=== PATIENT | male | born 1945 | race Caucasian/White ===

== ENCOUNTER 2016-08-14 10:11 | Inpatient (IN) | payer MEDICARE, OTHER ==
[2016-08-14] VITALS (14 sets, daily range): BP systolic 84–147; BP diastolic 56–72; PULSE 68–149; RESP 16–18; TEMP 98–98.5; O2SAT 97–98
[~2016-08-14] VITALS: Ht 170.2 cm; Wt 77.0 kg
[~2016-08-14 10:11] MED LIST: AUGM875T PO; FLON0.053; LISI-360 PO; LOVA20TA OR; METF850T OR; METO50TA OR; NOVOLOGP2 SQ; OMEP20TA OR; SYNT25TA
[2016-08-14] MEDS ORDERED: OMEP20TA PO (10:43)
[2016-08-14] MEDS ORDERED: LISI40TA PO (10:43)
[2016-08-14] MEDS ORDERED: LEVO25TA4 PO (10:43)
[2016-08-14] MEDS ORDERED: ASPI81CH CHEW (10:43)
[2016-08-14] MEDS ORDERED: NOVO7030P2 SQ ×2 (10:43)
[2016-08-14] MEDS ORDERED: GABA300C5 PO (10:43)
[2016-08-14] MEDS ORDERED: ATOR20TA15 PO (10:43)
[2016-08-14] MEDS ORDERED: HYDR25TA5 PO (10:43)
[2016-08-14] MEDS ORDERED: CYAN1TAB24 (10:43)
[2016-08-14] MEDS ORDERED: NITR1SUB3 SL (10:43)
[2016-08-14] MEDS ORDERED: METF-382 PO (10:43)
[2016-08-14] MEDS ORDERED: AMLO5TAB2 PO (10:43)
[2016-08-14] MEDS ORDERED: METO50TA PO (10:43)
[2016-08-14] MEDS ORDERED: MAGN400C2 PO (10:43)
[2016-08-14] MEDS ORDERED: SODIUM CHLORIDE 0.9% FLUSH 5 ML FLUSH IVF PRN ×2 (10:45→13:15)
[2016-08-14] MEDS ORDERED: ASPIRIN 325 MG TAB PO ONE (10:45)
--- NOTE | 2016-08-14 10:45 | PD ---
HPI Chief Complaint: Cardiac Complaint Time Seen by Provider: 10:34 Travel History International Travel<30 days: No Contact w/Intl Traveler<30days: No Traveled to known affect area: No History of Present Illness HPI Patient presents with concerns of elevated heart rate. Reports that he felt out of sorts overnight and when he awoke this morning he took his blood pressure which revealed elevated pulse rate. Denies any chest pain. He does have history of diabetes and coronary artery disease, hyperlipidemia, carotid disease and hypertension. Occasional cigar. Denies family history. Denies radiation to his left arm shortness of breath urinary or bowel symptoms. He is on a beta salas normally for blood pressure. Reports recent changes of his medications by his new coal chemist. PFSH Past Medical History Hx Anticoagulant Therapy: Yes (asa 81mg) Arthritis: Yes Autoimmune Disease: No Cardiovascular Problems: Yes (htn on meds, 3 vessel bypass) High Cholesterol: Yes Coronary Artery Disease: Yes Diabetes: Yes Hepatitis: Yes Hypertension: Yes Thyroid Disease: Yes Past Surgical History Coronary Artery Bypass Graft: Yes Eye Surgery: Yes (CATARACT SX) Tonsillectomy: Yes Other Surgery: Yes (CAROTID ARTERY SURGERY) Social History Alcohol Use: No Tobacco Use: Yes (OCC CIGAR) Substance Use: No Allergies-Medications (Allergen,Severity, Reaction): Coded Allergies: No Known Allergies (Unverified , 08/14/16) Reported Meds & Prescriptions Reported Meds & Active Scripts Active Reported Nitroglycerin SL (Nitroglycerin) 0.4 Mg Subl 0.4 Mg SL DIRECTED PRN ONE TABLET UNDER THE TONGUE NEEDED FOR CHEST PAIN, MAY REPEAT EVERY FIVE MINUTES FOR A TOTAL OF 3 DOSES OR CALL 911 IF NO RELIEF Levothyroxine (Levothyroxine Sodium) 25 Mcg Tab 25 Mcg PO DAILY Metformin ER (Metformin HCl) 1,000 Mg Porsha 1,000 Mg PO BID With evening meal Gabapentin 300 Mg Cap 300 Mg PO BID Omeprazole 20 Mg Tab 20 Mg PO DAILY Amlodipine (Amlodipine Besylate) 5 Mg Tab 5 Mg PO DAILY Atorvastatin (Atorvastatin Calcium) 20 Mg Tab 20 Mg PO HS Hydrochlorothiazide 25 Mg Tab 25 Mg PO DAILY Metoprolol Tartrate 50 Mg Tab 50 Mg PO BID Aspirin 81 Mg Chew 81 Mg CHEW DAILY Lisinopril 40 Mg Tab 40 Mg PO DAILY B12 (Cyanocobalamin) 1,000 Mcg Tab Magnesium Oxide 400 Mg Cap 1 Cap PO DAILY Novolin 70-30 Inj (Insulin Human Isoph/Insulin Regular) 1,000 Unit/10 Ml Vial 50 Units SQ HS Novolin 70-30 Inj (Insulin Human Isoph/Insulin Regular) 1,000 Unit/10 Ml Vial 52 Units SQ DAILY Review of Systems General / Constitutional: No: Fever Eyes: No: Visual changes HENT: No: Headaches Cardiovascular: Positive: Tachycardia, No: Chest Pain or Discomfort Respiratory: No: Shortness of Breath Gastrointestinal: No: Abdominal Pain Genitourinary: No: Dysuria Musculoskeletal: No: Pain Skin: No Rash Neurologic: No: Weakness Psychiatric: No: Depression Endocrine: No: Polydipsia Hematologic/Lymphatic: No: Easy Bruising Physical Exam Narrative GENERAL: Well-nourished, well-developed patient. SKIN: Warm and dry. HEAD: Normocephalic. EYES: No scleral icterus. No injection or drainage. NECK: Supple, trachea midline. No JVD or lymphadenopathy. CARDIOVASCULAR: Regular rate and rhythm without murmurs, tachycardic RESPIRATORY: Breath sounds equal bilaterally. No accessory muscle use. GASTROINTESTINAL: Abdomen soft, non-tender, nondistended. MUSCULOSKELETAL: No cyanosis, or edema. BACK: Nontender without obvious deformity. No CVA tenderness. Data Data Last Documented VS Vital Signs Date Time Temp Pulse Resp B/P Pulse Ox O2 Delivery O2 Flow Rate FiO2 08/14/16 11:39 146 18 84/57 98 Room Air 08/14/16 10:15 98.5 Orders Electrocardiogram (08/14/16 10:34) Ckmb (Isoenzyme) Profile (08/14/16 10:34) Complete Blood Count With Diff (08/14/16 10:34) Comprehensive Metabolic Panel (08/14/16 10:34) Magnesium (Mg) (08/14/16 10:34) Prothrombin Time / Inr (Pt) (08/14/16 10:34) Act Partial Throm Time (Ptt) (08/14/16 10:34) Troponin I (08/14/16 10:34) Chest, Single Ap (08/14/16 10:34) Ecg Monitoring (08/14/16 10:34) Bilateral Bp Monitoring (08/14/16 10:34) Iv Access Insert/Monitor (08/14/16 10:34) Oximetry (08/14/16 10:34) Oxygen Administration (08/14/16 10:34) Aspirin (Aspirin) (08/14/16 10:45) Sodium Chloride 0.9% Flush (Ns Flush) (08/14/16 10:45) Metoprolol Tartrate Inj (Lopressor Inj) (08/14/16 10:45) CKMB (08/14/16 10:56) CKMB% (08/14/16 10:56) Thyroid Stimulating Hormone (08/14/16 12:29) Digoxin Inj (Lanoxin Inj) (08/14/16 13:00) Admit Order (Ed Use Only) (08/14/16 ) ^ Grinder Operator External Tool / Telemetry (08/14/16 13:04) Vital Signs (Adult) Q4H (08/14/16 13:04) Diet 1800 Ada Cons Carb (08/14/16 Lunch) Activity Oob With Assistance (08/14/16 13:04) Bedside Glucose MAICOL.AC&HS (08/14/16 13:04) Creatine Kinase (Cpk) (08/14/16 17:00) Creatine Kinase (Cpk) (08/14/16 23:00) Troponin I (08/14/16 17:00) Troponin I (08/14/16 23:00) ^ Saline Lock (08/14/16 13:04) Resp Oxygen Smith C Titrat 1-4 L (08/14/16 ) ^ Notify Dr: Other (08/14/16 13:04) Ondansetron Inj (Zofran Inj) (08/14/16 13:15) Acetaminophen (Tylenol) (08/14/16 13:15) Acetaminophen Supp (Tylenol Supp) (08/14/16 13:15) Sodium Chloride 0.9% Flush (Ns Flush) (08/14/16 21:00) Sodium Chloride 0.9% Flush (Ns Flush) (08/14/16 13:15) Consult Cardiology (08/14/16 13:04) Labs Laboratory Tests Test 08/14/16 10:56 White Blood Count 7.9 TH/MM3 Red Blood Count 4.31 MIL/MM3 Hemoglobin 13.3 GM/DL Hematocrit 40.0 % Mean Corpuscular Volume 92.7 FL Mean Corpuscular Hemoglobin 30.9 PG Mean Corpuscular Hemoglobin 33.3 % Concent Red Cell Distribution Width 13.1 % Platelet Count 172 TH/MM3 Mean Platelet Volume 8.7 FL Neutrophils (%) (Auto) 57.3 % Lymphocytes (%) (Auto) 29.4 % Monocytes (%) (Auto) 10.1 % Eosinophils (%) (Auto) 2.3 % Basophils (%) (Auto) 0.9 % Neutrophils # (Auto) 4.5 TH/MM3 Lymphocytes # (Auto) 2.3 TH/MM3 Monocytes # (Auto) 0.8 TH/MM3 Eosinophils # (Auto) 0.2 TH/MM3 Basophils # (Auto) 0.1 TH/MM3 CBC Comment DIFF FINAL Differential Comment Prothrombin Time 10.9 SEC Prothromb Time International 1.0 RATIO Ratio Activated Partial 32.0 SEC Thromboplast Time Sodium Level 141 MEQ/L Potassium Level 4.4 MEQ/L Chloride Level 105 MEQ/L Carbon Dioxide Level 25.3 MEQ/L Anion Gap 11 MEQ/L Blood Urea Nitrogen 20 MG/DL Creatinine 1.10 MG/DL Estimat Glomerular Filtration 66 ML/MIN Rate Random Glucose 314 MG/DL Calcium Level 9.0 MG/DL Magnesium Level 1.9 MG/DL Total Bilirubin 0.4 MG/DL Aspartate Amino Transf 27 U/L (AST/SGOT) Alanine Aminotransferase 27 U/L (ALT/SGPT) Alkaline Phosphatase 49 U/L Total Creatine Kinase 170 U/L Creatine Kinase MB 2.8 NG/ML Troponin I 0.39 NG/ML Total Protein 7.3 GM/DL Albumin 3.5 GM/DL Thyroid Stimulating Hormone 3.000 uIU/ML [address] [place] [address] Medical Decision Making Medical Screen Exam Complete: Yes Emergency Medical Condition: Yes Differential Diagnosis SVT, sepsis, ACS, A. fib Narrative Course Assessment and plan discussed with patient and at bedside. Initial EKG reveals a junctional rhythm with a regular rate of 148. No previous EKG available for comparison. Unable to slow rate with IV beta salas. Cardiac enzymes are negative. Last 72 hours Impressions Chest X-Ray 08/14/16 1034 Signed Impressions: Service Date/Time: Sunday, August 14, 2016 10:59 - CONCLUSION: No acute cardiopulmonary abnormality is identified. Solo Comer MD Of note prior to digoxin dosing and after admission there was a 5-10 second period where the rate dropped to 70 and patient appeared to be in a 3-1 atrial flutter. Physician Communication Physician Communication Spoke with Dr. Disla and Dr Solitario who are in agreement will admit for serial enzymes and cardiac evaluation. Recommendations of digoxin IV dose and possible Cardizem drip versus adenosine. I appreciate Dr. Disla's input. Diagnosis Primary Impression: Tachycardia with heart rate 141-160 beats per minute Admitting Information Admitting Physician Requests: Admit Bridger Beal MD Aug 14, 2016 10:45
[2016-08-14] MEDS: METOPROLOL TARTRATE 5 MG/5 ML VIAL IVS SCH ×3 (10:55→11:20)
[2016-08-14 11:04] LABS: AUTOMATED NEUTROPHIL # 4.5 TH/MM3 (1.8-7.7); BASOPHIL # 0.1 TH/MM3 (0-0.2); BASOPHIL % 0.9 % (0.0-2.0); EOSINOPHIL # 0.2 TH/MM3 (0-0.4); EOSINOPHIL % 2.3 % (0.0-4.0); HEMO FLAGS DIFF FINAL; LYMPH % 29.4 % (9.0-44.0); LYMPHOCYTE # 2.3 TH/MM3 (1.0-4.8); MEAN CELL VOLUME 92.7 FL (80.0-100.0); MEAN CORPUSCULAR HEMOGLOBIN 30.9 PG (27.0-34.0); MEAN CORPUSCULAR HGB CONC 33.3 % (32.0-36.0); MONO % 10.1 % (0.0-8.0); NEUT % 57.3 % (16.0-70.0); PLATELET COUNT 172 TH/MM3 (150-450); RED BLOOD COUNT 4.31 MIL/MM3 (4.50-5.90); RED CELL DISTRIBUTION WIDTH 13.1 % (11.6-17.2); WHITE BLOOD COUNT 7.9 TH/MM3 (4.0-11.0)
[2016-08-14 11:12] LABS: CHLORIDE 105 MEQ/L (98-107); POTASSIUM 4.4 MEQ/L (3.5-5.1); SODIUM (NA) 141 MEQ/L (136-145)
--- NOTE | 2016-08-14 11:13 | RADHPO ---
EXAM DATE/TIME: 08/14/2016 10:59 [facility] COMPARISON: No previous studies available for comparison. INDICATIONS : Elevated heart rate , short of breath MEDICAL HISTORY : Cardiovascular disease. SURGICAL HISTORY : CABG. ENCOUNTER: Initial ACUITY: 1 day PAIN SCORE: 0/10 LOCATION: Bilateral chest FINDINGS: Portable AP view of the chest demonstrates a normal-sized cardiac silhouette. No effusion, consolidat ion, or pneumothorax is visualized. The bones and soft tissues demonstrate no acute abnormality. Coleen ent is post median sternotomy. CONCLUSION: No acute cardiopulmonary abnormality is identified. Solo Comer MD on August 14, 2016 at 11:11 Board Certified Radiologist. This report was verified electronically.
[2016-08-14 11:15] LABS: ANION GAP 11 MEQ/L (5-15); BICARBONATE 25.3 MEQ/L (21.0-32.0)
[2016-08-14 11:16] LABS: BLOOD UREA NITROGEN 20 MG/DL (7-18); MAGNESIUM 1.9 MG/DL (1.5-2.5); PROTHROMBIN TIME - PATIENT 10.9 SEC (9.8-11.6)
[2016-08-14 11:19] LABS: ALT (GPT) 27 U/L (12-78); AST (GOT) 27 U/L (15-37); GLOMERULAR FILTRATION RATE 66 ML/MIN (>89)
[2016-08-14 11:20] LABS: TOTAL BILIRUBIN ADULT 0.4 MG/DL (0.2-1.0)
[2016-08-14 11:21] LABS: ALKALINE PHOSPHATASE 49 U/L (45-117); CREATINE KINASE 170 U/L (39-308)
[2016-08-14 11:34] LABS: CKMB 2.8 NG/ML (0.5-3.6)
[2016-08-14] MEDS ORDERED: DIGOXIN 0.5 MG/2 ML VIAL IV PUSH ONE (13:00)
[2016-08-14] MEDS ORDERED: ACETAMINOPHEN 325 MG TAB PO PRN (13:15)
[2016-08-14] MEDS ORDERED: ACETAMINOPHEN 650 MG SUPP PR PRN (13:15)
[2016-08-14] MEDS ORDERED: ONDANSETRON HCL 4 MG/2 ML VIAL IV PRN (13:15)
[2016-08-14] MEDS ORDERED: DILTIAZEM INJ 125 MG in SODIUM CHLORIDE 0.9% INJ 100 ML IV SCH (14:30)
[2016-08-14] MEDS ORDERED: SODIUM CHLORIDE 0.9% FLUSH 5 ML FLUSH FLUSH PRN (14:30)
[2016-08-14] MEDS ORDERED: MAGNESIUM HYDROXIDE SUSP 30 ML CUP PO PRN (14:30)
[2016-08-14] MEDS ORDERED: DEXTROSE 50% IN WATER 50 ML VIAL(D50) IV PUSH PRN (14:30)
[2016-08-14] MEDS ORDERED: TEMAZEPAM 15 MG CAP PO PRN (14:30)
[2016-08-14] MEDS ORDERED: GLUCAGON 1 MG/ML VIAL OTHER PRN (14:30)
[2016-08-14] MEDS ORDERED: NALOXONE HCL 0.4 MG/ML AMP IV PRN (14:30)
[2016-08-14] MEDS: DILTIAZEM INJ 125 MG in SODIUM CHLORIDE 0.9% INJ 100 ML IV SCH (15:34)
[2016-08-14] MEDS: INSULIN ASPART SUPPLEMENTAL SCALE SQ SCH ×2 (16:00→19:57)
[2016-08-14] MEDS ORDERED: ENOXAPARIN SODIUM 80 MG/0.8 ML SYRINGE SQ ONE (19:45)
[2016-08-14] MEDS ORDERED: ENOXAPARIN SODIUM 30 MG/0.3 ML SYRINGE SQ ONE (19:45)
[2016-08-14] MEDS: METOPROLOL TARTRATE 50 MG TAB PO SCH (19:56)
[2016-08-14] MEDS: ATORVASTATIN 20 MG TAB PO SCH (19:56)
[2016-08-14] MEDS: GABAPENTIN 300 MG CAP PO SCH (19:56)
[2016-08-14] MEDS: SODIUM CHLORIDE 0.9% FLUSH 5 ML FLUSH FLUSH SCH (19:57)
[2016-08-14] MEDS ORDERED: SODIUM CHLORIDE 0.9% FLUSH 5 ML FLUSH IVF SCH (21:00)
[2016-08-14] MEDS ORDERED: METOPROLOL TARTRATE 25 MG TAB PO SCH (21:00)
[2016-08-15] VITALS (25 sets, daily range): BP systolic 118–153; BP diastolic 60–72; PULSE 54–79; RESP 16–18; TEMP 97–98.6; O2SAT 95–99
[2016-08-15] MEDS: LEVOTHYROXINE SODIUM 25 MCG TAB PO SCH (05:40)
[2016-08-15] MEDS: INSULIN ASPART SUPPLEMENTAL SCALE SQ SCH ×4 (06:20→20:10)
[2016-08-15 07:16] LABS: BICARBONATE 28.3 MEQ/L (21.0-32.0); POTASSIUM 3.9 MEQ/L (3.5-5.1)
[2016-08-15] MEDS: ASPIRIN 81 MG CHEW TAB CHEW SCH (08:46)
[2016-08-15] MEDS: SODIUM CHLORIDE 0.9% FLUSH 5 ML FLUSH FLUSH SCH ×2 (08:46→20:05)
[2016-08-15] MEDS: PANTOPRAZOLE SOD 20 MG DELAYED RELEASE TAB PO SCH (08:46)
[2016-08-15] MEDS: GABAPENTIN 300 MG CAP PO SCH ×2 (08:46→20:07)
[2016-08-15] MEDS: METOPROLOL TARTRATE 50 MG TAB PO SCH ×2 (08:47→20:06)
--- NOTE | 2016-08-15 09:29 | HHI.HP ---
[facility] Admission Diagnosis tachycardia Diagnoses: (1) Tachycardia with heart rate 141-160 beats per minute (2) Elevated troponin I level (3) Benign hypertension (4) Diabetes mellitus, type 2 (5) Hypothyroidism (6) Diabetic neuropathy Chief Complaint: Increased heart rate Travel History International Travel<30 Days: No Contact w/Intl Traveler <30 Da: No Traveled to Known Affected Are: No History of Present Illness 71-year-old male with a past medical history of diabetes type 2, hypothyroidism, status post CABG thousand 3, bilateral carotid stenosis initially went to [facility] ED evaluation of the sustained heart rate of 163 without any heart palpitation, chest pain or shortness of breath yesterday 08/14. Patient was then transferred to [facility] with consultation with cardiology as patient with elevated cardiac enzymes and sustained heart rate. Patient states a day before on 08/13/16 he was feeling a little bit off over was able to go out fishing and had no complaint of chest pain, febrile episode. He denies any GI bleed Review of Systems Other Other 12 systems reviewed and are negative except for the one mentioned in history of present illness Past Family Social History Past Medical History Hx Anticoagulant Therapy: Yes (asa 81mg) Arthritis: Yes Cardiovascular Problems: Yes (htn on meds, 3 vessel bypass) High Cholesterol: Yes Coronary Artery Disease: Yes Diabetes: Yes Hepatitis: Yes Hypertension: Yes Thyroid Disease: Yes Past Surgical History Coronary Artery Bypass Graft: Yes Eye Surgery: Yes (CATARACT SX) Tonsillectomy: Yes Other Surgery: Yes (CAROTID ARTERY SURGERY) Reported Medications Nitroglycerin SL (Nitroglycerin) 0.4 Mg Subl 0.4 Mg SL DIRECTED PRN ONE TABLET UNDER THE TONGUE NEEDED FOR CHEST PAIN, MAY REPEAT EVERY FIVE MINUTES FOR A TOTAL OF 3 DOSES OR CALL 911 IF NO RELIEF Levothyroxine (Levothyroxine Sodium) 25 Mcg Tab 25 Mcg PO DAILY Metformin ER (Metformin HCl) 1,000 Mg Porsha 1,000 Mg PO BID With evening meal Gabapentin 300 Mg Cap 300 Mg PO BID Omeprazole 20 Mg Tab 20 Mg PO DAILY Amlodipine (Amlodipine Besylate) 5 Mg Tab 5 Mg PO DAILY Atorvastatin (Atorvastatin Calcium) 20 Mg Tab 20 Mg PO HS Hydrochlorothiazide 25 Mg Tab 25 Mg PO DAILY Metoprolol Tartrate 50 Mg Tab 50 Mg PO BID Aspirin 81 Mg Chew 81 Mg CHEW DAILY Lisinopril 40 Mg Tab 40 Mg PO DAILY B12 (Cyanocobalamin) 1,000 Mcg Tab Magnesium Oxide 400 Mg Cap 1 Cap PO DAILY Novolin 70-30 Inj (Insulin Human Isoph/Insulin Regular) 1,000 Unit/10 Ml Vial 50 Units SQ HS Novolin 70-30 Inj (Insulin Human Isoph/Insulin Regular) 1,000 Unit/10 Ml Vial 52 Units SQ DAILY Allergies: Coded Allergies: No Known Allergies (Unverified , 08/14/16) Family History Mother had hypertension Brother has COPD Social History Alcohol Use: No Tobacco Use: Yes (OCC CIGAR) Substance Use: No Physical Exam Vital Signs Vital Signs Date Time Temp Pulse Resp B/P Pulse Ox O2 Delivery O2 Flow Rate FiO2 08/15/16 07:15 97.0 65 16 153/72 96 08/15/16 06:00 66 08/15/16 05:00 70 08/15/16 04:00 79 08/15/16 03:56 Room Air 08/15/16 03:56 98.4 65 18 133/64 99 08/15/16 03:00 74 08/15/16 02:00 70 08/15/16 01:00 62 08/15/16 00:00 98.6 62 18 121/65 97 08/15/16 00:00 66 08/15/16 00:00 Room Air 08/14/16 23:00 69 08/14/16 22:00 71 08/14/16 21:00 74 08/14/16 20:00 98.3 68 18 129/64 98 08/14/16 20:00 68 08/14/16 18:07 120 08/14/16 17:44 98.0 112 18 117/62 97 08/14/16 15:35 137 18 124/56 98 Room Air 08/14/16 13:50 103 18 115/68 98 Room Air 08/14/16 13:39 98 21 08/14/16 13:13 111 18 147/67 98 Room Air 08/14/16 11:39 146 18 84/57 98 Room Air 08/14/16 11:19 145 18 104/64 98 Room Air 08/14/16 10:58 98 Room Air 08/14/16 10:58 100/66 121/72 08/14/16 10:15 98.5 149 16 Physical Exam GENERAL: This is a well-nourished, well-developed patient, in no apparent distress. SKIN: No rashes, ecchymoses or lesions. Cool and dry. HEAD: Atraumatic. Normocephalic. No temporal or scalp tenderness. EYES: Pupils equal round and reactive. Extraocular motions intact. No scleral icterus. No injection or drainage. ENT: Nose without bleeding, purulent drainage or septal hematoma. Throat without erythema, tonsillar hypertrophy or exudate. Uvula midline. Airway patent. NECK: Trachea midline. No JVD or lymphadenopathy. Supple, nontender, no meningeal signs. CARDIOVASCULAR: Tachycardia Regular rate and rhythm without murmurs, gallops, or rubs. RESPIRATORY: Clear to auscultation. Breath sounds equal bilaterally. No wheezes , rales, or rhonchi. GASTROINTESTINAL: Abdomen soft, non-tender, nondistended. No hepato-splenomegaly , or palpable masses. No guarding. MUSCULOSKELETAL: Extremities without clubbing, cyanosis, or edema. No joint tenderness, effusion, or edema noted. No calf tenderness. Negative Homans sign bilaterally. NEUROLOGICAL: Awake and alert. Cranial nerves II through XII intact. Motor and sensory grossly within normal limits. Five out of 5 muscle strength in all muscle groups. Normal speech. Laboratory Laboratory Tests Test 08/14/16 08/14/16 08/15/16 08/15/16 10:56 19:20 00:43 06:25 White Blood Count 7.9 Red Blood Count 4.31 Hemoglobin 13.3 Hematocrit 40.0 Mean Corpuscular Volume 92.7 Mean Corpuscular Hemoglobin 30.9 Mean Corpuscular Hemoglobin 33.3 Concent Red Cell Distribution Width 13.1 Platelet Count 172 Mean Platelet Volume 8.7 Neutrophils (%) (Auto) 57.3 Lymphocytes (%) (Auto) 29.4 Monocytes (%) (Auto) 10.1 Eosinophils (%) (Auto) 2.3 Basophils (%) (Auto) 0.9 Neutrophils # (Auto) 4.5 Lymphocytes # (Auto) 2.3 Monocytes # (Auto) 0.8 Eosinophils # (Auto) 0.2 Basophils # (Auto) 0.1 CBC Comment DIFF FINAL Differential Comment Prothrombin Time 10.9 Prothromb Time International 1.0 Ratio Activated Partial 32.0 Thromboplast Time Sodium Level 141 140 Potassium Level 4.4 3.9 Chloride Level 105 103 Carbon Dioxide Level 25.3 28.3 Anion Gap 11 9 Blood Urea Nitrogen 20 16 Creatinine 1.10 0.95 Estimat Glomerular Filtration 66 78 Rate Random Glucose 314 153 Calcium Level 9.0 8.8 Magnesium Level 1.9 Total Bilirubin 0.4 Aspartate Amino Transf 27 (AST/SGOT) Alanine Aminotransferase 27 (ALT/SGPT) Alkaline Phosphatase 49 Total Creatine Kinase 170 128 103 Creatine Kinase MB 2.8 Troponin I 0.39 0.76 0.67 Total Protein 7.3 Albumin 3.5 Thyroid Stimulating Hormone 3.000 3rd Gen Result Diagram: 08/14/16 1056 08/15/16 0625 Imaging Last Impressions Chest X-Ray 08/14/16 1034 Signed Impressions: Service Date/Time: Sunday, August 14, 2016 10:59 - CONCLUSION: No acute cardiopulmonary abnormality is identified. Solo Comer MD Assessment and Plan Problem List: (1) Non-ST elevation [place] (NSTEMI) ICD Code: I21.4 Status: Acute (2) Tachycardia with heart rate 141-160 beats per minute ICD Code: R00.0 Status: Acute (3) Elevated troponin I level ICD Code: R79.89 Status: Acute (4) Benign hypertension ICD Code: I10 Status: Acute (5) Diabetes mellitus, type 2 ICD Code: E11.9 Status: Acute (6) Hypothyroidism ICD Code: E03.9 Status: Acute (7) Diabetic neuropathy ICD Code: E11.40 Status: Acute Assessment and Plan 71-year-old male with 1-NSTEMI: Status post CABG x3 2013 and bilateral carotid stenosis. ACS with elevated cardiac enzyme and normal TSH. Currently on Cardizem drip/beta salas /aspirin, status post digoxin IV 1 and Lopressor push 3 in ED. Status post Lovenox 80 mg 2 . Cardiology consultation pending and continue telemetry monitoring 2-Elevated cardiac enzyme: Cardiology consultation pending for further evaluation for possible nuclear stress test versus heart catheterization. Check 2-D echo, BNP 3-Diabetes type 2: Continue to hold oral hypoglycemic agent, on sliding scale insulin with fingerstick blood glucose monitoring 4-Hypothyroidism: Normal TSH, resume outpatient medications 5-Diabetic neuropathy: Continue Neurontin 6-Hyperlipidemia: On Lipitor, check lipid profile 7-Hypertension: Currently on Lopressor 50 mg twice a day, add Norvasc 5 mg daily. Hydrochlorothiazide and lisinopril on hold Code Status Full code Discussed Condition With Patient Physician Certification 2 Midnight Certification Type: Admission for Inpatient Services Order for Inpatient Services The services are ordered in accordance with Medicare regulations or non- Medicare payer requirements, as applicable. In the case of services not specified as inpatient-only, they are appropriately provided as inpatient services in accordance with the 2-midnight benchmark. Estimated LOS (days): 2 days is the estimated time the patient will need to remain in the hospital, assuming treatment plan goals are met and no additional complications. Post-Hospital Plan: Not yet determined Champ Kingston MD Aug 15, 2016 09:29
[2016-08-15] MEDS ORDERED: IODIXANOL 320 MG/ML 50 ML VIAL (for Cath Lab) IV ONE (12:10)
[2016-08-15] MEDS ORDERED: IODIXANOL 320 MG/ML 100 ML VIAL (for Cath Lab) OTHER ONE (12:10)
[2016-08-15] MEDS ORDERED: HEPARIN-NS/PF INJ 500 ML ONE (12:16)
[2016-08-15] MEDS ORDERED: HEPARIN SODIUM - IV 10,000 UNITS/10 ML VIAL ONE (12:46)
[2016-08-15] MEDS ORDERED: CLOPIDOGREL 300 MG TAB ONE (13:20)
[2016-08-15] MEDS ORDERED: TIROFIBAN INFUSION INJ 250 ML IV ONE (13:22)
[2016-08-15] MEDS ORDERED: SODIUM CHLORIDE 0.9% FLUSH 5 ML FLUSH IVF PRN (13:45)
[2016-08-15] MEDS ORDERED: CLOPIDOGREL 300 MG TAB PO ONE (13:45)
[2016-08-15] MEDS ORDERED: MISC INFORMATION XX ONE (13:45)
[2016-08-15] MEDS ORDERED: TIROFIBAN INFUSION INJ 250 ML IV SCH (15:00)
[2016-08-15] MEDS: DILTIAZEM INJ 125 MG in SODIUM CHLORIDE 0.9% INJ 100 ML IV SCH (17:00)
--- NOTE | 2016-08-15 17:34 | MB ---
cc: KO GOODWIN M.D. DATE OF CONSULTATION 08/15/2016 REASON FOR CONSULTATION Donnell is a very pleasant 71-year-old gentleman status post CABG 14 years ago, followed at the [facility]. Presented to the [facility] ER yesterday with SVT which was regular. The patient perceived his heart rate to be elevated and he took his blood pressure which also showed an elevated pulse. Denies any chest pain, fevers, chills, cough, GI or bleeding, paroxysmal nocturnal dyspnea, orthopnea, syncope or dizziness. PAST MEDICAL HISTORY Includes: 1. Diabetes. 2. Coronary artery disease. 3. Status post CABG. 4. Hyperlipidemia. 5. Carotid stenosis. 6. Hypertension. 7. Tobacco use. 8. Arthritis. 9. Hypertension. 10. Hepatitis. 11. Thyroid disease. 12. Status post carotid endarterectomy. 13. Tonsillectomy. 14. Cataract surgery. SOCIAL HISTORY He smokes a cigar occasionally. Alcohol he denies. ALLERGIES NONE. MEDICATIONS PRIOR TO ADMISSION 1. Sublingual nitroglycerin. 2. Levothyroxine. 3. Metformin. 4. Gabapentin. 5. Omeprazole. 6. Amlodipine 5 daily. 7. Atorvastatin 20 bedtime. 8. HCTZ 25 daily. 9. Metoprolol 50 b.i.d. 10. Aspirin 81 mg daily. 11. Lisinopril 40 daily. 12. B12. 13. Magnesium oxide. 14. Novolin. MEDICATIONS In the hospital: 1. Amlodipine 5 mg daily. 2. Aspirin 81 mg daily. 3. Pantoprazole 20 mg daily. 4. Levothyroxine 25 mcg daily. 5. Atorvastatin 20 at bedtime. 6. Gabapentin 300 b.i.d. 7. Metoprolol 50 b.i.d. 8. Lovenox 80 subcu x1. 9. Cardizem drip IV. 10. Digoxin 0.5 IV. PHYSICAL EXAMINATION VITAL SIGNS: Blood pressure 153/72, pulse 65, temperature 97.0. Respiratory rate 16. Sats 96% on room air. GENERAL: He is alert and oriented times three in no acute distress. NECK: Supple. No JVD or bruit. CARDIOVASCULAR: S1-S2. No murmurs, rubs, or gallops. LUNGS: Clear to auscultation bilaterally. ABDOMEN: Soft, nontender, nondistended with positive bowel sounds. EXTREMITIES: No extremity edema. LABORATORY DATA White count 7.9, hemoglobin 15.3, hematocrit 40.0, platelet count 172. Initial troponin is 0.39, second troponin 0.76, third troponin 0.67. Sodium 140, potassium 3.9, chloride 103, bicarbonate 23, BUN 16, creatinine 0.95. Glucose 133. TSH 3.0. INR is 1.0. IMAGING Chest x-ray no acute cardiopulmonary abnormality is identified. LABORATORY DATA EKG on admission SVT at a rate of [address] depression mm in the inferior leads. J point elevation in lead V1, V2, V3. FINAL DIAGNOSES 1. Non-ST elevation myocardial infarction. 2. Coronary artery disease. 3. Status post coronary artery bypass graft. 4. Diabetes mellitus. 5. Supraventricular tachycardia. 6. Tobacco use. 7. Hypertension. 8. Hyperlipidemia. DISCUSSION The patient presents with a non-ST elevation myocardial infarction. He is diabetic with bypass graft greater than 10 years old, therefore I do think he is high risk for ischemic etiology and high risk for an adverse cardiac event without urgent left heart catheterization, therefore, I think urgent left heart catheterization is medically necessary. I have explained to the patient the risk of the cath / PCI is a 10% chance of , stroke, heart attack, bleeding, need for emergency bypass surgery, need for surgery, need for dialysis, need for blood transfusion, anaphylaxis, arrhythmia, bleeding and infection. The patient understands and consents. Otherwise continue beta salas, aspirin, Lipitor and amlodipine. Cardizem drip p.r.n. Consider adding an SHEYLA inhibitor. Also note the patient has no known drug allergies. Ko Goodwin MD AWC/KK /12:30 PM /5:09 PM
[2016-08-15] MEDS ORDERED: ATROPINE SULFATE 1 MG/10 ML SYRINGE ONE (19:02)
[2016-08-15] MEDS ORDERED: EPINEPHrine HCL (1:10,000) 1 MG/10 ML SYRINGE ONE (19:02)
[2016-08-15] MEDS: SODIUM CHLORIDE 0.9% FLUSH 5 ML FLUSH IVF SCH (20:05)
[2016-08-15] MEDS: ATORVASTATIN 20 MG TAB PO SCH (20:06)
[2016-08-16] VITALS (17 sets, daily range): BP systolic 136–141; BP diastolic 68–70; PULSE 60–78; RESP 18; TEMP 98–98.6; O2SAT 97–98
[2016-08-16 05:12] LABS: AUTOMATED NEUTROPHIL # 4.2 TH/MM3 (1.8-7.7); BASOPHIL # 0.1 TH/MM3 (0-0.2); BASOPHIL % 1.2 % (0.0-2.0); EOSINOPHIL # 0.1 TH/MM3 (0-0.4); EOSINOPHIL % 1.9 % (0.0-4.0); HEMO FLAGS DIFF FINAL; LYMPHOCYTE # 2.4 TH/MM3 (1.0-4.8); MEAN CELL VOLUME 91.4 FL (80.0-100.0); MEAN CORPUSCULAR HEMOGLOBIN 31.3 PG (27.0-34.0); MEAN CORPUSCULAR HGB CONC 34.3 % (32.0-36.0); MONO % 12.1 % (0.0-8.0); NEUT % 53.8 % (16.0-70.0); PLATELET COUNT 156 TH/MM3 (150-450); RED BLOOD COUNT 3.94 MIL/MM3 (4.50-5.90); RED CELL DISTRIBUTION WIDTH 13.2 % (11.6-17.2); WHITE BLOOD COUNT 7.8 TH/MM3 (4.0-11.0)
[2016-08-16] MEDS: LEVOTHYROXINE SODIUM 25 MCG TAB PO SCH (05:12)
[2016-08-16 05:30] LABS: BICARBONATE 26.4 MEQ/L (21.0-32.0); POTASSIUM 3.8 MEQ/L (3.5-5.1)
[2016-08-16 05:32] LABS: HDL CHOLESTEROL 40.8 MG/DL (40.0-60.0)
[2016-08-16] MEDS: INSULIN ASPART SUPPLEMENTAL SCALE SQ SCH ×2 (06:30→11:00)
[2016-08-16] MEDS: METOPROLOL TARTRATE 50 MG TAB PO SCH (08:30)
[2016-08-16] MEDS: GABAPENTIN 300 MG CAP PO SCH (08:30)
[2016-08-16] MEDS: PANTOPRAZOLE SOD 20 MG DELAYED RELEASE TAB PO SCH (08:30)
[2016-08-16] MEDS: ASPIRIN 81 MG CHEW TAB CHEW SCH (08:31)
[2016-08-16] MEDS: SODIUM CHLORIDE 0.9% FLUSH 5 ML FLUSH FLUSH SCH (08:31)
[2016-08-16] MEDS: SODIUM CHLORIDE 0.9% FLUSH 5 ML FLUSH IVF SCH (08:32)
[2016-08-16] MEDS ORDERED: ASPIRIN 81 MG CHEW TAB PO SCH (09:00)
[2016-08-16] MEDS ORDERED: CLOPIDOGREL 75 MG TAB PO SCH (09:00)
[2016-08-16] MEDS ORDERED: RAMIPRIL 2.5 MG CAP PO SCH (09:00)
[2016-08-16] MEDS ORDERED: amLODIPine BESYLATE 5 MG TAB PO SCH (09:00)
--- NOTE | 2016-08-16 09:57 | HHI.PR ---
Subjective Remarks Follow-up non-ST elevation PR 08/16/16-patient seen and examined, status post left heart catheterization 08/15 and currently patient denies any chest pain or shortness of breath Objective Vitals Vital Signs Date Time Temp Pulse Resp B/P Pulse Ox O2 Delivery O2 Flow Rate FiO2 08/16/16 09:49 98.6 68 18 141/70 98 08/16/16 09:48 74 08/16/16 08:04 76 08/16/16 07:46 78 08/16/16 07:46 Room Air 08/16/16 06:00 66 08/16/16 05:00 64 08/16/16 04:00 60 08/16/16 03:45 98.3 60 18 136/68 98 08/16/16 03:45 Room Air 08/16/16 03:00 62 08/16/16 02:00 63 08/16/16 01:00 61 08/16/16 00:00 98.1 67 18 141/68 97 08/16/16 00:00 67 08/16/16 00:00 Room Air 08/15/16 23:00 65 08/15/16 22:00 62 08/15/16 21:00 63 08/15/16 20:00 98.4 60 18 138/65 99 08/15/16 20:00 Room Air 08/15/16 20:00 60 08/15/16 18:16 71 08/15/16 17:00 66 08/15/16 16:00 60 08/15/16 15:26 98.6 54 16 118/60 95 08/15/16 15:00 57 08/15/16 14:00 60 08/15/16 11:00 62 08/15/16 11:00 98.4 63 16 151/70 97 08/15/16 11:00 97 Room Air 08/15/16 10:00 67 I/O 08/15/16 08/15/16 08/15/16 08/16/16 08/16/16 08/16/16 07:00 15:00 23:00 07:00 15:00 23:00 Intake Total 290 ml 480 ml 242 ml 0 ml Output Total 600 ml 425 ml 750 ml Balance -310 ml 55 ml -508 ml 0 ml Intake Oral 240 ml 480 ml 240 ml IV Total 50 ml 2 ml 0 ml Output Urine Total 600 ml 425 ml 750 ml # Bowel Movements 0 0 0 Result Diagram: 08/16/169 08/16/169 Imaging Last Impressions Chest X-Ray 08/14/16 1034 Signed Impressions: Service Date/Time: Sunday, August 14, 2016 10:59 - CONCLUSION: No acute cardiopulmonary abnormality is identified. Solo Comer MD Objective Remarks GENERAL: NAD SKIN: Warm and dry. HEAD: Normocephalic. EYES: No scleral icterus. No injection or drainage. NECK: Supple, trachea midline. No JVD or lymphadenopathy. CARDIOVASCULAR: Regular rate and rhythm without murmurs, gallops, or rubs. RESPIRATORY: Breath sounds equal bilaterally. No accessory muscle use. GASTROINTESTINAL: Abdomen soft, non-tender, nondistended. MUSCULOSKELETAL: No cyanosis, or edema. BACK: Nontender without obvious deformity. No CVA tenderness. A/P Problem List: (1) Non-ST elevation [place] (NSTEMI) ICD Code: I21.4 Status: Acute (2) Tachycardia with heart rate 141-160 beats per minute ICD Code: R00.0 Status: Acute (3) Elevated troponin I level ICD Code: R79.89 Status: Acute (4) Benign hypertension ICD Code: I10 Status: Chronic (5) Diabetes mellitus, type 2 ICD Code: E11.9 Status: Chronic (6) Hypothyroidism ICD Code: E03.9 Status: Chronic (7) Diabetic neuropathy ICD Code: E11.40 Status: Chronic Assessment and Plan 71-year-old male with 1-NSTEMI: Status post CABG x3 2013 and bilateral carotid stenosis. ACS with elevated cardiac enzyme and normal TSH. Status post left heart catheterization with stent placement 08/15/16 and continue with Currently on Plavix/beta salas /aspirin /Lipitor/Altace no longer on Cardizem drip. status post digoxin IV 1 and Lopressor push 3 in ED. Status post Lovenox 80 mg 2 . Cardiology consultation pending and continue telemetry monitoring. 2-D echo pending, BNP 55 2-Diabetes type 2: Continue to hold oral hypoglycemic agent, on sliding scale insulin with fingerstick blood glucose monitoring 3-Hypothyroidism: Normal TSH, continue outpatient medications 4-Diabetic neuropathy: Continue Neurontin 5-Hyperlipidemia: On Lipitor 20 mg at bedtime, check lipid profile 6-Hypertension: Currently on Lopressor 50 mg twice a day,Norvasc 5 mg daily, Altace 2.5 mg daily. Hydrochlorothiazide on hold Champ Kingston MD Aug 16, 2016 09:57
--- NOTE | 2016-08-16 10:02 | HHI.DS ---
Discharge Summary Admission Date Aug 14, 2016 at 13:12 Discharge Date: Aug 16, 2016 Admitting Diagnosis tachycardia (1) Non-ST elevation [place] (NSTEMI) ICD Code: I21.4 (2) Tachycardia with heart rate 141-160 beats per minute ICD Code: R00.0 (3) Elevated troponin I level ICD Code: R79.89 (4) Benign hypertension ICD Code: I10 (5) Diabetes mellitus, type 2 ICD Code: E11.9 (6) Hypothyroidism ICD Code: E03.9 (7) Diabetic neuropathy ICD Code: E11.40 Procedures Left heart catheterization with stent placement 08/15/16 Brief History - From Admission 71-year-old male with a past medical history of diabetes type 2, hypothyroidism, status post CABG thousand 3, bilateral carotid stenosis initially went to [facility] evaluation of the sustained heart rate of 163 without any heart palpitation, chest pain or shortness of breath yesterday 08/14. Patient was then transferred to [facility] with consultation with cardiology as patient with elevated cardiac enzymes and sustained heart rate. Patient states a day before on 08/13/16 he was feeling a little bit off over was able to go out fishing and had no complaint of chest pain, febrile episode. He denies any GI bleed CBC/BMP: 08/16/16 0409 08/16/16 0409 Significant Findings Laboratory Tests Test 08/14/16 08/14/16 08/15/16 08/15/16 10:56 19:20 00:43 06:25 Red Blood Count 4.31 MIL/MM3 (4.50-5.90) Monocytes (%) (Auto) 10.1 % (0.0-8.0) Activated Partial 32.0 SEC Thromboplast Time (24.3-30.1) Blood Urea Nitrogen 20 MG/DL (7-18) Estimat Glomerular Filtration 66 ML/MIN (>89) 78 ML/MIN (>89) Rate Random Glucose 314 MG/DL 153 MG/DL (74-106) (74-106) Troponin I 0.39 NG/ML 0.76 NG/ML 0.67 NG/ML (0.02-0.05) (0.02-0.05) (0.02-0.05) Test 08/16/16 04:09 Red Blood Count 3.94 MIL/MM3 (4.50-5.90) Hemoglobin 12.3 GM/DL (13.0-17.0) Hematocrit 36.0 % (39.0-51.0) Monocytes (%) (Auto) 12.1 % (0.0-8.0) Random Glucose 168 MG/DL (74-106) Calcium Level 8.4 MG/DL (8.5-10.1) PE at Discharge GENERAL: NAD SKIN: Warm and dry. HEAD: Normocephalic. EYES: No scleral icterus. No injection or drainage. NECK: Supple, trachea midline. No JVD or lymphadenopathy. CARDIOVASCULAR: Regular rate and rhythm without murmurs, gallops, or rubs. RESPIRATORY: Breath sounds equal bilaterally. No accessory muscle use. GASTROINTESTINAL: Abdomen soft, non-tender, nondistended. MUSCULOSKELETAL: No cyanosis, or edema. BACK: Nontender without obvious deformity. No CVA tenderness. Hospital Course Patient initially presented to the ED with SVT for which he was treated with Lopressor push 3, digoxin IV 1 and placed on Cardizem drip. Then diagnosed with non-ST elevation AL for which cardiology was consulted and patient underwent left heart catheterizations with PCI with stent placement on . He was started on Plavix, aspirin, Altace and continue on Lipitor as well as beta salas. Patient oral hypoglycemic agent were held and he was started on a sliding scale insulin with fingerstick blood glucose monitoring. Treatment for other chronic medical conditions including hypothyroidism and diabetic neuropathy were resumed. His vitals remained stable and patient condition improved prior to discharge. Pt Condition on Discharge: Stable Discharge Disposition: Discharge Home Discharge Time: <= 30 minutes Discharge Instructions DIET: Follow Instructions for: Diabetic Diet Activities you can perform: Regular-No Restrictions Follow up Referrals: Cardiology PCP Follow-up - 1 Week New Medications: Clopidogrel (Plavix) 75 Mg Tab 75 MG PO DAILY Regulate Heart Beat #30 Ref 7 TAB Ramipril (Ramipril) 2.5 Mg Cap 2.5 MG PO DAILY Blood Pressure Management #30 Ref 7 CAP Continued Medications: Amlodipine (Amlodipine) 5 Mg Tab 5 MG PO DAILY Blood Pressure Management #30 Ref 0 TAB Aspirin (Aspirin) 81 Mg Chew 81 MG CHEW DAILY Ref 0 TAB Atorvastatin (Atorvastatin) 20 Mg Tab 20 MG PO HS Cholesterol Management #30 Ref 0 TAB Cyanocobalamin (B12) 1,000 Mcg Tab Gabapentin (Gabapentin) 300 Mg Cap 300 MG PO BID #60 Ref 0 CAP Insulin Human Isophane-Regular 70-30 Inj (Novolin 70-30 Inj) 1,000 Unit/10 Ml Vial 52 UNITS SQ DAILY Blood Sugar Management Ref 0 ML Insulin Human Isophane-Regular 70-30 Inj (Novolin 70-30 Inj) 1,000 Unit/10 Ml Vial 50 UNITS SQ HS Blood Sugar Management Ref 0 ML Levothyroxine (Levothyroxine) 25 Mcg Tab 25 MCG PO DAILY Thyroid #30 Ref 0 TAB Magnesium Oxide (Magnesium Oxide) 400 Mg Cap 1 CAP PO DAILY Metformin ER (Metformin ER) 1,000 Mg Porsha 1000 MG PO BID With evening meal Blood Sugar Management #30 Ref 0 TAB Metoprolol Tartrate (Metoprolol Tartrate) 50 Mg Tab 50 MG PO BID #60 Ref 0 TAB Nitroglycerin SL (Nitroglycerin SL) 0.4 Mg Subl 0.4 MG SL DIRECTED ONE TABLET UNDER THE TONGUE NEEDED FOR CHEST PAIN, MAY REPEAT EVERY FIVE MINUTES FOR A TOTAL OF 3 DOSES OR CALL 911 IF NO RELIEF PRN CHEST PAIN #100 Ref 0 TAB.SL Omeprazole (Omeprazole) 20 Mg Tab 20 MG PO DAILY #30 Ref 0 TAB Discontinued Medications: Hydrochlorothiazide (Hydrochlorothiazide) 25 Mg Tab 25 MG PO DAILY #30 Ref 0 TAB Lisinopril (Lisinopril) 40 Mg Tab 40 MG PO DAILY Blood Pressure Management #30 Ref 0 TAB Champ Kingston MD Aug 16, 2016 10:02
[2016-08-16] MEDS ORDERED: PLAV75TA29 PO (10:05)
[2016-08-16] MEDS ORDERED: RAMI2.5C PO (10:05)
--- NOTE | 2016-08-16 14:46 | PD.CARD.PN ---
Subjective Subjective Remarks alert in nad Objective Vital Signs / I&O Vital Signs Date Time Temp Pulse Resp B/P Pulse Ox O2 Delivery O2 Flow Rate FiO2 08/16/16 14:08 62 08/16/16 13:00 68 08/16/16 12:05 98.0 66 18 138/68 98 08/16/16 12:05 66 08/16/16 11:31 68 08/16/16 10:29 62 08/16/16 09:49 98.6 68 18 141/70 98 08/16/16 09:48 74 08/16/16 08:04 76 08/16/16 07:46 78 08/16/16 07:46 Room Air 08/16/16 06:00 66 08/16/16 05:00 64 08/16/16 04:00 60 08/16/16 03:45 98.3 60 18 136/68 98 08/16/16 03:45 Room Air 08/16/16 03:00 62 08/16/16 02:00 63 08/16/16 01:00 61 08/16/16 00:00 98.1 67 18 141/68 97 08/16/16 00:00 67 08/16/16 00:00 Room Air 08/15/16 23:00 65 08/15/16 22:00 62 08/15/16 21:00 63 08/15/16 20:00 98.4 60 18 138/65 99 08/15/16 20:00 Room Air 08/15/16 20:00 60 08/15/16 18:16 71 08/15/16 17:00 66 08/15/16 16:00 60 08/15/16 15:26 98.6 54 16 118/60 95 08/15/16 15:00 57 I/O 08/15/16 08/15/16 08/15/16 08/16/16 08/16/16 08/16/16 07:00 15:00 23:00 07:00 15:00 23:00 Intake Total 290 ml 480 ml 242 ml 0 ml Output Total 600 ml 425 ml 750 ml Balance -310 ml 55 ml -508 ml 0 ml Intake Oral 240 ml 480 ml 240 ml IV Total 50 ml 2 ml 0 ml Output Urine Total 600 ml 425 ml 750 ml # Bowel Movements 0 0 0 Physical Exam GENERAL: SKIN: Warm and dry. HEAD: Normocephalic. EYES: No scleral icterus. No injection or drainage. NECK: Supple, trachea midline. No JVD or lymphadenopathy. CARDIOVASCULAR: Regular rate and rhythm without murmurs, gallops, or rubs. RESPIRATORY: Breath sounds equal bilaterally. No accessory muscle use. GASTROINTESTINAL: Abdomen soft, non-tender, nondistended. MUSCULOSKELETAL: No cyanosis, or edema. BACK: Nontender without obvious deformity. No CVA tenderness. Laboratory Laboratory Tests Test 08/16/16 04:09 White Blood Count 7.8 TH/MM3 Red Blood Count 3.94 MIL/MM3 Hemoglobin 12.3 GM/DL Hematocrit 36.0 % Mean Corpuscular Volume 91.4 FL Mean Corpuscular Hemoglobin 31.3 PG Mean Corpuscular Hemoglobin 34.3 % Concent Red Cell Distribution Width 13.2 % Platelet Count 156 TH/MM3 Mean Platelet Volume 8.5 FL Neutrophils (%) (Auto) 53.8 % Lymphocytes (%) (Auto) 31.0 % Monocytes (%) (Auto) 12.1 % Eosinophils (%) (Auto) 1.9 % Basophils (%) (Auto) 1.2 % Neutrophils # (Auto) 4.2 TH/MM3 Lymphocytes # (Auto) 2.4 TH/MM3 Monocytes # (Auto) 0.9 TH/MM3 Eosinophils # (Auto) 0.1 TH/MM3 Basophils # (Auto) 0.1 TH/MM3 CBC Comment DIFF FINAL Differential Comment Sodium Level 139 MEQ/L Potassium Level 3.8 MEQ/L Chloride Level 105 MEQ/L Carbon Dioxide Level 26.4 MEQ/L Anion Gap 8 MEQ/L Blood Urea Nitrogen 13 MG/DL Creatinine 0.83 MG/DL Estimat Glomerular Filtration 91 ML/MIN Rate Random Glucose 168 MG/DL Calcium Level 8.4 MG/DL Total Creatine Kinase 75 U/L Triglycerides Level 116 MG/DL Cholesterol Level 126 MG/DL LDL Cholesterol 62 MG/DL HDL Cholesterol 40.8 MG/DL Cholesterol/HDL Ratio 3.08 RATIO Assessment and Plan Problem List: (1) Elevated troponin I level (2) Tachycardia with heart rate 141-160 beats per minute (3) Benign hypertension (4) Diabetic neuropathy (5) Non-ST elevation [place] (NSTEMI) (6) Diabetes mellitus, type 2 (7) Hypothyroidism (8) CAD (coronary artery disease) Assessment and Plan 1.) CAD - s/p pci lcx, assymptomatic, ok to dc from cv standpoint on aspirin, plavix, [facility], f/u with [facility] if [facility], d/w patient and his and daughter NighatKo MD Aug 16, 2016 14:46
--- NOTE | 2016-08-16 18:52 | EKG ---
Date Performed: 08/15/2016 Time Performed: 17:29:58 PTAGE: 71 years EKG: Sinus rhythm . Inferior ST-T changes are nonspecific When compared to prior tracing supraventricular tachycardia i s no longer present. Borderline ECG PREVIOUS TRACING : 08/14/2016 10.25 DOCTOR: Asya Ramirez Interpretating Date/Time 08/16/2016 18:51:42
--- NOTE | 2016-08-16 21:51 | EKG ---
Date Performed: 08/14/2016 Time Performed: 10:25:02 PTAGE: 71 years EKG: Probable sinus tachycardia Nonspecific ST and T wave abnormalities Abnormal ECG PREVIOUS TRACING : 07/10/2003 03.51 Compared to the previous tracing, rate has increased DOCTOR: Alessandro Yusuf Interpretating Date/Time 08/16/2016 21:51:39
--- NOTE | 2016-08-19 08:19 | MA ---
cc: MARVIN GOODWIN M.D. DATE 08/15/2016 PROCEDURE PERFORMED Left heart catheterization, left ventriculography, coronary angiography, saphenous vein angiography, SPENCE angiography, PCI bare metal stent proximal left circumflex. INDICATIONS Non-STEMI status post CABG June, coronary disease, diabetes mellitus, arrhythmia, anginal equivalent unstable angina, [place] [employer] Class IV angina, peripheral vascular disease, tobacco use, multiple cardiac risk factors. PROCEDURE The patient was brought to the cardiac catheterization laboratory, prepped and draped in the usual sterile fashion. 10 cc of 1% lidocaine was used to locally anesthetize the right common femoral artery. A 4-Sudanese sheath successfully placed in the right common femoral artery. A 4-Sudanese JR-4, JL-4 and SPENCE catheters were used to perform left ventriculopathy, coronary angiography, left saphenous vein angiography and SPENCE angiography. FINDINGS The LV pressure is 205/8-10, EF 60%. The right coronary artery is nondominant and has a long proximal 70% stenosis. The vein graft to diagonal artery is a widely patent graft. There is a vein graft to high obtuse marginal vessel/diagonal vessel which is widely patent. The [place] vessel beyond the graft just proximal to the graft insertion site has a 20% stenosis. There is retrograde filling to a point of occlusion approximately 30 mm proximal to the graft insertion site. This also retrograde fills a more medial small branch which is probably a 1.5 to 2 mm vessel with the proximal segment tapering to a 0.5 mm vessel and bifurcated distally. The SPENCE to LAD is widely patent. The LAD is transapical and beyond the graft insertion site has no significant obstructive disease. It fills retrograde to a point of competitive flow in the proximal mid segment of the LAD. The left main coronary artery has mild diffuse disease up to 30% angiographically. There is a large dominant left circumflex vessel which has a complex tortuous focal 95% stenosis. The dominant left circ supplies a small to medium size right PDA and also distal posterolateral artery. The LAD has a 50% proximal stenosis tapering to an 80% stenosis with competitive flow seen in the mid segment. The first diagonal artery is a small vessel with no significant obstructive disease. Also note, I do not see any proximal obtuse marginal vessel or mid obtuse marginal vessel off the left circ suggesting they are occluded. DISCUSSION As the patient has unexplained arrhythmia, no prior history of arrhythmia with a history of diabetes, I suspect that the circumflex vessel stenosis is the culprit lesion. It does supply a medium-sized right PDA and the patient presents with a non-STEMI and has diabetes, multiple risk factors including peripheral vascular disease, and tobacco use, therefore I do think it medically indicated to proceed with PCI of the proximal left circumflex vessel. I exchanged the 4-Sudanese sheath to a 6-Sudanese sheath. 70 units per kilo of heparin was given. The initial ACT 240, an additional 1500 units of heparin was given. Final ACT pending at the time of dictation. I was able to pass the 0.3.5 wire across the right proximal common iliac artery, but I could not pass a 6-Sudanese 4.0 XB. I was able to pass a JL-4, however this did not have enough guide support for proper angulation to cannulate the proximal left circumflex vessel with an 0.014 Prowater wire, therefore I tried an XB 4.0, but the tip length was to long to engage the left main. I did have to use an Amplatz wire to advance the catheter tip beyond the right proximal common iliac artery. I then placed a 6-Sudanese XB 2.5 guide into the left main coronary artery. Again I did have to use the Amplatz wire to get past the proximal common iliac artery. I was unable to cross the proximal circumflex vessel stenosis with the 0.014 wire alone. I used a 2.5 x 12 Euphora balloon to support the wire and was able to cross the lesion. I was not able to advance the 2.5 x 12 Euphora balloon due to vessel stenosis severity. I therefore used a 1.5 12 mm Euphora balloon to cross the lesion and predilated this lesion with four inflations of up to 17 atmospheres up to 20 seconds. I was then able to use the 2.5 x 12 Euphora balloon to cross the lesion. I did four inflation of up to 17 atmospheres up to 20 seconds. This resulted in complete opening of the stenosis to 0%. I then placed a 2.5 x 12 Integrity stent with one inflation 16 atmospheres for 20 seconds. The stenosis went from 95% to 0% with RAFAEL-III flow. The patient had no symptoms suggesting silent ischemia. CONCLUSION 1. SVT, non-STEMI culprit 95% proximal dominant left circumflex vessel stenosis as detailed above. 2. Otherwise, severe three-vessel coronary disease in a left dominant system as detailed above. 3. Normal LV systolic function, ejection fraction 65%. 4. Three of three bypass graft patent. 5. Successful PCI with bare metal stent of the dominant left circumflex vessel from 95% to 0% with RAFAEL-III flow. 6. Recommend Plavix 600 mg p.o. load then 75 mg a day. I did no use Prasugrel as the patient has a remote history of requiring blood transfusion due to "hepatitis". 7. Also recommend aspirin 162 mg daily, Aggrastat drip per protocol. 8. Strongly recommend smoking cessation. 9. Continue Lipitor. 10. Continue Lopressor. 11. Add Altace 2.5 mg daily. 12. The patient will be told his Metformin/ for 48 hours postprocedure. Final ACT 287. MD BEATRIZ Ho/NANCIE /1:30 PM /7:47 AM
== END 2016-08-16 15:12 | disposition home or self-care (01) | DRG 249 ==
LOC: PHED 10:11 → PHEDA 13:12 → INTOOBSV 13:12 → HCIS 17:24 → OBSVTOIN 08-15 13:39
PROVIDERS: ADMIT Hospitalist; ATTEND Hospitalist
PROC: 02703DZ Dilation of Coronary Artery, One Artery with Intraluminal Device, Percutaneous Approach (ICD-10-PCS; principal; 2016-08-15)
PROC: 4A023N7 Measurement of Cardiac Sampling and Pressure, Left Heart, Percutaneous Approach (ICD-10-PCS; 2016-08-15)
PROC: B2151ZZ Fluoroscopy of Left Heart using Low Osmolar Contrast (ICD-10-PCS; 2016-08-15)
PROC: B2111ZZ Fluoroscopy of Multiple Coronary Arteries using Low Osmolar Contrast (ICD-10-PCS; 2016-08-15)
PROC: B2131ZZ Fluoroscopy of Multiple Coronary Artery Bypass Grafts using Low Osmolar Contrast (ICD-10-PCS; 2016-08-15)
PROC: B2181ZZ Fluoroscopy of Left Internal Mammary Bypass Graft using Low Osmolar Contrast (ICD-10-PCS; 2016-08-15)
DX: I21.4 Non-ST elevation (NSTEMI) myocardial infarction (principal); E11.40 Type 2 diabetes mellitus with diabetic neuropathy, unspecified; I47.1 Supraventricular tachycardia; I25.10 Atherosclerotic heart disease of native coronary artery without angina pectoris; Z95.1 Presence of aortocoronary bypass graft; I10 Essential (primary) hypertension; E03.9 Hypothyroidism, unspecified; E78.5 Hyperlipidemia, unspecified; F17.290 Nicotine dependence, other tobacco product, uncomplicated; Z79.82 Long term (current) use of aspirin; Z79.4 Long term (current) use of insulin
CPT/HCPCS: 71010; 80048; 80053; 80061; 82550; 82552; 82948; 83735; 83880; 84443; 84484; 85002; 85025; 85347; 85610; 85730; 92928; 93005; 93306; 93458; 96374; C1725; C1769; C1876; C1887; C1893; G0378; J0171; J0461; J1160; J1644; J1650; J1815; J3246; Q9967

== ENCOUNTER 2017-05-17 01:10 | Inpatient (IN) | payer OTHER, MEDICARE ==
[~2017-05-17] VITALS: Ht 172.7 cm; Wt 76.0 kg
[~2017-05-17 01:10] MED LIST changes: +AMLO5TAB2 PO; +ASPI81CH CHEW; +ATOR20TA15 PO; -AUGM875T PO; +CYAN1TAB24; -FLON0.053; +GABA300C5 PO; +LEVO25TA4 PO; -LISI-360 PO; -LOVA20TA OR; +MAGN400C2 PO; +METF-382 PO; -METF850T OR; -METO50TA OR; +METO50TA PO; +NITR1SUB3 SL; +NOVO7030P2 SQ; -NOVOLOGP2 SQ; -OMEP20TA OR; +OMEP20TA PO; +PLAV75TA29 PO; +RAMI2.5C PO; -SYNT25TA
[2017-05-17] MEDS ORDERED: IOHEXOL 350 MG/ML 10 ML VIAL (for RAD DIAG) IVCONTRAST ONE (01:11)
[2017-05-17 01:37] VITALS: BP 174/67; PULSE 77; RESP 12; TEMP 98.5; O2SAT 98
[2017-05-17] MEDS ORDERED: ROSU1TAB8 PO (01:52)
[2017-05-17] MEDS ORDERED: LISI40TA PO (01:52)
[2017-05-17] MEDS ORDERED: METF-382 PO (01:52)
[2017-05-17] MEDS ORDERED: CYAN1000P IM (01:52)
[2017-05-17 02:51] LABS: AUTOMATED NEUTROPHIL # 4.3 TH/MM3 (1.8-7.7); BASOPHIL % 0.5 % (0.0-2.0); EOSINOPHIL % 0.2 % (0.0-4.0); HEMATOCRIT 23.8 % (39.0-51.0); HEMO FLAGS DIFF FINAL; LYMPHOCYTE # 0.6 TH/MM3 (1.0-4.8); MEAN CELL VOLUME 89.8 FL (80.0-100.0); MEAN CORPUSCULAR HEMOGLOBIN 31.5 PG (27.0-34.0); MEAN CORPUSCULAR HGB CONC 35.1 % (32.0-36.0); MONO % 12.1 % (0.0-8.0); NEUT % 77.2 % (16.0-70.0); PLATELET COUNT 123 TH/MM3 (150-450); RED BLOOD COUNT 2.65 MIL/MM3 (4.50-5.90); RED CELL DISTRIBUTION WIDTH 14.2 % (11.6-17.2); WHITE BLOOD COUNT 5.6 TH/MM3 (4.0-11.0)
[2017-05-17 02:51] LABS: BLOOD, URINE NEG (NEG); COMMENT (UR) CULT NOT INDICATED; CULTURE IF INDICATED CULT NOT INDICATED; GLUCOSE,URINE NEG (NEG); KETONE, URINE NEG (NEG); NITRITE,URINE NEG (NEG); URINE COLOR YELLOW (YELLW/STRAW)
[2017-05-17 03:07] LABS: ALT (GPT) 39 U/L (12-78); ANION GAP 5 MEQ/L (5-15); AST (GOT) 95 U/L (15-37); BICARBONATE 28.2 MEQ/L (21.0-32.0); BLOOD UREA NITROGEN 14 MG/DL (7-18); CHLORIDE 104 MEQ/L (98-107); GLOMERULAR FILTRATION RATE 85 ML/MIN (>89); POTASSIUM 3.8 MEQ/L (3.5-5.1); SODIUM (NA) 137 MEQ/L (136-145)
[2017-05-17 03:09] LABS: ALKALINE PHOSPHATASE 107 U/L (45-117); TOTAL BILIRUBIN ADULT 2.5 MG/DL (0.2-1.0)
[2017-05-17] MEDS ORDERED: MORPHINE SULFATE 4 MG/ML INJ IV PUSH ONE (03:45)
[2017-05-17] MEDS ORDERED: SODIUM CHLORID 0.9% 500 ML INJ 500 ML IV ONE (03:45)
[2017-05-17] MEDS ORDERED: ONDANSETRON HCL 4 MG/2 ML VIAL IV PUSH ONE (03:45)
--- NOTE | 2017-05-17 04:50 | RADRPT ---
EXAM DATE/TIME: 05/17/2017 04:05 [facility] COMPARISON: No previous studies available for comparison. INDICATIONS : Abdomen pain after eating spicy food. Elevated lispase. IV CONTRAST: 95 cc Omnipaque 350 (iohexol) IV ORAL CONTRAST: No oral contrast ingested. RADIATION DOSE: 10.71 CTDIvol (mGy) MEDICAL HISTORY : Cardiovascular disease. Hypertension. Gastroesophageal reflux disease.Diabetes Hep C SURGICAL HISTORY : CABG Coronary artery stent. ENCOUNTER: Initial ACUITY: 1 day PAIN SCALE: 6/10 LOCATION: abdomen TECHNIQUE: Volumetric scanning of the abdomen and pelvis was performed. Using automated exposure control and ad justment of the mA and/or kV according to patient size, radiation dose was kept as low as reasonably achievable to obtain optimal diagnostic quality images. DICOM format image data is available electro nically for review and comparison. FINDINGS: LOWER LUNGS: The visualized lower lungs are clear. LIVER: Homogeneous density without lesion. There is no dilation of the biliary tree. No calcified gallston es. SPLEEN: Normal size without lesion. PANCREAS: Within normal limits. KIDNEYS: Normal in size and shape. There is no mass, stone or hydronephrosis. ADRENAL GLANDS: Within normal limits. VASCULAR: There is no aortic aneurysm. Extensive atherosclerotic changes at the aortic bifurcation extending in to the iliac vasculature. BOWEL/MESENTERY: Scattered diverticulosis without diverticulitis predominantly within the sigmoid colon. There is no free intraperitoneal air or fluid. ABDOMINAL WALL: Fat containing umbilical hernia. RETROPERITONEUM: There is no lymphadenopathy. There is some prominent stranding in the retroperitoneum just below the level of right kidney extending inferiorly just anterior to the psoas musculature. This measures 6.2 x 2.9 x 8.2 cm, this may be related to an area of hemorrhage. BLADDER: No wall thickening or mass. REPRODUCTIVE: Within normal limits. INGUINAL: There is no lymphadenopathy or hernia. MUSCULOSKELETAL: Within normal limits for patient age. CONCLUSION: 1. There is stranding and prominent density in the retroperitoneum likely representing an area of spo ntaneous hemorrhage measuring 6.2 x 2.9 x 8.2 cm. 2. The pancreas is unremarkable. 3. Diverticulosis without diverticulitis. 4. Fat containing umbilical hernia. hCamp Cortes MD on May 17, 2017 at 4:43 Board Certified Radiologist. This report was verified electronically.
--- NOTE | 2017-05-17 04:52 | PD ---
HPI Chief Complaint: Abdominal Pain Time Seen by Provider: 03:21 Travel History International Travel<30 days: No Contact w/Intl Traveler<30days: No Traveled to known affect area: No History of Present Illness HPI 71-year-old male came to the emergency room with history of sudden onset epigastric pain that started after he ate some spicy Gumbo. His is here with him and said that he had a small quantity but soon after he started getting severe pain when he doubled over. He was nauseous but didn't vomit. He asked his to call 911. Patient recently had bilateral femoral stent placement at the [facility] about a week ago. He was discharged home 4 days ago. Vital signs are stable. Patient says his pain is 6 out of 10 currently. No history of diarrhea. Patient feels somewhat bloated and distended. No current aggravating or relieving symptoms. Patient describes the pain as a severe squeezing kind of pain with no radiation. PFSH Past Medical History Narrative Medical List of his past medical, surgical, social and family history is reviewed from the nursing note. Hx Anticoagulant Therapy: Yes (asa 81mg) Arthritis: Yes Autoimmune Disease: No Blood Disorders: No Cardiac Catheterization: Yes (2 STENTS "IN LOWER ARTERIES") Cardiovascular Problems: Yes (htn on meds, 3 vessel bypass) High Cholesterol: Yes Chest Pain: Yes Coronary Artery Disease: Yes Diabetes: Yes Patient Takes Glucophage: Yes GERD: Yes Hepatitis: Yes (HX HEP C. TREATED 2001) Hypertension: Yes Thyroid Disease: Yes Tetanus Vaccination: Unknown Past Surgical History Cardiac Surgery: Yes (L CAROTID ENDARECTOMY) Coronary Artery Bypass Graft: Yes (3 VESSEL, TRIPLE BYPASS 2002) Eye Surgery: Yes (CATARACT SX) Tonsillectomy: Yes Other Surgery: Yes (CAROTID ARTERY SURGERY) Social History Alcohol Use: No Tobacco Use: No Substance Use: No Allergies-Medications (Allergen,Severity, Reaction): Coded Allergies: No Known Allergies (Unverified , 08/14/16) Comments No known drug allergies. Reported Meds & Prescriptions Reported Meds & Active Scripts Active Plavix (Clopidogrel Bisulfate) 75 Mg Tab 75 Mg PO DAILY Reported Rosuvastatin (Rosuvastatin Calcium) 20 Mg Tab 20 Mg PO HS Lisinopril 40 Mg Tab 40 Mg PO DAILY Metformin ER (Metformin HCl) 1,000 Mg Porsha 1,000 Mg PO DAILY With evening meal Cyanocobalamin Inj (Cyanocobalamin) 1,000 Mcg/Ml Inj 1,000 Mcg IM Q30D Nitroglycerin SL (Nitroglycerin) 0.4 Mg Subl 0.4 Mg SL DIRECTED PRN ONE TABLET UNDER THE TONGUE NEEDED FOR CHEST PAIN, MAY REPEAT EVERY FIVE MINUTES FOR A TOTAL OF 3 DOSES OR CALL 911 IF NO RELIEF Levothyroxine (Levothyroxine Sodium) 25 Mcg Tab 25 Mcg PO DAILY Gabapentin 300 Mg Cap 300 Mg PO BID Omeprazole 20 Mg Tab 20 Mg PO DAILY Amlodipine (Amlodipine Besylate) 5 Mg Tab 5 Mg PO DAILY Metoprolol Tartrate 50 Mg Tab 50 Mg PO BID Aspirin 81 Mg Chew 81 Mg CHEW DAILY Magnesium Oxide 400 Mg Cap 1 Cap PO DAILY Novolin 70-30 Inj (Insulin Human Isoph/Insulin Regular) 1,000 Unit/10 Ml Vial 50 Units SQ HS Novolin 70-30 Inj (Insulin Human Isoph/Insulin Regular) 1,000 Unit/10 Ml Vial 52 Units SQ DAILY Narrative Medication List of his home medications reviewed from the nursing note. Review of Systems Except as stated in HPI: all other systems reviewed are Neg Gastrointestinal: Positive: Nausea, Abdominal Pain Physical Exam Narrative GENERAL: Awake, alert, moderate distress SKIN: Focused skin assessment warm/dry. HEAD: Atraumatic. Normocephalic. EYES: Pupils equal and round. No scleral icterus. No injection or drainage. ENT: No nasal bleeding or discharge. Mucous membranes pink and moist. NECK: Trachea midline. No JVD. CARDIOVASCULAR: Regular rate and rhythm. No murmur appreciated. RESPIRATORY: No accessory muscle use. Clear to auscultation. Breath sounds equal bilaterally. GASTROINTESTINAL: Abdomen soft, non-tender, distended, umbilicus hernia which is reducible normal bowel sounds. Hepatic and splenic margins not palpable. MUSCULOSKELETAL: No obvious deformities. No clubbing. No cyanosis. No edema. NEUROLOGICAL: Awake and alert. No obvious cranial nerve deficits. Motor grossly within normal limits. Normal speech. PSYCHIATRIC: Appropriate mood and affect; insight and judgment normal. Data Data Last Documented VS Vital Signs Date Time Temp Pulse Resp B/P (MAP) Pulse Ox O2 Delivery O2 Flow Rate FiO2 05/17/17 07:19 67 12 177/72 (107) 97 Room Air 05/17/17 01:37 98.5 Orders Orders Complete Blood Count With Diff (05/17/17 02:33) Comprehensive Metabolic Panel (05/17/17 02:33) Urinalysis - C+S If Indicated (05/17/17 02:33) Iv Access Insert/Monitor (05/17/17 02:33) Oxygen Administration (05/17/17 02:33) Oximetry (05/17/17 02:33) Lipase (05/17/17 02:33) Morphine Inj (Morphine Inj) (05/17/17 03:45) Ondansetron Inj (Zofran Inj) (05/17/17 03:45) Sodium Chlorid 0.9% 500 Ml Inj (Ns 500 M (05/17/17 03:45) Ct Abd/Pel W Iv Contrast(Rout) (05/17/17 ) Iohexol 350 Inj (Omnipaque 350 Inj) (05/17/17 01:11) Troponin I (05/17/17 05:09) Prothrombin Time / Inr (Pt) (05/17/17 05:09) Type And Screen (05/17/17 05:09) Electrocardiogram (05/17/17 ) Hemoglobin (Hgb) (05/17/17 07:08) Labs Laboratory Tests Test 05/17/17 02:35 05/17/17 02:45 05/17/17 05:28 White Blood Count 5.6 TH/MM3 Red Blood Count 2.65 MIL/MM3 Hemoglobin 8.4 GM/DL Hematocrit 23.8 % Mean Corpuscular Volume 89.8 FL Mean Corpuscular Hemoglobin 31.5 PG Mean Corpuscular Hemoglobin Concent 35.1 % Red Cell Distribution Width 14.2 % Platelet Count 123 TH/MM3 Mean Platelet Volume 9.0 FL Neutrophils (%) (Auto) 77.2 % Lymphocytes (%) (Auto) 10.0 % Monocytes (%) (Auto) 12.1 % Eosinophils (%) (Auto) 0.2 % Basophils (%) (Auto) 0.5 % Neutrophils # (Auto) 4.3 TH/MM3 Lymphocytes # (Auto) 0.6 TH/MM3 Monocytes # (Auto) 0.7 TH/MM3 Eosinophils # (Auto) 0.0 TH/MM3 Basophils # (Auto) 0.0 TH/MM3 CBC Comment DIFF FINAL Differential Comment Blood Urea Nitrogen 14 MG/DL Creatinine 0.88 MG/DL Random Glucose 191 MG/DL Total Protein 6.7 GM/DL Albumin 3.1 GM/DL Calcium Level 8.3 MG/DL Alkaline Phosphatase 107 U/L Aspartate Amino Transf (AST/SGOT) 95 U/L Alanine Aminotransferase (ALT/SGPT) 39 U/L Total Bilirubin 2.5 MG/DL Sodium Level 137 MEQ/L Potassium Level 3.8 MEQ/L Chloride Level 104 MEQ/L Carbon Dioxide Level 28.2 MEQ/L Anion Gap 5 MEQ/L Estimat Glomerular Filtration Rate 85 ML/MIN Troponin I LESS THAN 0.02 NG/ML Lipase 1493 U/L Urine Color YELLOW Urine Turbidity CLEAR Urine pH 6.0 Urine Specific [place] 1.017 Urine Protein 30 mg/dL Urine Glucose (UA) NEG mg/dL Urine Ketones NEG mg/dL Urine Occult Blood NEG Urine Nitrite NEG Urine Bilirubin NEG Urine Urobilinogen 2.0 MG/DL Urine Leukocyte Esterase NEG Urine RBC 3 /hpf Urine WBC LESS THAN 1 /hpf Microscopic Urinalysis Comment CULT NOT INDICATED Prothrombin Time 10.8 SEC Prothromb Time International Ratio 1.0 RATIO MDM Medical Decision Making Medical Screen Exam Complete: Yes Emergency Medical Condition: Yes Medical Record Reviewed: Yes Interpretation(s) Twelve-lead EKG was reviewed by me. Normal sinus rhythm, normal axis, right bundle branch block. Heart rate of 63 bpm. Differential Diagnosis Acute pancreatitis, acute cholecystitis, aortic dissection, ACS Narrative Course 4:51 AM blood test results of back and lipase is elevated. I have ordered pain medication for the patient. Awaiting for the CAT scan of the aorta resulted. Patient had anemia and the hemoglobin was 8.4 before he left CVA. This makes the hemoglobin stable at this point. 5:[address] scan report is back and shows a 6.5 x 8.5 x 2.5 cm hemorrhage in the retroperitoneum. The pancreas is look unremarkable. I went and informed the patient about the CAT scan report. I'm waiting for the last CAT scan report from [place] that has been called and they've been asked to fax the report. The and the patient said that they did mention about the bleeding when he was there and they were checking on it for 2 days after the procedure. After receiving the pain medicine patient says his pain is much better. 7:30 AM [facility]. Case has been signed over to the oncoming ER physician. Patient continues to be hemodynamically stable. Procedures EKG Prior to Arrival: Xenia Albarado MD May 17, 2017 04:52
[2017-05-17 05:14] VITALS: BP 163/72; PULSE 76; RESP 18; O2SAT 98
[2017-05-17 06:13] LABS: PROTHROMBIN TIME - PATIENT 10.8 SEC (9.8-11.6)
[2017-05-17 07:19] VITALS: BP 177/72; PULSE 67; RESP 12; O2SAT 97
--- NOTE | 2017-05-17 11:08 | PD ---
Physical Exam Narrative GENERAL: Well-nourished, well-developed patient. SKIN: Warm and dry. HEAD: Normocephalic and atraumatic. EYES: No injection or drainage. ENT: No nasal drainage noted. NECK: Supple, trachea midline. CARDIOVASCULAR: Regular rate and rhythm RESPIRATORY: No increased effort. No accessory muscle use. GASTROINTESTINAL: Abdomen soft, mild tenderness in epigastric area, nondistended. NEUROLOGICAL: Awake and alert. Moves all extremities. Normal speech. Data Data Last Documented VS Vital Signs Date Time Temp Pulse Resp B/P (MAP) Pulse Ox O2 Delivery O2 Flow Rate FiO2 05/17/17 07:19 67 12 177/72 (107) 97 Room Air 05/17/17 01:37 98.5 Orders Orders Complete Blood Count With Diff (05/17/17 02:33) Comprehensive Metabolic Panel (05/17/17 02:33) Urinalysis - C+S If Indicated (05/17/17 02:33) Iv Access Insert/Monitor (05/17/17 02:33) Oxygen Administration (05/17/17 02:33) Oximetry (05/17/17 02:33) Lipase (05/17/17 02:33) Morphine Inj (Morphine Inj) (05/17/17 03:45) Ondansetron Inj (Zofran Inj) (05/17/17 03:45) Sodium Chlorid 0.9% 500 Ml Inj (Ns 500 M (05/17/17 03:45) Ct Abd/Pel W Iv Contrast(Rout) (05/17/17 ) Iohexol 350 Inj (Omnipaque 350 Inj) (05/17/17 01:11) Troponin I (05/17/17 05:09) Prothrombin Time / Inr (Pt) (05/17/17 05:09) Type And Screen (05/17/17 05:09) Electrocardiogram (05/17/17 ) Hemoglobin (Hgb) (05/17/17 07:08) Admit Order (Ed Use Only) (05/17/17 10:32) Consult Vascular Surgery (05/17/17 ) Admit To Inpatient (05/17/17 ) Inpatient Certification (05/17/17 ) Diet Npo (05/17/17 Lunch) Vital Signs (Adult) MAICOL.Q4H (05/17/17 10:32) Activity Oob Ad Comfort (05/17/17 10:32) Dext 5%-Nacl 0.9% 1000 Ml Inj (D5w-Ns 10 (05/17/17 10:45) Labs Laboratory Tests Test 05/17/17 02:35 05/17/17 02:45 05/17/17 05:28 05/17/17 07:18 White Blood Count 5.6 TH/MM3 Red Blood Count 2.65 MIL/MM3 Hemoglobin 8.4 GM/DL 8.3 GM/DL Hematocrit 23.8 % Mean Corpuscular Volume 89.8 FL Mean Corpuscular Hemoglobin 31.5 PG Mean Corpuscular Hemoglobin Concent 35.1 % Red Cell Distribution Width 14.2 % Platelet Count 123 TH/MM3 Mean Platelet Volume 9.0 FL Neutrophils (%) (Auto) 77.2 % Lymphocytes (%) (Auto) 10.0 % Monocytes (%) (Auto) 12.1 % Eosinophils (%) (Auto) 0.2 % Basophils (%) (Auto) 0.5 % Neutrophils # (Auto) 4.3 TH/MM3 Lymphocytes # (Auto) 0.6 TH/MM3 Monocytes # (Auto) 0.7 TH/MM3 Eosinophils # (Auto) 0.0 TH/MM3 Basophils # (Auto) 0.0 TH/MM3 CBC Comment DIFF FINAL Differential Comment Blood Urea Nitrogen 14 MG/DL Creatinine 0.88 MG/DL Random Glucose 191 MG/DL Total Protein 6.7 GM/DL Albumin 3.1 GM/DL Calcium Level 8.3 MG/DL Alkaline Phosphatase 107 U/L Aspartate Amino Transf (AST/SGOT) 95 U/L Alanine Aminotransferase (ALT/SGPT) 39 U/L Total Bilirubin 2.5 MG/DL Sodium Level 137 MEQ/L Potassium Level 3.8 MEQ/L Chloride Level 104 MEQ/L Carbon Dioxide Level 28.2 MEQ/L Anion Gap 5 MEQ/L Estimat Glomerular Filtration Rate 85 ML/MIN Troponin I LESS THAN 0.02 NG/ML Lipase 1493 U/L Urine Color YELLOW Urine Turbidity CLEAR Urine pH 6.0 Urine Specific [place] 1.017 Urine Protein 30 mg/dL Urine Glucose (UA) NEG mg/dL Urine Ketones NEG mg/dL Urine Occult Blood NEG Urine Nitrite NEG Urine Bilirubin NEG Urine Urobilinogen 2.0 MG/DL Urine Leukocyte Esterase NEG Urine RBC 3 /hpf Urine WBC LESS THAN 1 /hpf Microscopic Urinalysis Comment CULT NOT INDICATED Prothrombin Time 10.8 SEC Prothromb Time International Ratio 1.0 [facility] Supervised Visit with JIMMY: No Interpretation(s) Last 24 hours Impressions Abdomen/Pelvis CT 05/17/17 0000 Signed Impressions: Service Date/Time: Wednesday, May 17, 2017 04:05 - CONCLUSION: 1. There is stranding and prominent density in the retroperitoneum likely representing an area of spontaneous hemorrhage measuring 6.2 x 2.9 x 8.2 cm. 2. The pancreas is unremarkable. 3. Diverticulosis without diverticulitis. 4. Fat containing umbilical hernia. Champ Cortes MD Narrative Course Signed over to me to await [facility] records and reevaluate. [facility] not [facility] size of retro[facility] hematoma while I was waiting for records I repeated hemoglobin and this was stable. I will discuss with vascular surgery Patient updated and agrees to admission here Physician Communication Physician Communication Dr. Tafoya states his nurse practitioner will come see patient Mid-level with Dr. Tafoya states after discussing case with him to check hemoglobin again in 6 hours, after talking with their radiology department retroperitoneal bleed was 10 x 12 x 3 so area has decreased in size, if repeat hemoglobin is okay he can follow-up outpatient Dr. barraza agrees to admission Diagnosis Primary Impression: Pancreatitis Qualified Codes: K85.90 - Acute pancreatitis without necrosis or infection, unspecified Admitting Information Admitting Physician Requests: Admit Apolonia Daniel MD May 17, 2017 11:08
[2017-05-17] MEDS: DEXT 5%-NACL 0.9% 1000 ML INJ 1,000 ML IV SCH ×2 (11:09→20:37)
[2017-05-17 11:11] VITALS: BP 173/72; PULSE 90; RESP 20; O2SAT 96
--- NOTE | 2017-05-17 11:48 | PD.VS.CON ---
History of Present Illness Chief Complaint: S/P Bilat Iliac stenting w/ a previous hx of retroperitoneal bleed several days ago Consult Requested by: Dr. Daniel History of Present Illness Mr. Underwood is a 71/M patient who presented to the ED c/o sudden onset epigastric pain post eating "spicy gumbo". Pt s/p Bilateral Iliac stenting with a known stable RIGHT retroperitoneal bleed Pt was d/c two days ago, reported improved RLQ abdominal pain since d/c Pt denies dark stools, abdominal/back pain, CP and SOB (Sienna Cruz) Past/Family/Social History Past Medical History Arthritis High Cholesterol Coronary Artery Disease Diabetes GERD Hepatitis C Hypertension Thyroid Disease Past Surgical History L CAROTID ENDARTERECTOMY Coronary Artery Bypass Graft: 3 VESSEL, TRIPLE BYPASS 2002 CATARACT SX Tonsillectomy CAROTID ARTERY SURGERY Social History Non Smoker Denies alcohol Denies Illicit drug use Lives with his spouse 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 (Sinena Cruz) Home Medications Active Scripts Clopidogrel (Plavix) 75 Mg Tab, 75 MG PO DAILY for Regulate Heart Beat, #30 TAB 7 Refills Prov:Champ [place] MD 08/16/16 Reported Medications Rosuvastatin (Rosuvastatin) 20 Mg Tab, 20 MG PO HS for Cholesterol Management, # 30 TAB 0 Refills 05/17/17 Lisinopril (Lisinopril) 40 Mg Tab, 40 MG PO DAILY for Blood Pressure Management , #30 TAB 0 Refills 05/17/17 Metformin ER (Metformin ER) 1,000 Mg Porsha, 1000 MG PO DAILY for Blood Sugar Management, #30 TAB 0 Refills With evening meal 05/17/17 Cyanocobalamin Inj (Cyanocobalamin Inj) 1,000 Mcg/Ml Inj, 1000 MCG IM Q30D, #1 VIAL 0 Refills 05/17/17 Nitroglycerin SL (Nitroglycerin SL) 0.4 Mg Subl, 0.4 MG SL DIRECTED Y for CHEST PAIN, #100 TAB.SL 0 Refills ONE TABLET UNDER THE TONGUE NEEDED FOR CHEST PAIN, MAY REPEAT EVERY FIVE MINUTES FOR A TOTAL OF 3 DOSES OR CALL 911 IF NO RELIEF 08/14/16 Levothyroxine (Levothyroxine) 25 Mcg Tab, 25 MCG PO DAILY for Thyroid, #30 TAB 0 Refills 08/14/16 Gabapentin (Gabapentin) 300 Mg Cap, 300 MG PO BID, #60 CAP 0 Refills 08/14/16 Omeprazole (Omeprazole) 20 Mg Tab, 20 MG PO DAILY, #30 TAB 0 Refills 08/14/16 Amlodipine (Amlodipine) 5 Mg Tab, 5 MG PO DAILY for Blood Pressure Management, # 30 TAB 0 Refills 08/14/16 Metoprolol Tartrate (Metoprolol Tartrate) 50 Mg Tab, 50 MG PO BID, #60 TAB 0 Refills 08/14/16 Aspirin (Aspirin) 81 Mg Chew, 81 MG CHEW DAILY, TAB 0 Refills 08/14/16 Magnesium Oxide (Magnesium Oxide) 400 Mg Cap, 1 CAP PO DAILY 08/14/16 Insulin Human Isophane-Regular 70-30 Inj (Novolin 70-30 Inj) 1,000 Unit/10 Ml Vial, 50 UNITS SQ HS for Blood Sugar Management, ML 0 Refills 08/14/16 Insulin Human Isophane-Regular 70-30 Inj (Novolin 70-30 Inj) 1,000 Unit/10 Ml Vial, 52 UNITS SQ DAILY for Blood Sugar Management, ML 0 Refills 08/14/16 Discontinued Reported Medications Metformin ER (Metformin ER) 1,000 Mg Porsha, 1000 MG PO BID for Blood Sugar Management, #30 TAB 0 Refills With evening meal 08/14/16 Atorvastatin (Atorvastatin) 20 Mg Tab, 20 MG PO HS for Cholesterol Management, # 30 TAB 0 Refills 08/14/16 Cyanocobalamin (B12) 1,000 Mcg Tab 08/14/16 Discontinued Scripts Ramipril (Ramipril) 2.5 Mg Cap, 2.5 MG PO DAILY for Blood Pressure Management, # 30 CAP 7 Refills Prov:Champ Kingston MD 08/16/16 Coded Allergies: No Known Allergies (Unverified , 08/14/16) Physical Exam Vitals/I&O Date Time Temp Pulse Resp B/P (MAP) Pulse Ox O2 Delivery O2 Flow Rate FiO2 05/17/17 11:11 90 20 173/72 (105) 96 Room Air 05/17/17 07:19 67 12 177/72 (107) 97 Room Air 05/17/17 05:14 76 18 163/72 (102) 98 Room Air 05/17/17 01:37 98.5 77 12 174/67 (102) 98 05/17/17 05/17/17 05/17/17 07:00 15:00 23:00 Intake Total 500 ml Output Total 300 ml Balance 500 ml -300 ml Neuro: A&OX3 GCS15 Pt w/o neurological deficits Neck: NO JVD distention Heart: NSR on CM +S1,S2 Lungs: CTA Abdomen: Slightly distended "per pt" BS + Last BM yesterday "normal/green in color" Abdomen non tender Umbilical hernia present, hx of Pt c/o epigastric pain early am post eating "spicy food" - relieved w/ antiemetic/morphine Pt reported improved RLQ ab pain since D/C a few days ago -area non tender Extremities: UE/LE warm with motor intact (Sienna Cruz) Laboratory Tests Test 05/17/17 02:35 05/17/17 02:45 05/17/17 05:28 05/17/17 07:18 White Blood Count 5.6 Red Blood Count 2.65 Hemoglobin 8.4 8.3 Hematocrit 23.8 Mean Corpuscular Volume 89.8 Mean Corpuscular Hemoglobin 31.5 Mean Corpuscular Hemoglobin Concent 35.1 Red Cell Distribution Width 14.2 Platelet Count 123 Mean Platelet Volume 9.0 Neutrophils (%) (Auto) 77.2 Lymphocytes (%) (Auto) 10.0 Monocytes (%) (Auto) 12.1 Eosinophils (%) (Auto) 0.2 Basophils (%) (Auto) 0.5 Neutrophils # (Auto) 4.3 Lymphocytes # (Auto) 0.6 Monocytes # (Auto) 0.7 Eosinophils # (Auto) 0.0 Basophils # (Auto) 0.0 CBC Comment DIFF FINAL Differential Comment Blood Urea Nitrogen 14 Creatinine 0.88 Random Glucose 191 Total Protein 6.7 Albumin 3.1 Calcium Level 8.3 Alkaline Phosphatase 107 Aspartate Amino Transf (AST/SGOT) 95 Alanine Aminotransferase (ALT/SGPT) 39 Total Bilirubin 2.5 Sodium Level 137 Potassium Level 3.8 Chloride Level 104 Carbon Dioxide Level 28.2 Anion Gap 5 Estimat Glomerular Filtration Rate 85 Troponin I LESS THAN 0.02 Lipase 1493 Urine Color YELLOW Urine Turbidity CLEAR Urine pH 6.0 Urine Specific [place] 1.017 Urine Protein 30 Urine Glucose (UA) NEG Urine Ketones NEG Urine Occult Blood NEG Urine Nitrite NEG Urine Bilirubin NEG Urine Urobilinogen 2.0 Urine Leukocyte Esterase NEG Urine RBC 3 Urine WBC LESS THAN 1 Microscopic Urinalysis Comment CULT NOT INDICATED Prothrombin Time 10.8 Prothromb Time International Ratio 1.0 Last 48 hours Impressions Abdomen/Pelvis CT 05/17/17 0000 Signed Impressions: Service Date/Time: Wednesday, May 17, 2017 04:05 - CONCLUSION: 1. There is stranding and prominent density in the retroperitoneum likely representing an area of spontaneous hemorrhage measuring 6.2 x 2.9 x 8.2 cm. 2. The pancreas is unremarkable. 3. Diverticulosis without diverticulitis. 4. Fat containing umbilical hernia. Champ Cortes MD (Sienna Cruz) Assessment and Plan Assessment: (1) Status post insertion of iliac artery stent (2) Retroperitoneal bleed (3) Abdominal pain Plan Reviewed CT imaging/labs w/ Dr. Tafoya Pt with stable and improved retroperitoneal bleed Spoke w/ IR ([place]) for quick review of past measurement of RPB that was done on 05/11- RPB measured then 10 X 3.5 (thick) x 12 (long) CT Exam done today measured 6.2 X 2.9 X 8.2 Pt with improved RLQ/Epigastric abdominal pain HCT stable Plan Repeat HBG 6H from last draw If remains stable pt may f/u with his vascular surgeon D/w Dr. Carrizales Continue to monitor Sienna CHANG [facility]/[place] [phone] (Sienna Cruz) Plan Pt with postprandial pain and chemical pancreatitis but on CT pancreas looks ok. Called bc of RP hematoma. Pt had iliac stents for claudication placed elsewhere and he describes that the procedure was difficult. On CT he was found to have RP hematoma that is small and relatively unimpressive. Hgb stable 0200 to 0800. Abdomen benign. Palpable femoral pulses. Likely nothing needs to be done with small RP hematoma. Will recheck one more Hct and then likely can f/u with IR who did iliac stents. Kike Tafoya MD [facility] [employer] weight reducing technician [facility] - [facility] V[facility] at [facility] [phone] (Kike Tafoya MD) Problem Qualifiers (1) Abdominal pain: Qualified Codes: R10.13 - Epigastric pain Sienna Cruz May 17, 2017 11:48 Kike Tafoya MD May 17, 2017 13:44
[2017-05-17 12:00] VITALS: BP 174/77; PULSE 92; RESP 20; TEMP 100.4; O2SAT 97
--- NOTE | 2017-05-17 14:52 | HHI.HP ---
[facility] Service [facility] Primary Care Physician [facility] Admission Diagnosis pancreatitis, retroperitoneal bleed Diagnoses: Chief Complaint: epiGastric pain Travel History International Travel<30 Days: No Contact w/Intl Traveler <30 Da: No Traveled to Known Affected Are: No History of Present Illness Patient is a 71-year-old male who just had a recent bilateral iliac stent placed last May 11 at the [facility], procedure complicated with retroperitoneal bilateral bleeding. History of CAD status post CABG, history of PCI placed on January 2017, type 2 diabetes, insulin- requiring who presented with epigastric pain that started last evening across the abdomen 3 hours after eating dinner. Overnight patient with severe epigastric discomfort associated with nausea however no vomiting. Denies any diarrhea melena or hematochezia. Persistence of abdominal pain prompted consult to ER where on evaluation was noted to have an elevated lipase. Patient admitted for further evaluation and management. No Alcohol use states this is the first episode of pancreatitis. As mentioned patient just had a recent bilateral iliac stent placed on May 11 he was discharged on May 14 and has been getting up walking around fairly. A CT of the abdomen was done today to follow-up on does retroperitoneal bleed and showed size had decreased from 11-9.6 today. Patient was promptly seen by vascular surgery for evaluation of this. Review of Systems Constitutional: DENIES: Diaphoretic episodes, Fatigue, Fever, Weight gain, Weight loss, Chills, Dizziness, Change in appetite, Night Sweats Endocrine: DENIES: Heat/cold intolerance, Polydipsia, Polyuria, Polyphagia Eyes: DENIES: Blurred vision, Diplopia, Eye inflammation, Eye pain, Vision loss , Photosensitivity, Double Vision Ears, nose, mouth, throat: DENIES: Tinnitus, Hearing loss, Vertigo, Nasal discharge, Oral lesions, Throat pain, Hoarseness, Ear Pain, Running Nose, Epistaxis, Sinus Pain, Toothache, Odynophagia Respiratory: DENIES: Apneas, Cough, Snoring, Wheezing, Hemoptysis, Sputum production, Shortness of breath Cardiovascular: DENIES: Chest pain, Palpitations, Syncope, Dyspnea on Exertion , PND, Lower Extremity Edema, Orthopnea, Claudication Gastrointestinal: DENIES: Abdominal pain, Black stools, Bloody stools, Constipation, Diarrhea, Nausea, Vomiting, Difficulty Swallowing, Anorexia Genitourinary: DENIES: Sexual dysfunction, Urinary frequency, Urinary incontinence, Urgency, Hematuria, Dysuria, Nocturia, Penile Discharge, Testicular Pain, Testicular Swelling Musculoskeletal: DENIES: Joint pain, Muscle aches, Stiffness, Joint Swelling, Back pain, Neck pain Integumentary: DENIES: Abnormal pigmentation, Nail changes, Pruritus, Rash Hematologic/lymphatic: DENIES: Bruising, Lymphadenopathy Immunologic/allergic: DENIES: Eczema, Urticaria Neurologic: DENIES: Abnormal gait, Headache, Localized weakness, Paresthesias, Seizures, Speech Problems, Tremor, Poor Balance Psychiatric: DENIES: Anxiety, Confusion, Mood changes, Depression, Hallucinations, Agitation, Suicidal Ideation, Homicidal Ideation, Delusions Past Family Social History Past Medical History Diabetes type 2 History of CAD status PCI of the left circumflex in July 2016 Bilateral iliac stenting recently 05/11/17 Hypertension Hyperlipidemia Diabetes type 2 insulin-requiring Hypothyroidism B-12 deficiency Past Surgical History Left carotid endarterectomy in 2005 CABG in 2002 Bilateral cataract surgery 5 years ago History of tonsillectomy Allergies: Coded Allergies: No Known Allergies (Unverified , 08/14/16) Family History Noncontributory Social History Very occasional cigar once a year Denies any alcohol use Physical Exam Vital Signs Vital Signs Date Time Temp Pulse Resp B/P (MAP) Pulse Ox O2 Delivery O2 Flow Rate FiO2 05/17/17 12:22 05/17/17 12:00 100.4 92 20 174/77 (109) 97 05/17/17 11:11 90 20 173/72 (105) 96 Room Air 05/17/17 07:19 67 12 177/72 (107) 97 Room Air 05/17/17 05:14 76 18 163/72 (102) 98 Room Air 05/17/17 01:37 98.5 77 12 174/67 (102) 98 Physical Exam GENERAL: This is a well-nourished, well-developed patient, in no apparent distress. SKIN: No rashes, ecchymoses or lesions. Cool and dry. HEAD: Atraumatic. Normocephalic. No temporal or scalp tenderness. EYES: Pupils equal round and reactive. Extraocular motions intact. No scleral icterus. No injection or drainage. ENT: Nose without bleeding, Throat without erythema, tonsillar hypertrophy or exudate. Uvula midline. Airway patent. NECK: Trachea midline. No JVD or lymphadenopathy. Supple, nontender, no meningeal signs. CARDIOVASCULAR: Regular rate and rhythm without murmurs, gallops, or rubs. RESPIRATORY: Clear to auscultation. Breath sounds equal bilaterally. No wheezes , rales, or rhonchi. GASTROINTESTINAL: Abdomen soft, - mild tenderness epigastric area. No guarding. +umbilical hernia Bilateral groin area with superficial ecchymosis MUSCULOSKELETAL: Extremities without clubbing, cyanosis, or edema. No joint tenderness, effusion, or edema noted. No calf tenderness. Negative Homans sign bilaterally. NEUROLOGICAL: Awake and alert. Cranial nerves II through XII intact. Motor and sensory grossly within normal limits. Five out of 5 muscle strength in all muscle groups. Normal speech. Laboratory Laboratory Tests Test 05/17/17 02:35 05/17/17 02:45 05/17/17 05:28 05/17/17 07:18 White Blood Count 5.6 Red Blood Count 2.65 Hemoglobin 8.4 8.3 Hematocrit 23.8 Mean Corpuscular Volume 89.8 Mean Corpuscular Hemoglobin 31.5 Mean Corpuscular Hemoglobin Concent 35.1 Red Cell Distribution Width 14.2 Platelet Count 123 Mean Platelet Volume 9.0 Neutrophils (%) (Auto) 77.2 Lymphocytes (%) (Auto) 10.0 Monocytes (%) (Auto) 12.1 Eosinophils (%) (Auto) 0.2 Basophils (%) (Auto) 0.5 Neutrophils # (Auto) 4.3 Lymphocytes # (Auto) 0.6 Monocytes # (Auto) 0.7 Eosinophils # (Auto) 0.0 Basophils # (Auto) 0.0 CBC Comment DIFF FINAL Differential Comment Blood Urea Nitrogen 14 Creatinine 0.88 Random Glucose 191 Total Protein 6.7 Albumin 3.1 Calcium Level 8.3 Alkaline Phosphatase 107 Aspartate Amino Transf (AST/SGOT) 95 Alanine Aminotransferase (ALT/SGPT) 39 Total Bilirubin 2.5 Sodium Level 137 Potassium Level 3.8 Chloride Level 104 Carbon Dioxide Level 28.2 Anion Gap 5 Estimat Glomerular Filtration Rate 85 Troponin I LESS THAN 0.02 Lipase 1493 Urine Color YELLOW Urine Turbidity CLEAR Urine pH 6.0 Urine Specific Goldsmith 1.017 Urine Protein 30 Urine Glucose (UA) NEG Urine Ketones NEG Urine Occult Blood NEG Urine Nitrite NEG Urine Bilirubin NEG Urine Urobilinogen 2.0 Urine Leukocyte Esterase NEG Urine RBC 3 Urine WBC LESS THAN 1 Microscopic Urinalysis Comment CULT NOT INDICATED Prothrombin Time 10.8 Prothromb Time International Ratio 1.0 Result Diagram: 05/17/17 0718 05/17/17 0235 Imaging Last Impressions Abdomen/Pelvis CT 05/17/17 0000 Signed Impressions: Service Date/Time: Wednesday, May 17, 2017 04:05 - CONCLUSION: 1. There is stranding and prominent density in the retroperitoneum likely representing an area of spontaneous hemorrhage measuring 6.2 x 2.9 x 8.2 cm. 2. The pancreas is unremarkable. 3. Diverticulosis without diverticulitis. 4. Fat containing umbilical hernia. MD Amari Diego VTE Risk Assessment Amari VTE Risk Assessment: Mod/High Risk (score >= 2) VTE Pharm Contraindication: retroperitoneal bleed Caprini Risk Assessment Model Point Value = 1 Point Value = 2 Point Value = 3 Point Value = 5 Age 41-60 Minor surgery BMI > 25 kg/m2 Swollen legs Varicose veins or History of unexplained or recurrent spontaneous Oral contraceptives or hormone replacement Sepsis (< 1 month) Serious lung disease, including pneumonia (< 1 month) Abnormal pulmonary function Acute myocardial infarction Congestive heart failure (< 1 month) History of inflammatory bowel disease Medical patient at bed rest Age 61-74 Arthroscopic surgery Major open surgery (> 45 min) Laparoscopic surgery (> 45 min) Malignancy Confined to bed (> 72 hours) Immobilizing plaster cast Central venous access Age >= 75 History of VTE Family history of VTE Factor V Leiden Prothrombin 19302A Lupus anticoagulant Anticardiolipin antibodies Elevated serum homocysteine Heparin-induced thrombocytopenia Other congenital or acquired thrombophilia Stroke (< 1 month) Elective arthroplasty Hip, pelvis, or leg fracture Acute spinal cord injury (< 1 month) Prophylaxis Regimen Total Risk Factor Score Risk Level Prophylaxis Regimen 0-1 Low Early ambulation 2 Moderate Order ONE of the following: *Sequential Compression Device (SCD) *Heparin 5000 units SQ BID 3-4 Higher Order ONE of the following medications: *Heparin 5000 units SQ TID *Enoxaparin/Lovenox 40 mg SQ daily (WT < 150 kg, CrCl > 30 mL/min) *Enoxaparin/Lovenox 30 mg SQ daily (WT < 150 kg, CrCl > 10-29 mL/min) *Enoxaparin/Lovenox 30 mg SQ BID (WT < 150 kg, CrCl > 30 mL/min) AND/OR *Sequential Compression Device (SCD) 5 or more Highest Order ONE of the following medications: *Heparin 5000 units SQ TID (Preferred with Epidurals) *Enoxaparin/Lovenox 40 mg SQ daily (WT < 150 kg, CrCl > 30 mL/min) *Enoxaparin/Lovenox 30 mg SQ daily (WT < 150 kg, CrCl > 10-29 mL/min) *Enoxaparin/Lovenox 30 mg SQ BID (WT < 150 kg, CrCl > 30 mL/min) AND *Sequential Compression Device (SCD) Assessment and Plan Assessment and Plan Patient is a 71-year-old male presenting with epigastric pain and nausea Acute pancreatitis first episode. Nothing by mouth except meds with sips of water. Patient denies any chronic alcohol use we'll check a triglyceride level. History of status post iliac bilateral iliac stenting complicated by retroperitoneal hemorrhage. CT done of the pelvis and abdomen today shows size off hemorrhage smaller with previous CT that was obtained from [place] shows smaller in size. by GS pancreas appears normal. no comment on the GB Will continue on Plavix and aspirin History of coronary artery disease status post PCI of the left circumflex. Hypertension. Will continue on amlodipine 5 mg daily, Lopressor 50 mg twice a day, lisinopril 40 mg daily, statins, Plavix aspirin. History of diabetes type 2 insulin-requiring plus on metformin. We'll hold metformin with recent IV contrast study. Hold 70/30 home insulin. since patient is nothing by mouth. Cover with sliding scale History hypothyroidism continue Synthroid 25 g daily Anemia on labs. Per patient he was discharged on iron preparation . We'll continue on iron 325 mg po daily. Check iron studies Patient up and ambulating around. Will not start on Lovenox with recent retroperitoneal bleed Discussed case with patient and at bedside. Physician Certification 2 Midnight Certification Type: Admission for Inpatient Services Order for Inpatient Services The services are ordered in accordance with Medicare regulations or non- Medicare payer requirements, as applicable. In the case of services not specified as inpatient-only, they are appropriately provided as inpatient services in accordance with the 2-midnight benchmark. Estimated LOS (days): 3 days is the estimated time the patient will need to remain in the hospital, assuming treatment plan goals are met and no additional complications. Post-Hospital Plan: Not yet determined Quintin Ly MD May 17, 2017 14:52
[2017-05-17] MEDS ORDERED: NITROGLYCERIN 0.4 MG SL 25 TABS/BTL SL PRN (15:15)
[2017-05-17] MEDS ORDERED: ONDANSETRON HCL 4 MG/2 ML VIAL IV PUSH PRN (15:30)
[2017-05-17] MEDS ORDERED: HYDROmorphone HCL PF 0.5 MG/0.5 ML SYRINGE IV PRN (15:30)
[2017-05-17] MEDS ORDERED: CYANOCOBALAMIN 1000 MCG/ML VIAL IM SCH (16:00)
--- NOTE | 2017-05-17 16:05 | EKG ---
Date Performed: 05/17/2017 Time Performed: 06:14:32 PTAGE: 71 years EKG: Sinus rhythm RIGHT BUNDLE BRANCH BLOCK ABNORMAL ECG Compared to prior tracing no significant change PREVIOUS TRACING : 08/15/2016 17.29 DOCTOR: Ko Disla Interpretating Date/Time 05/17/2017 16:03:43
[2017-05-17] MEDS: PANTOPRAZOLE SODIUM 40 MG VIAL IV PUSH SCH (16:11)
[2017-05-17] MEDS ORDERED: GLUCAGON 1 MG/ML VIAL OTHER PRN (19:30)
[2017-05-17] MEDS ORDERED: DEXTROSE 50% IN WATER 50 ML VIAL(D50) IV PUSH PRN (19:30)
[2017-05-17] MEDS ORDERED: PLEASE DISCONTINUE PREVIOUS SUPPLEMENTAL SCALE INSULIN ORDERS ONE (19:30)
[2017-05-17 19:38] LABS: HEMATOCRIT 22.7 % (39.0-51.0); MEAN CELL VOLUME 90.1 FL (80.0-100.0); MEAN CORPUSCULAR HEMOGLOBIN 31.5 PG (27.0-34.0); PLATELET COUNT 116 TH/MM3 (150-450); RED BLOOD COUNT 2.52 MIL/MM3 (4.50-5.90); RED CELL DISTRIBUTION WIDTH 14.4 % (11.6-17.2); REVIEW FLAG FINAL
[2017-05-17 20:00] VITALS: BP 150/59; PULSE 83; RESP 20; TEMP 98.9; O2SAT 95
[2017-05-17 20:06] LABS: TRANSFERRIN IRON PROFILE 220 MG/DL (200-360)
[2017-05-17 20:08] LABS: FERRITIN 94 NG/ML (26-388)
[2017-05-17] MEDS: ATORVASTATIN 40 MG TAB PO SCH (20:35)
[2017-05-17] MEDS: METOPROLOL TARTRATE 50 MG TAB PO SCH (20:35)
[2017-05-17] MEDS: GABAPENTIN 300 MG CAP PO SCH (20:35)
[2017-05-17] MEDS: LOW DOSE INSULIN NOVOLOG SUPPLEMENTAL SCALE SQ SCH (21:55)
[2017-05-18] VITALS: BP 130/58; PULSE 74; RESP 20; TEMP 99; O2SAT 93
[2017-05-18] MEDS: LEVOTHYROXINE SODIUM 25 MCG TAB PO SCH (05:58)
[2017-05-18 08:00] VITALS: BP 174/78; PULSE 76; RESP 17; TEMP 98.5; O2SAT 96
[2017-05-18 08:24] LABS: MEAN CELL VOLUME 89.7 FL (80.0-100.0); MEAN CORPUSCULAR HEMOGLOBIN 30.7 PG (27.0-34.0); MEAN CORPUSCULAR HGB CONC 34.2 % (32.0-36.0); PLATELET COUNT 142 TH/MM3 (150-450); RED BLOOD COUNT 2.67 MIL/MM3 (4.50-5.90); RED CELL DISTRIBUTION WIDTH 14.2 % (11.6-17.2); REVIEW FLAG FINAL; WHITE BLOOD COUNT 5.7 TH/MM3 (4.0-11.0)
[2017-05-18] MEDS: PANTOPRAZOLE SOD 20 MG DELAYED RELEASE TAB PO SCH (08:48)
[2017-05-18] MEDS: GABAPENTIN 300 MG CAP PO SCH ×2 (08:48→21:19)
[2017-05-18] MEDS: METOPROLOL TARTRATE 50 MG TAB PO SCH ×2 (08:48→21:19)
[2017-05-18] MEDS: ASPIRIN 81 MG CHEW TAB CHEW SCH (08:49)
[2017-05-18] MEDS: CLOPIDOGREL 75 MG TAB PO SCH (08:49)
[2017-05-18] MEDS: amLODIPine BESYLATE 5 MG TAB PO SCH (08:49)
[2017-05-18] MEDS: FERROUS SULFATE 325 MG (65 MG ELEMENTAL IRON) TAB PO SCH (08:49)
[2017-05-18] MEDS: LOW DOSE INSULIN NOVOLOG SUPPLEMENTAL SCALE SQ SCH ×4 (08:50→21:00)
[2017-05-18] MEDS: LISINOPRIL 20 MG TAB PO SCH (08:50)
[2017-05-18 08:52] LABS: ANION GAP 7 MEQ/L (5-15); AST (GOT) 53 U/L (15-37); BICARBONATE 26.4 MEQ/L (21.0-32.0); BLOOD UREA NITROGEN 11 MG/DL (7-18); CHLORIDE 106 MEQ/L (98-107); GLOMERULAR FILTRATION RATE 94 ML/MIN (>89); SODIUM (NA) 139 MEQ/L (136-145)
[2017-05-18 08:58] LABS: ALKALINE PHOSPHATASE 124 U/L (45-117); ALT (GPT) 55 U/L (12-78); HDL CHOLESTEROL 48.1 MG/DL (40.0-60.0); LDL CHOLESTEROL 24 MG/DL (0-99); TOTAL BILIRUBIN ADULT 1.4 MG/DL (0.2-1.0)
[2017-05-18] MEDS: DEXT 5%-NACL 0.9% 1000 ML INJ 1,000 ML IV SCH ×2 (08:59→21:20)
[2017-05-18 10:13] LABS: HEMOGLOBIN A1a 1.5 %; HEMOGLOBIN A1b 0.9 %; HEMOGLOBIN Ao 81.9 %; HEMOGLOBIN F 1.3 %; HEMOGLOBIN LA1C 2.7 %; HEMOGLOBIN P3 4.2 %
--- NOTE | 2017-05-18 10:36 | PD.VS.PN ---
Subjective Subjective/Hospital Course Pt w/o abdominal pain/back pain Reviewed Labs stable H&H Objective Vitals/I&O Date Time Temp Pulse Resp B/P (MAP) Pulse Ox O2 Delivery O2 Flow Rate FiO2 05/18/17 08:00 98.5 76 17 174/78 (110) 96 05/18/17 00:00 99.0 74 20 130/58 (82) 93 05/17/17 20:00 98.9 83 20 150/59 (89) 95 05/17/17 12:22 05/17/17 12:00 100.4 92 20 174/77 (109) 97 05/17/17 11:11 90 20 173/72 (105) 96 Room Air 05/18/17 05/18/17 05/18/17 07:00 15:00 23:00 Intake Total 1033 ml 452 ml Output Total 600 ml Balance 433 ml 452 ml Physical Exam GENERAL: SKIN: Warm and dry. GASTROINTESTINAL: NT MUSCULOSKELETAL: No cyanosis, or edema. Laboratory Laboratory Tests Test 05/17/17 18:27 05/18/17 06:43 White Blood Count 7.0 5.7 Red Blood Count 2.52 2.67 Hemoglobin 8.0 8.2 Hematocrit 22.7 24.0 Mean Corpuscular Volume 90.1 89.7 Mean Corpuscular Hemoglobin 31.5 30.7 Mean Corpuscular Hemoglobin Concent 35.0 34.2 Red Cell Distribution Width 14.4 14.2 Platelet Count 116 142 Mean Platelet Volume 8.6 8.5 Iron Level 26 Total Iron Binding Capacity 308 Percent Iron Saturation 8.4 Ferritin 94 Blood Urea Nitrogen 11 Creatinine 0.81 Random Glucose 211 Total Protein 6.1 Albumin 2.7 Calcium Level 8.0 Alkaline Phosphatase 124 Aspartate Amino Transf (AST/SGOT) 53 Alanine Aminotransferase (ALT/SGPT) 55 Total Bilirubin 1.4 Sodium Level 139 Potassium Level 4.0 Chloride Level 106 Carbon Dioxide Level 26.4 Anion Gap 7 Estimat Glomerular Filtration Rate 94 Triglycerides Level 89 Cholesterol Level 90 LDL Cholesterol 24 HDL Cholesterol 48.1 Cholesterol/HDL Ratio 1.87 Lipase 87 Imaging Last 48 hours Impressions Abdomen/Pelvis CT 05/17/17 0000 Signed Impressions: Service Date/Time: Wednesday, May 17, 2017 04:05 - CONCLUSION: 1. There is stranding and prominent density in the retroperitoneum likely representing an area of spontaneous hemorrhage measuring 6.2 x 2.9 x 8.2 cm. 2. The pancreas is unremarkable. 3. Diverticulosis without diverticulitis. 4. Fat containing umbilical hernia. Champ Cortes MD Assessment and Plan Assessment: (1) Status post insertion of iliac artery stent (2) Retroperitoneal bleed (3) Abdominal pain Plan Pt with postprandial pain and chemical pancreatitis but on CT pancreas looks ok. Called bc of RP hematoma. Pt had iliac stents for claudication placed elsewhere and he describes that the procedure was difficult. On CT he was found to have RP hematoma that is small and relatively unimpressive. Hgb stable 0200 to 0800. Abdomen benign. Palpable femoral pulses. Likely nothing needs to be done with small RP hematoma. Will recheck one more Hct and then likely can f/u with IR who did iliac stents. Reviewed recent labs, pt with stable H&H and improved abdominal pain Plan Discussed and reviewed labs/recent imaging studies w/ pt Pt with a small RP hematoma that has improved since last CT imaging study Pt w/ improved abdominal pain Pt will f/u with his OP vascular surgeon on MAY 30 at his scheduled appointment time Pt clear for d/c from a vascular standpoint Sienna CHANG [facility] [phone] Problem Qualifiers (1) Abdominal pain: Qualified Codes: R10.13 - Epigastric pain Sienna Cruz May 18, 2017 10:36
[2017-05-18] MEDS: MAGNESIUM OXIDE 400 MG TAB PO SCH (11:37)
[2017-05-18 12:00] VITALS: BP 161/73; PULSE 73; RESP 17; TEMP 97.1; O2SAT 98
[2017-05-18] MEDS: PANTOPRAZOLE SODIUM 40 MG VIAL IV PUSH SCH (14:58)
[2017-05-18 16:00] VITALS: BP 177/74; PULSE 77; RESP 17; TEMP 98.2; O2SAT 97
[2017-05-18] MEDS ORDERED: cloNIDine HCL 0.1 MG TAB PO PRN (16:30)
[2017-05-18] MEDS ORDERED: ENALAPRILAT 1.25 MG/ML VIAL IV PUSH PRN (16:30)
--- NOTE | 2017-05-18 16:31 | HHI.PR ---
Subjective Remarks Improvement in abdominal symptoms today. Anemia is present, no downward trend. Fevers present overnight. Objective Vital Signs Date Time Temp Pulse Resp B/P (MAP) Pulse Ox O2 Delivery O2 Flow Rate FiO2 05/18/17 16:00 98.2 77 17 177/74 (108) 97 05/18/17 12:00 97.1 73 17 161/73 (102) 98 05/18/17 08:00 98.5 76 17 174/78 (110) 96 05/18/17 00:00 99.0 74 20 130/58 (82) 93 05/17/17 20:00 98.9 83 20 150/59 (89) 95 I/O 05/17/17 05/17/17 05/17/17 05/18/17 05/18/17 05/18/17 07:00 15:00 23:00 07:00 15:00 23:00 Intake Total 500 ml 0 ml 515 ml 1033 ml 452 ml Output Total 300 ml 1150 ml 600 ml Balance 500 ml -300 ml -635 ml 433 ml 452 ml Intake Oral 0 ml 0 ml IV Total 500 ml 515 ml 1033 ml 452 ml Output Urine Total 300 ml 1150 ml 600 ml # Voids 1 # Bowel Movements 0 Result Diagram: 05/18/1764205/18/17642 Objective Remarks GENERAL: NAD, A&Ox3 HEAD: Normocephalic. NECK: Supple, trachea midline. No lymphadenopathy. EYES: No scleral icterus. No injection or drainage. CARDIOVASCULAR: Regular rate and rhythm without murmurs, gallops, or rubs. RESPIRATORY: Breath sounds equal bilaterally. No accessory muscle use. GASTROINTESTINAL: Abdomen soft, non-tender, nondistended. MUSCULOSKELETAL: No cyanosis, or edema. SKIN: Warm and dry. NEURO: No focal neurological deficitis. A/P Problem List: (1) Retroperitoneal bleed ICD Code: R58 - Hemorrhage, not elsewhere classified (2) Abdominal pain ICD Code: R10.9 - Unspecified abdominal pain (3) Pancreatitis ICD Code: K85.90 - Acute pancreatitis without necrosis or infection, unspecified Status: Acute Assessment and Plan Assessment and Plan 71-year-old male admitted secondary to acute pancreatitis and retroperitoneal bleed Acute pancreatitis Advance diet Lipase has normalized Improving so far Follow clinically Follow lipase History of status post iliac bilateral iliac stenting Related, subacute retroperitoneal hemorrhage Continue Plavix and aspirin Coronary artery disease Status post coronary stent Follow clinically No chest pain Continue aspirin Continue statin Hypertension Continue amlodipine Continue Lopressor Continue lisinopril Follow blood pressures Diabetes mellitus type 2 Follow blood sugars Insulin sliding scale Diabetic diet Hypothyroidism Continue Synthroid Follows in outpatient Anemia Follow CBC Continue iron supplements DVT prophylaxis SCDs Problem Qualifiers (1) Abdominal pain: Qualified Codes: R10.13 - Epigastric pain (2) Pancreatitis: Qualified Codes: K85.90 - Acute pancreatitis without necrosis or infection, unspecified Butch Guevara MD May 18, 2017 16:31
[2017-05-18 20:00] VITALS: BP 181/75; PULSE 74; RESP 17; TEMP 99; O2SAT 98
[2017-05-18] MEDS: ATORVASTATIN 40 MG TAB PO SCH (21:20)
[2017-05-19] VITALS: BP 156/70; PULSE 68; RESP 17; TEMP 98.5; O2SAT 98
[2017-05-19] MEDS: LEVOTHYROXINE SODIUM 25 MCG TAB PO SCH (05:33)
[2017-05-19] MEDS: DEXT 5%-NACL 0.9% 1000 ML INJ 1,000 ML IV SCH (05:34)
[2017-05-19 08:00] VITALS: BP 171/74; PULSE 76; RESP 21; TEMP 97.5; O2SAT 95
[2017-05-19] MEDS ORDERED: metFORMIN HCL 500 MG TAB PO SCH (09:00)
[2017-05-19 09:08] LABS: AUTOMATED NEUTROPHIL # 3.6 TH/MM3 (1.8-7.7); BASOPHIL % 0.5 % (0.0-2.0); EOSINOPHIL # 0.1 TH/MM3 (0-0.4); HEMATOCRIT 23.9 % (39.0-51.0); HEMO FLAGS DIFF FINAL; LYMPH % 22.3 % (9.0-44.0); LYMPHOCYTE # 1.3 TH/MM3 (1.0-4.8); MEAN CELL VOLUME 89.8 FL (80.0-100.0); MEAN CORPUSCULAR HEMOGLOBIN 31.3 PG (27.0-34.0); MEAN CORPUSCULAR HGB CONC 34.8 % (32.0-36.0); MONO % 13.1 % (0.0-8.0); NEUT % 62.1 % (16.0-70.0); PLATELET COUNT 148 TH/MM3 (150-450); RED BLOOD COUNT 2.66 MIL/MM3 (4.50-5.90); RED CELL DISTRIBUTION WIDTH 14.3 % (11.6-17.2); WHITE BLOOD COUNT 5.8 TH/MM3 (4.0-11.0)
[2017-05-19 09:31] LABS: ANION GAP 8 MEQ/L (5-15); AST (GOT) 25 U/L (15-37); BLOOD UREA NITROGEN 8 MG/DL (7-18); CHLORIDE 105 MEQ/L (98-107); GLOMERULAR FILTRATION RATE 106 ML/MIN (>89); POTASSIUM 3.8 MEQ/L (3.5-5.1); SODIUM (NA) 139 MEQ/L (136-145)
[2017-05-19 09:37] LABS: ALKALINE PHOSPHATASE 119 U/L (45-117); ALT (GPT) 40 U/L (12-78)
[2017-05-19] MEDS: GABAPENTIN 300 MG CAP PO SCH (09:42)
[2017-05-19] MEDS: PANTOPRAZOLE SOD 20 MG DELAYED RELEASE TAB PO SCH (09:43)
[2017-05-19] MEDS: LISINOPRIL 20 MG TAB PO SCH (09:43)
[2017-05-19] MEDS: ASPIRIN 81 MG CHEW TAB CHEW SCH (09:44)
[2017-05-19] MEDS: LOW DOSE INSULIN NOVOLOG SUPPLEMENTAL SCALE SQ SCH ×2 (09:44→11:51)
[2017-05-19] MEDS: FERROUS SULFATE 325 MG (65 MG ELEMENTAL IRON) TAB PO SCH (09:44)
[2017-05-19] MEDS: amLODIPine BESYLATE 5 MG TAB PO SCH (09:44)
[2017-05-19] MEDS: METOPROLOL TARTRATE 50 MG TAB PO SCH (09:44)
[2017-05-19] MEDS: CLOPIDOGREL 75 MG TAB PO SCH (09:44)
[2017-05-19] MEDS: MAGNESIUM OXIDE 400 MG TAB PO SCH (11:50)
[2017-05-19 12:00] VITALS: BP 168/72; PULSE 65; RESP 20; TEMP 97.1; O2SAT 99
--- NOTE | 2017-05-19 12:12 | HHI.DS ---
Discharge Summary Admission Date May 17, 2017 at 10:34 Discharge Date: May 19, 2017 Admitting Diagnosis pancreatitis, retroperitoneal bleed (1) Pancreatitis ICD Code: K85.90 - Acute pancreatitis without necrosis or infection, unspecified Status: Acute (2) Retroperitoneal bleed ICD Code: R58 - Hemorrhage, not elsewhere classified Procedures None Brief History - From Admission Patient is a 71-year-old male who just had a recent bilateral iliac stent placed last May 11 at the [facility], procedure complicated with retroperitoneal bilateral bleeding. History of CAD status post CABG, history of PCI placed on January 2017, type 2 diabetes, insulin- requiring who presented with epigastric pain that started last evening across the abdomen 3 hours after eating dinner. Overnight patient with severe epigastric discomfort associated with nausea however no vomiting. Denies any diarrhea melena or hematochezia. Persistence of abdominal pain prompted consult to ER where on evaluation was noted to have an elevated lipase. Patient admitted for further evaluation and management. No Alcohol use states this is the first episode of pancreatitis. As mentioned patient just had a recent bilateral iliac stent placed on May 11 he was discharged on May 14 and has been getting up walking around fairly. A CT of the abdomen was done today to follow-up on does retroperitoneal bleed and showed size had decreased from 11-9.6 today. Patient was promptly seen by vascular surgery for evaluation of this. CBC/BMP: 05/19/17 0750 05/19/17 0750 Significant Findings Laboratory Tests Test 05/17/17 02:35 05/17/17 02:45 05/17/17 05:28 05/17/17 07:18 Red Blood Count 2.65 MIL/MM3 (4.50-5.90) Hemoglobin 8.4 GM/DL (13.0-17.0) 8.3 GM/DL (13.0-17.0) Hematocrit 23.8 % (39.0-51.0) Platelet Count 123 TH/MM3 (150-450) Neutrophils (%) (Auto) 77.2 % (16.0-70.0) Monocytes (%) (Auto) 12.1 % (0.0-8.0) Lymphocytes # (Auto) 0.6 TH/MM3 (1.0-4.8) Random Glucose 191 MG/DL (74-106) Albumin 3.1 GM/DL (3.4-5.0) Calcium Level 8.3 MG/DL (8.5-10.1) Aspartate Amino Transf (AST/SGOT) 95 U/L (15-37) Total Bilirubin 2.5 MG/DL (0.2-1.0) Estimat Glomerular Filtration Rate 85 ML/MIN (>89) Troponin I LESS THAN 0.02 NG/ML Lipase 1493 U/L (73-393) Urine Protein 30 mg/dL (NEG-TRACE) Test 05/17/17 18:27 05/18/17 06:43 05/19/17 07:50 Red Blood Count 2.52 MIL/MM3 (4.50-5.90) 2.67 MIL/MM3 (4.50-5.90) 2.66 MIL/MM3 (4.50-5.90) Hemoglobin 8.0 GM/DL (13.0-17.0) 8.2 GM/DL (13.0-17.0) 8.3 GM/DL (13.0-17.0) Hematocrit 22.7 % (39.0-51.0) 24.0 % (39.0-51.0) 23.9 % (39.0-51.0) Platelet Count 116 TH/MM3 (150-450) 142 TH/MM3 (150-450) 148 TH/MM3 (150-450) Iron Level 26 MCG/DL (65-175) Percent Iron Saturation 8.4 % (20-50) Random Glucose 211 MG/DL (74-106) 205 MG/DL (74-106) Total Protein 6.1 GM/DL (6.4-8.2) 6.1 GM/DL (6.4-8.2) Albumin 2.7 GM/DL (3.4-5.0) 2.8 GM/DL (3.4-5.0) Calcium Level 8.0 MG/DL (8.5-10.1) Alkaline Phosphatase 124 U/L (45-117) 119 U/L (45-117) Aspartate Amino Transf (AST/SGOT) 53 U/L (15-37) Total Bilirubin 1.4 MG/DL (0.2-1.0) Hemoglobin A1c 7.4 % (4.3-6.0) Cholesterol Level 90 MG/DL (120-200) Monocytes (%) (Auto) 13.1 % (0.0-8.0) Hospital Course Mr. arredondo is a 71-year-old male. He was admitted secondary to severe abdominal pain. Pancreatitis was present. This occurred in the presence of a subacute retroperitoneal bleed. Hemoglobin has stayed stable while he's been here in the hospital. Etiology may be a transient biliary obstruction from gallstone. He had abrupt resolution of his biliary colic pain continued pancreatic pain which is rapidly improving. Presently he is tolerating a diet and he has had resolution of his elevated lipase, elevated LFTs, and elevated bilirubin. He has had a bowel movement. At this point is medically stable for discharge to home. Pt Condition on Discharge: Stable Discharge Disposition: Discharge Home Discharge Time: <= 30 minutes Discharge Instructions DIET: Follow Instructions for: As Tolerated, No Restrictions, Low Fat Diet Activities you can perform: Regular-No Restrictions Follow up Referrals: PCP Follow-up - 1 Week Continued Medications: Amlodipine (Amlodipine) 5 Mg Tab 5 MG PO DAILY for Blood Pressure Management, #30 TAB 0 Refills Aspirin (Aspirin) 81 Mg Chew 81 MG CHEW DAILY, TAB 0 Refills Clopidogrel (Plavix) 75 Mg Tab 75 MG PO DAILY for Regulate Heart Beat, #30 TAB 7 Refills Cyanocobalamin Inj (Cyanocobalamin Inj) 1,000 Mcg/Ml Inj 1000 MCG IM Q30D, #1 VIAL 0 Refills Gabapentin (Gabapentin) 300 Mg Cap 300 MG PO BID, #60 CAP 0 Refills Insulin Human Isophane-Regular 70-30 Inj (Novolin 70-30 Inj) 1,000 Unit/10 Ml Vial 52 UNITS SQ DAILY for Blood Sugar Management, ML 0 Refills Insulin Human Isophane-Regular 70-30 Inj (Novolin 70-30 Inj) 1,000 Unit/10 Ml Vial 50 UNITS SQ HS for Blood Sugar Management, ML 0 Refills Levothyroxine (Levothyroxine) 25 Mcg Tab 25 MCG PO DAILY for Thyroid, #30 TAB 0 Refills Lisinopril (Lisinopril) 40 Mg Tab 40 MG PO DAILY for Blood Pressure Management, #30 TAB 0 Refills Magnesium Oxide (Magnesium Oxide) 400 Mg Cap 1 CAP PO DAILY Metformin ER (Metformin ER) 1,000 Mg Porsha 1000 MG PO DAILY for Blood Sugar Management, #30 TAB 0 Refills With evening meal Metoprolol Tartrate (Metoprolol Tartrate) 50 Mg Tab 50 MG PO BID, #60 TAB 0 Refills Nitroglycerin SL (Nitroglycerin SL) 0.4 Mg Subl 0.4 MG SL DIRECTED PRN for CHEST PAIN, #100 TAB.SL 0 Refills ONE TABLET UNDER THE TONGUE NEEDED FOR CHEST PAIN, MAY REPEAT EVERY FIVE MINUTES FOR A TOTAL OF 3 DOSES OR CALL 911 IF NO RELIEF Rosuvastatin (Rosuvastatin) 20 Mg Tab 20 MG PO HS for Cholesterol Management, #30 TAB 0 Refills Butch Guevara MD May 19, 2017 12:12
== END 2017-05-19 15:04 | disposition home or self-care (01) | DRG 439 ==
LOC: NEPC 01:10 → NEDA 10:34 → N07A 12:34
PROVIDERS: ADMIT Hospitalist; ATTEND Hospitalist
DX: K85.90 Acute pancreatitis without necrosis or infection, unspecified (principal); I97.618 Postprocedural hemorrhage of a circulatory system organ or structure following other circulatory system procedure; E11.51 Type 2 diabetes mellitus with diabetic peripheral angiopathy without gangrene; D64.9 Anemia, unspecified; I10 Essential (primary) hypertension; E03.9 Hypothyroidism, unspecified; M19.90 Unspecified osteoarthritis, unspecified site; K21.9 Gastro-esophageal reflux disease without esophagitis; E78.5 Hyperlipidemia, unspecified; I25.10 Atherosclerotic heart disease of native coronary artery without angina pectoris; Z95.820 Peripheral vascular angioplasty status with implants and grafts; Z95.1 Presence of aortocoronary bypass graft; Z95.5 Presence of coronary angioplasty implant and graft; Z79.4 Long term (current) use of insulin; Z79.82 Long term (current) use of aspirin; Z86.19 Personal history of other infectious and parasitic diseases
CPT/HCPCS: 74177; 80053; 80061; 81001; 82728; 82948; 83036; 83540; 83550; 83690; 84484; 85018; 85025; 85027; 85610; 86850; 86900; 86901; 93005; 96361; 96374; 96375; C9113; J1815; J2270; J2405; J3420; J7040; J7042; Q9967

== ENCOUNTER 2017-05-21 00:06 | Emergency (ER) | payer MEDICARE, OTHER ==
[~2017-05-21] VITALS: Ht 170.2 cm; Wt 77.6 kg
[~2017-05-21 00:06] MED LIST changes: -ATOR20TA15 PO; +CYAN1000P IM; -CYAN1TAB24; +LISI40TA PO; -OMEP20TA PO; -RAMI2.5C PO; +ROSU1TAB8 PO
[2017-05-21] MEDS ORDERED: IOHEXOL 350 MG/ML 10 ML VIAL (for RAD DIAG) IVCONTRAST ONE (00:07)
[2017-05-21 00:12] VITALS: BP 191/77; PULSE 74; RESP 16; TEMP 98.2; O2SAT 98
[2017-05-21] MEDS ORDERED: SODIUM CHLOR 0.9% 1000 ML INJ 1,000 ML IV SCH (00:38)
[2017-05-21] MEDS ORDERED: MORPHINE SULFATE 4 MG/ML INJ IV PUSH ONE (00:45)
[2017-05-21] MEDS ORDERED: SODIUM CHLORIDE 0.9% FLUSH 10 ML FLUSH IV FLUSH PRN (00:45)
[2017-05-21] MEDS ORDERED: ONDANSETRON HCL 4 MG/2 ML VIAL IVP ONE (00:45)
[2017-05-21 00:54] LABS: AUTOMATED NEUTROPHIL # 5.4 TH/MM3 (1.8-7.7); BASOPHIL % 0.6 % (0.0-2.0); EOSINOPHIL # 0.1 TH/MM3 (0-0.4); EOSINOPHIL % 1.4 % (0.0-4.0); HEMATOCRIT 25.2 % (39.0-51.0); HEMOGLOBIN 8.4 GM/DL (13.0-17.0); LYMPH % 14.8 % (9.0-44.0); LYMPHOCYTE # 1.1 TH/MM3 (1.0-4.8); MEAN CELL VOLUME 88.2 FL (80.0-100.0); MEAN CORPUSCULAR HEMOGLOBIN 29.6 PG (27.0-34.0); MEAN CORPUSCULAR HGB CONC 33.6 % (32.0-36.0); MEAN PLATELET VOLUME 6.9 FL (7.0-11.0); MONO % 11.5 % (0.0-8.0); MONOCYTE # 0.9 TH/MM3 (0-0.9); NEUT % 71.7 % (16.0-70.0); PLATELET COUNT 279 TH/MM3 (150-450); RED BLOOD COUNT 2.85 MIL/MM3 (4.50-5.90); RED CELL DISTRIBUTION WIDTH 13.9 % (11.6-17.2); WHITE BLOOD COUNT 7.5 TH/MM3 (4.0-11.0)
[2017-05-21] MEDS ORDERED: MORPHINE SULFATE 8 MG/ML INJ IV PUSH ONE ×2 (01:00→02:45)
[2017-05-21 01:02] LABS: CHLORIDE 104 MEQ/L (98-107); SODIUM (NA) 139 MEQ/L (136-145)
[2017-05-21] MEDS ORDERED: FERR325C PO (01:02)
[2017-05-21] MEDS ORDERED: VITA250T3 PO (01:02)
[2017-05-21 01:05] LABS: ALBUMIN 2.9 GM/DL (3.4-5.0); BICARBONATE 27.4 MEQ/L (21.0-32.0); CALCIUM 8.3 MG/DL (8.5-10.1); GLUCOSE,RANDOM 109 MG/DL (74-106); LIPASE 96 U/L (73-393)
[2017-05-21 01:06] LABS: BLOOD UREA NITROGEN 13 MG/DL (7-18)
[2017-05-21 01:08] LABS: ALT (GPT) 30 U/L (12-78); AST (GOT) 17 U/L (15-37); CREATININE 0.87 MG/DL (0.60-1.30); GLOMERULAR FILTRATION RATE 87 ML/MIN (>89)
[2017-05-21 01:09] LABS: PROTHROMBIN TIME - PATIENT 10.9 SEC (9.8-11.6)
[2017-05-21 01:10] LABS: TOTAL BILIRUBIN ADULT 0.8 MG/DL (0.2-1.0); TOTAL PROTEIN 6.8 GM/DL (6.4-8.2)
[2017-05-21 01:11] LABS: ALKALINE PHOSPHATASE 117 U/L (45-117)
--- NOTE | 2017-05-21 01:41 | PD ---
HPI Chief Complaint: Abdominal Pain Time Seen by Provider: 00:31 Travel History International Travel<30 days: No Contact w/Intl Traveler<30days: No History of Present Illness HPI Patient is a 71-year-old male with history of CAD status post CABG, history of PCI placed on July 2016 to left circumflex artery, diabetes mellitus type 2 requiring insulin, bilateral iliac stenting, hypertension, hyperlipidemia, hypothyroidism, B12 deficiency who returns to emergency room after he was admitted to the hospital yesterday for evaluation of retroperitoneal bleeding. Patient had a recent bilateral iliac stent placed on May 11, 2017 at the [facility]. His procedure was complicated with retroperitoneal bleeding. Patient presents to the emergency room on May 17, 2017 with severe pains to his epigastrium with associated nausea with no vomiting. During that admission, a CT of the abdomen and pelvis with IV contrast was obtained on May 17, 2017, it appeared that the patient had a area spontaneous hemorrhage measuring 6.2x 2.9x 8.2cm in size. When studies from the [facility] were obtained, it appeared that the spontaneous hemorrhage had decreased from 11cm in size. Patient was also diagnosed with pancreatitis with a lipase of 1493. Patient was seen by vascular surgery, since the hematoma was improving, patient was safe to be discharged home with follow-up with a vascular surgeon as scheduled on May 30 - he was cleared from a vascular standpoint. Patient reports that he was discharged from the hospital yesterday as he is feeling better. Patient reports that tonight, he went to lay down around 7 PM and had return of pain. Patient reports severe epigastric pain with no nausea or vomiting. Patient denies any fevers or chills, denies any constipation or diarrhea. Patient reports that pain is similar to when he was admitted to the hospital a few days ago. PFSH Past Medical History Hx Anticoagulant Therapy: Yes (asa 81mg) Arthritis: Yes (hips) Autoimmune Disease: No Blood Disorders: No Cancer: No Cardiac Catheterization: Yes (2 STENTS "IN LOWER ARTERIES", Apr) Cardiovascular Problems: Yes (htn on meds, 3 vessel bypass) High Cholesterol: Yes Chest Pain: Yes Coronary Artery Disease: Yes Diabetes: Yes Patient Takes Glucophage: Yes Diverticulitis: Yes GERD: Yes Genitourinary: No Hepatitis: Yes (HX HEP C. TREATED 2001) Hypertension: Yes Immune Disorder: No Musculoskeletal: Yes Neurologic: No Psychiatric: No Reproductive: No Pancreatitis: Yes Shingles: Yes Thyroid Disease: Yes (HYPOTHYROIDISM) Tetanus Vaccination: < 5 Years Influenza Vaccination: Yes Past Surgical History Arteriovenous Shunt: Yes (bilateral femoral arteries) Cardiac Surgery: Yes (triple bypass, 2 stents) Coronary Artery Bypass Graft: Yes (3 VESSEL, TRIPLE BYPASS 2002) Coronary Stent: Yes (X1 JULY 2016) Eye Surgery: Yes (cataract) Tonsillectomy: Yes Other Surgery: Yes (LEFT CAROTID ARTERY SURGERY) Social History Alcohol Use: No Tobacco Use: No (QUIT CIGARETTES 1970, CURRENTLY OCCASIONAL CIGAR) Substance Use: 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) Allergies-Medications (Allergen,Severity, Reaction): Coded Allergies: No Known Allergies (Unverified , 05/21/17) Reported Meds & Prescriptions Reported Meds & Active Scripts Active Plavix (Clopidogrel Bisulfate) 75 Mg Tab 75 Mg PO DAILY Reported Vitamin C (Ascorbic Acid) 250 Mg Tab 250 Mg PO Iron (Ferrous Sulfate) 325 Mg Cap 325 Mg PO DAILY Rosuvastatin (Rosuvastatin Calcium) 20 Mg Tab 10 Mg PO HS Lisinopril 40 Mg Tab 40 Mg PO DAILY Metformin ER (Metformin HCl) 1,000 Mg Porsha 1,000 Mg PO DAILY With evening meal Cyanocobalamin Inj (Cyanocobalamin) 1,000 Mcg/Ml Inj 1,000 Mcg IM Q30D Nitroglycerin SL (Nitroglycerin) 0.4 Mg Subl 0.4 Mg SL DIRECTED PRN ONE TABLET UNDER THE TONGUE NEEDED FOR CHEST PAIN, MAY REPEAT EVERY FIVE MINUTES FOR A TOTAL OF 3 DOSES OR CALL 911 IF NO RELIEF Levothyroxine (Levothyroxine Sodium) 25 Mcg Tab 25 Mcg PO DAILY Gabapentin 300 Mg Cap 300 Mg PO BID Amlodipine (Amlodipine Besylate) 5 Mg Tab 5 Mg PO DAILY Metoprolol Tartrate 50 Mg Tab 50 Mg PO BID Aspirin 81 Mg Chew 81 Mg CHEW DAILY Magnesium Oxide 400 Mg Cap 1 Cap PO DAILY Novolin 70-30 Inj (Insulin Human Isoph/Insulin Regular) 1,000 Unit/10 Ml Vial 50 Units SQ HS Novolin 70-30 Inj (Insulin Human Isoph/Insulin Regular) 1,000 Unit/10 Ml Vial 66 Units SQ DAILY Review of Systems General / Constitutional: No: Fever Eyes: No: Visual changes HENT: No: Headaches Cardiovascular: No: Chest Pain or Discomfort Respiratory: No: Shortness of Breath Gastrointestinal: Positive: Abdominal Pain, No: Nausea, Vomiting, Diarrhea Genitourinary: No: Dysuria Musculoskeletal: No: Pain Skin: No Rash Neurologic: No: Weakness Psychiatric: No: Depression Endocrine: No: Polydipsia Hematologic/Lymphatic: No: Easy Bruising Physical Exam Narrative GENERAL: Mild distress SKIN: Focused skin assessment warm/dry. HEAD: Atraumatic. Normocephalic. EYES: Pupils equal and round. No scleral icterus. No injection or drainage. ENT: No nasal bleeding or discharge. Mucous membranes pink and moist. NECK: Trachea midline. No JVD. CARDIOVASCULAR: Regular rate and rhythm. No murmur appreciated. RESPIRATORY: No accessory muscle use. Clear to auscultation. Breath sounds equal bilaterally. GASTROINTESTINAL: Abdomen soft, mild tenderness to the epigastrium, nondistended. Hepatic and splenic margins not palpable. MUSCULOSKELETAL: No obvious deformities. No clubbing. No cyanosis. No edema. NEUROLOGICAL: Awake and alert. No obvious cranial nerve deficits. Motor grossly within normal limits. Normal speech. PSYCHIATRIC: Appropriate mood and affect; insight and judgment normal. Data Data Last Documented VS Vital Signs Date Time Temp Pulse Resp B/P (MAP) Pulse Ox O2 Delivery O2 Flow Rate FiO2 05/21/17 02:22 76 20 188/82 (117) 96 Room Air 05/21/17 00:12 98.2 Orders Orders Complete Blood Count With Diff (05/21/17 00:38) Comprehensive Metabolic Panel (05/21/17 00:38) Lipase (05/21/17 00:38) Prothrombin Time / Inr (Pt) (05/21/17 00:38) Act Partial Throm Time (Ptt) (05/21/17 00:38) Urinalysis - C+S If Indicated (05/21/17 00:38) Ct Abd/Pel W Iv Contrast(Rout) (05/21/17 00:38) Iv Access Insert/Monitor (05/21/17 00:38) Ecg Monitoring (05/21/17 00:38) Oximetry (05/21/17 00:38) Morphine Inj (Morphine Inj) (05/21/17 00:45) Ondansetron Inj (Zofran Inj) (05/21/17 00:45) Sodium Chlor 0.9% 1000 Ml Inj (Ns 1000 M (05/21/17 00:38) Sodium Chloride 0.9% Flush (Ns Flush) (05/21/17 00:45) Morphine Inj (Morphine Inj) (05/21/17 01:00) Electrocardiogram (05/21/17 ) Potassium Chloride (Kcl) (05/21/17 01:45) Iohexol 350 Inj (Omnipaque 350 Inj) (05/21/17 00:07) Us Abdomen Gallbladder (05/21/17 ) Morphine Inj (Morphine Inj) (05/21/17 02:45) Ed Discharge Order (05/21/17 03:47) Labs Laboratory Tests Test 05/21/17 00:39 05/21/17 01:46 White Blood Count 7.5 TH/MM3 Red Blood Count 2.85 MIL/MM3 Hemoglobin 8.4 GM/DL Hematocrit 25.2 % Mean Corpuscular Volume 88.2 FL Mean Corpuscular Hemoglobin 29.6 PG Mean Corpuscular Hemoglobin Concent 33.6 % Red Cell Distribution Width 13.9 % Platelet Count 279 TH/MM3 Mean Platelet Volume 6.9 FL Neutrophils (%) (Auto) 71.7 % Lymphocytes (%) (Auto) 14.8 % Monocytes (%) (Auto) 11.5 % Eosinophils (%) (Auto) 1.4 % Basophils (%) (Auto) 0.6 % Neutrophils # (Auto) 5.4 TH/MM3 Lymphocytes # (Auto) 1.1 TH/MM3 Monocytes # (Auto) 0.9 TH/MM3 Eosinophils # (Auto) 0.1 TH/MM3 Basophils # (Auto) 0.0 TH/MM3 CBC Comment DIFF FINAL Differential Comment Prothrombin Time 10.9 SEC Prothromb Time International Ratio 1.0 RATIO Activated Partial Thromboplast Time 29.5 SEC Blood Urea Nitrogen 13 MG/DL Creatinine 0.87 MG/DL Random Glucose 109 MG/DL Total Protein 6.8 GM/DL Albumin 2.9 GM/DL Calcium Level 8.3 MG/DL Alkaline Phosphatase 117 U/L Aspartate Amino Transf (AST/SGOT) 17 U/L Alanine Aminotransferase (ALT/SGPT) 30 U/L Total Bilirubin 0.8 MG/DL Sodium Level 139 MEQ/L Potassium Level 3.1 MEQ/L Chloride Level 104 MEQ/L Carbon Dioxide Level 27.4 MEQ/L Anion Gap 8 MEQ/L Estimat Glomerular Filtration Rate 87 ML/MIN Lipase 96 U/L Urine Color YELLOW Urine Turbidity CLEAR Urine pH 5.0 Urine Specific [place] 1.012 Urine Protein 30 mg/dL Urine Glucose (UA) NEG mg/dL Urine Ketones NEG mg/dL Urine Occult Blood TRACE Urine Nitrite NEG Urine Bilirubin NEG Urine Leukocyte Esterase NEG Urine RBC 0-3 /hpf Urine WBC 0-2 /hpf Urine Squamous Epithelial Cells 0-5 /hpf Urine Bacteria NONE /hpf Microscopic Urinalysis Comment CULT NOT INDICATED MDM Medical Decision Making Medical Screen Exam Complete: Yes Emergency Medical Condition: Yes Medical Record Reviewed: Yes Interpretation(s) Vital Signs Date Time Temp Pulse Resp B/P (MAP) Pulse Ox O2 Delivery O2 Flow Rate FiO2 05/21/17 00:12 98.2 74 16 191/77 (115) 98 Differential Diagnosis Pancreatitis, acute on chronic retroperitoneal bleeding, electrolyte abnormality Narrative Course Patient was placed on a cardiac rn. An IV line was established. CBC, CMP, Lipase ordered. CT of abdomen and pelvis ordered to re-evaluate retroperitoneal bleeding. IV morphine as well as antiemetics and fluids will be administered Vital Signs Date Time Temp Pulse Resp B/P (MAP) Pulse Ox O2 Delivery O2 Flow Rate FiO2 05/21/17 02:22 76 20 188/82 (117) 96 Room Air 05/21/17 00:12 98.2 74 16 191/77 (115) 98 Laboratory Tests Test 05/21/17 00:39 05/21/17 01:46 White Blood Count 7.5 TH/MM3 (4.0-11.0) Red Blood Count 2.85 MIL/MM3 (4.50-5.90) Hemoglobin 8.4 GM/DL (13.0-17.0) Hematocrit 25.2 % (39.0-51.0) Mean Corpuscular Volume 88.2 FL (80.0-100.0) Mean Corpuscular Hemoglobin 29.6 PG (27.0-34.0) Mean Corpuscular Hemoglobin Concent 33.6 % (32.0-36.0) Red Cell Distribution Width 13.9 % (11.6-17.2) Platelet Count 279 TH/MM3 (150-450) Mean Platelet Volume 6.9 FL (7.0-11.0) Neutrophils (%) (Auto) 71.7 % (16.0-70.0) Lymphocytes (%) (Auto) 14.8 % (9.0-44.0) Monocytes (%) (Auto) 11.5 % (0.0-8.0) Eosinophils (%) (Auto) 1.4 % (0.0-4.0) Basophils (%) (Auto) 0.6 % (0.0-2.0) Neutrophils # (Auto) 5.4 TH/MM3 (1.8-7.7) Lymphocytes # (Auto) 1.1 TH/MM3 (1.0-4.8) Monocytes # (Auto) 0.9 TH/MM3 (0-0.9) Eosinophils # (Auto) 0.1 TH/MM3 (0-0.4) Basophils # (Auto) 0.0 TH/MM3 (0-0.2) CBC Comment DIFF FINAL Differential Comment Prothrombin Time 10.9 SEC (9.8-11.6) Prothromb Time International Ratio 1.0 RATIO Activated Partial Thromboplast Time 29.5 SEC (24.3-30.1) Blood Urea Nitrogen 13 MG/DL (7-18) Creatinine 0.87 MG/DL (0.60-1.30) Random Glucose 109 MG/DL (74-106) Total Protein 6.8 GM/DL (6.4-8.2) Albumin 2.9 GM/DL (3.4-5.0) Calcium Level 8.3 MG/DL (8.5-10.1) Alkaline Phosphatase 117 U/L (45-117) Aspartate Amino Transf (AST/SGOT) 17 U/L (15-37) Alanine Aminotransferase (ALT/SGPT) 30 U/L (12-78) Total Bilirubin 0.8 MG/DL (0.2-1.0) Sodium Level 139 MEQ/L (136-145) Potassium Level 3.1 MEQ/L (3.5-5.1) Chloride Level 104 MEQ/L (98-107) Carbon Dioxide Level 27.4 MEQ/L (21.0-32.0) Anion Gap 8 MEQ/L (5-15) Estimat Glomerular Filtration Rate 87 ML/MIN (>89) Lipase 96 U/L (73-393) Urine Color YELLOW (YELLW/STRAW) Urine Turbidity CLEAR (CLEAR) Urine pH 5.0 (5.0-8.5) Urine Specific [place] 1.012 (1.002-1.035) Urine Protein 30 mg/dL (NEG-TRACE) Urine Glucose (UA) NEG mg/dL (NEG) Urine Ketones NEG mg/dL (NEG) Urine Occult Blood TRACE (NEG) Urine Nitrite NEG (NEG) Urine Bilirubin NEG (NEG) Urine Leukocyte Esterase NEG (NEG) Urine RBC 0-3 /hpf (0-3) Urine WBC 0-2 /hpf (0-5) Urine Squamous Epithelial Cells 0-5 /hpf (0-5) Urine Bacteria NONE /hpf (NONE) Microscopic Urinalysis Comment CULT NOT INDICATED Last Impressions Abdomen/Pelvis CT 05/21/1737 Signed Impressions: Service Date/Time: Sunday, May 21, 2017 01:38 - CONCLUSION: 1. Cholelithiasis and suspected acute cholecystitis in the proper clinical setting. 2. Subacute right retroperitoneal hematoma is not significantly changed. No new or acute blood seen. 3. No acute abnormality seen of the solid organs or gastrointestinal tract. 4. Aortoiliac atherosclerosis again noted. No aneurysm. 5. Fat-containing umbilical hernia again noted. Solo Cuellar MD Ct of abd/pelvis with cholelithiasis and suspected acute cholecystitis. Patient reports pain to his upper abdomen and cannot focalize his symptoms. RUQ US ordered. AST: 17 ALT: 30 Alk phos: 117 Lipase: 96 Tbili 0.8 Last Impressions Abdomen/Pelvis CT 05/21/1737 Signed Impressions: Service Date/Time: Sunday, May 21, 2017 01:38 - CONCLUSION: 1. Cholelithiasis and suspected acute cholecystitis in the proper clinical setting. 2. Subacute right retroperitoneal hematoma is not significantly changed. No new or acute blood seen. 3. No acute abnormality seen of the solid organs or gastrointestinal tract. 4. Aortoiliac atherosclerosis again noted. No aneurysm. 5. Fat-containing umbilical hernia again noted. Solo Cuellar MD Gall Bladder Ultrasound 05/21/17 0000 Signed Impressions: Service Date/Time: Sunday, May 21, 2017 02:54 - CONCLUSION: Nonspecific wall thickening of the gallbladder. No stones seen with clarity. Negative sonographic Yoder's sign. Solo Cuellar MD RUQ us with nonspecific wall thickening of the gallbladder. There are no stones seen with clarity on US. Patient with neg Yoder's sign. LFT's are within normal limits. CT of abdomen and pelvis suspected acute zurdo but patient is asymptomatic at this time with RUQ with nonspecific wall thickening. I do not think that patient has acute cholecystitis at this time as pain is located more to his epigastrium than RUQ. Overall, patient reports that he is feeling much better at this time. Patient with most likely chronic abdominal pain due to retroperitoneal hematoma which is subacute at this time. Discussed with him that he will need to follow up with his vascular surgeon as well as general surgery. I did review with him signs and symptoms of an acute abdomen and when to return to the ER. He will return to ER as needed. Patient is stable to be discharged to home at this time with outpatient follow up Diagnosis Primary Impression: Abdominal pain Qualified Codes: R10.10 - Upper abdominal pain, unspecified Additional Impressions: Retroperitoneal bleed Anemia Patient Instructions: General Instructions, Narcotic given in the ED Additional Instructions: Please provide patient with a copy of their lab work and studies at discharge* * Please follow up with your primary care doctor in 2-3 days Return to the ER if symptoms worsen or progress Return to the ER as needed Please eat a bland diet Follow up with your vascular surgeon Follow up with general surgeon Disposition: 01 DISCHARGE HOME Condition: Stable Moni Lizama DO May 21, 2017 01:41
[2017-05-21] MEDS ORDERED: POTASSIUM CHLORIDE 10 MEQ CONTROLLED RELEASE TAB PO ONE (01:45)
[2017-05-21 01:55] LABS: BILIRUBIN, URINE NEG (NEG); BLOOD, URINE TRACE (NEG); GLUCOSE,URINE NEG (NEG); KETONE, URINE NEG (NEG); NITRITE,URINE NEG (NEG); URINE COLOR YELLOW (YELLW/STRAW); URINE LEUKOCYTE ESTERASE NEG (NEG)
[2017-05-21 01:59] LABS: RBC, URINE 0-3 /hpf (0-3); SQUAMOUS EPITHELIAL CELL URINE 0-5 /hpf (0-5); WBC, URINE 0-2 /hpf (0-5)
--- NOTE | 2017-05-21 02:09 | RADRPT ---
EXAM DATE/TIME: 05/21/2017 01:38 [facility] COMPARISON: CT ABDOMEN & PELVIS W CONTRAST, May 17, 2017, 4:05. INDICATIONS : Abdomen pain. IV CONTRAST: 95 cc Omnipaque 350 (iohexol) IV ORAL CONTRAST: No oral contrast ingested. RADIATION DOSE: 15.86 CTDIvol (mGy) MEDICAL HISTORY : Cardiovascular disease. Hypertension. Diabetes mellitus type 2.Hep C Diverticulitis SURGICAL HISTORY : CABG Coronary artery stent.Carotid endarterectomy. ENCOUNTER: Initial ACUITY: 1 day PAIN SCALE: 7/10 LOCATION: Bilateral abdomen TECHNIQUE: Volumetric scanning of the abdomen and pelvis was performed. Using automated exposure control and ad justment of the mA and/or kV according to patient size, radiation dose was kept as low as reasonably achievable to obtain optimal diagnostic quality images. DICOM format image data is available electro nically for review and comparison. FINDINGS: Subacute right retroperitoneal hematoma present, measures about 3.5 x 6.3 cm in greatest transaxial d imension and not significantly changed in the interim. There is no evidence of acute/active bleeding. Sludge and/or gravel-like stones are seen dependently within the gallbladder. A 2 mm stone is seen at the Cystic duct junction. There is no stone or distention of the common bile duct seen. There is fat stra nding surrounding the gallbladder. No obstruction or acute inflammatory changes seen of the gastrointestinal tract. Appendix normal. Liver, spleen, pancreas, adrenal glands and kidneys are without evidence of an acute abnormality. Ath erosclerosis again seen of the abdominal aorta and iliac arteries. 2.3 cm anterior abdominal wall def ect again seen at the umbilicus containing fat only. CONCLUSION: 1. Cholelithiasis and suspected acute cholecystitis in the proper clinical setting. 2. Subacute right retroperitoneal hematoma is not significantly changed. No new or acute blood seen. 3. No acute abnormality seen of the solid organs or gastrointestinal tract. 4. Aortoiliac atherosclerosis again noted. No aneurysm. 5. Fat-containing umbilical hernia again noted. Solo Cuellar MD on May 21, 2017 at 2:00 Board Certified Radiologist. This report was verified electronically.
[2017-05-21 02:22] VITALS: BP 188/82; PULSE 76; RESP 20; O2SAT 96
--- NOTE | 2017-05-21 03:39 | RADRPT ---
EXAM DATE/TIME: 05/21/2017 02:54 [facility] COMPARISON: CT ABDOMEN & PELVIS W CONTRAST, May 21, 2017, 1:38. INDICATIONS : Right upper quadrant pain. MEDICAL HISTORY : Hypothyroidism. Hypertension. Hypercholesterolemia. Coronary artery disease. Pancratitis. Diverticuli tis. SURGICAL HISTORY : Tonsillectomy. Triple bypass. ENCOUNTER: Initial ACUITY: 1 day PAIN SCORE: 7/10 LOCATION: Right upper quadrant MEASUREMENTS: LIVER: 12.3 cm length COMMON DUCT: 7 mm RIGHT KIDNEY: 11.5 x 4.8 x 5.5 cm FINDINGS: LIVER: Normal echotexture without focal lesion or ductal dilatation. COMMON DUCT: No intraluminal mass or stone visualized. GALLBLADDER: Mild wall thickening at 3.6 mm. Slightly limited visualization of the neck area. No discrete stones s een by ultrasound. No organized fluid seen by ultrasound. Comparison CT shows pericholecystic edema/f at stranding. Negative sonographic Yoder's sign. PANCREAS: The visualized portions are within normal limits. RIGHT KIDNEY: No evidence of hydronephrosis, stone, or mass. CONCLUSION: Nonspecific wall thickening of the gallbladder. No stones seen with clarity. Negative sonographic Mur phy's sign. Solo Cuellar MD on May 21, 2017 at 3:34 Board Certified Radiologist. This report was verified electronically.
[2017-05-21 04:07] VITALS: BP 183/66; PULSE 82; RESP 18; O2SAT 94
--- NOTE | 2017-05-22 21:02 | EKG ---
Date Performed: 05/21/2017 Time Performed: 02:00:14 PTAGE: 71 years EKG: Sinus rhythm RIGHT BUNDLE BRANCH BLOCK ABNORMAL ECG PREVIOUS TRACING : 05/17/2017 06.14 DOCTOR: Steve Prince Interpretating Date/Time 05/22/2017 20:54:33
== END 2017-05-21 04:15 | disposition home or self-care (01) ==
LOC: PHED 00:06
DX: R10.13 Epigastric pain (principal); R58 Hemorrhage, not elsewhere classified; D64.9 Anemia, unspecified; R94.31 Abnormal electrocardiogram [ECG] [EKG]; I10 Essential (primary) hypertension; E11.9 Type 2 diabetes mellitus without complications; K85.90 Acute pancreatitis without necrosis or infection, unspecified; I25.10 Atherosclerotic heart disease of native coronary artery without angina pectoris; Z79.01 Long term (current) use of anticoagulants
CPT/HCPCS: 74177; 76705; 80053; 81001; 83690; 85025; 85610; 85730; 93005; 96361; 96374; 96375; 96376; 99285; J2270; J2405; J7030; Q9967

== ENCOUNTER 2017-05-22 20:25 | Inpatient (IN) | payer OTHER, MEDICARE ==
[~2017-05-22] VITALS: Ht 172.7 cm; Wt 78.3 kg
[~2017-05-22 20:25] MED LIST changes: +FERR325C PO; +VITA250T3 PO
[2017-05-22 20:35] VITALS: BP 204/81; PULSE 86; RESP 18; TEMP 99.2; O2SAT 96
[2017-05-22 20:54] VITALS: BP 160/69; PULSE 79; RESP 18; O2SAT 95
[2017-05-22 20:59] VITALS: BP 169/64; PULSE 78; RESP 20; O2SAT 96
--- NOTE | 2017-05-22 21:00 | PD ---
HPI Chief Complaint: Abdominal Pain Time Seen by Provider: 20:41 Travel History International Travel<30 days: No Contact w/Intl Traveler<30days: No Traveled to known affect area: No History of Present Illness HPI The patient is a 72 year old female who presents to the [facility] emergency department with a history of abdominal pain that he reports is been gradually worsening since yesterday morning. He reports that the pain is in the right upper quadrant of the abdomen. He reports that he was seen in the emergency department yesterday related to midepigastric pain and to a lesser extent right upper quadrant abdominal pain. He thought it may be related to recurrent pancreatitis since he was recently diagnosed with this, however he was told that his lipase was normal at that time. The patient's recent medical history is significant for on May 11 undergoing bilateral iliac stenting that was complicated by having a retroperitoneal bleed. The patient is a [employer]. The procedure was done at a hospital in [place]. The patient subsequent to that was admitted to this facility on May 17 through May 19 related to recurrent abdominal pain and at that time had pancreatitis thought to be related to biliary stones with biliary colic and a stone that passed as his elevated lipase and elevated liver function tests improve during his hospitalization. The patient reports that since yesterday after being evaluated in the emergency department his pain is gradually gotten worse with time. He reports that the pain is constant and a 6 out of 10 in severity described as a dull pain and then intermittent jabbing that is a 10 out of 10 in severity. He reports having nausea without vomiting. He denies having any diarrhea. He denies having any chest pain, chest pressure, or shortness of breath. He denies having any urinary symptoms. The patient reports that the pain seems to be worse with movement, therefore he has been staying in bed throughout most of the day. He reports that he has no appetite. Otherwise on review of systems, the patient denies having any recent fevers, worsening cough or congestion, neck pain, or neurologic symptoms. [facility] Past Medical History Narrative Medical The patient's past medical history is significant for coronary artery disease status post PCI in January 2017, peripheral arterial disease status post bilateral iliac stenting on May 11, 2017, located by retroperitoneal hemorrhage, history of pancreatitis thought to be related to biliary colic, history of type 2 diabetes mellitus, hyperlipidemia, hypothyroid disorder, B12 deficiency, hypertension. Hx Anticoagulant Therapy: Yes (asa 81mg) Arthritis: Yes (hips) Autoimmune Disease: No Blood Disorders: No Cancer: No Cardiac Catheterization: Yes (2 STENTS "IN LOWER ARTERIES", Apr) Cardiovascular Problems: Yes (htn, 3 vessel bypass) High Cholesterol: Yes Chest Pain: Yes Coronary Artery Disease: Yes Diabetes: Yes Patient Takes Glucophage: Yes (05/22/2017 1700) Diminished Hearing: No Diverticulitis: Yes GERD: Yes Genitourinary: No Hepatitis: Yes (HX HEP C. TREATED 2001) Hypertension: Yes Immune Disorder: No Musculoskeletal: Yes Neurologic: No Psychiatric: No Reproductive: No Pancreatitis: Yes Shingles: Yes Thyroid Disease: Yes (HYPOTHYROIDISM) Tetanus Vaccination: < 5 Years Influenza Vaccination: Yes Past Surgical History Narrative Surgical The patient's past surgical history is significant for left carotid endarterectomy, coronary artery bypass grafting in 2002, bilateral cataract surgery, history of tonsillectomy, history of bilateral iliac stenting, history of PCI for coronary artery in January 2017. Arteriovenous Shunt: Yes (bilateral femoral arteries) Cardiac Surgery: Yes (triple bypass, 2 stents) Coronary Artery Bypass Graft: Yes (3 VESSEL, TRIPLE BYPASS 2002) Coronary Stent: Yes (X1 JULY 2016) Eye Surgery: Yes (cataract) Tonsillectomy: Yes Other Surgery: Yes (LEFT CAROTID ARTERY SURGERY) Social History Alcohol Use: No Tobacco Use: No (QUIT CIGARETTES 1970, CURRENTLY OCCASIONAL CIGAR) Substance Use: Yes (IV drug use in ) Allergies-Medications (Allergen,Severity, Reaction): Coded Allergies: No Known Allergies (Unverified , 05/21/17) Reported Meds & Prescriptions Reported Meds & Active Scripts Active Plavix (Clopidogrel Bisulfate) 75 Mg Tab 75 Mg PO DAILY Reported Vitamin C (Ascorbic Acid) 250 Mg Tab 250 Mg PO Rosuvastatin (Rosuvastatin Calcium) 20 Mg Tab 10 Mg PO HS Lisinopril 40 Mg Tab 40 Mg PO DAILY Metformin ER (Metformin HCl) 1,000 Mg Porsha 1,000 Mg PO DAILY With evening meal Cyanocobalamin Inj (Cyanocobalamin) 1,000 Mcg/Ml Inj 1,000 Mcg IM Q30D Nitroglycerin SL (Nitroglycerin) 0.4 Mg Subl 0.4 Mg SL DIRECTED PRN ONE TABLET UNDER THE TONGUE NEEDED FOR CHEST PAIN, MAY REPEAT EVERY FIVE MINUTES FOR A TOTAL OF 3 DOSES OR CALL 911 IF NO RELIEF Levothyroxine (Levothyroxine Sodium) 25 Mcg Tab 25 Mcg PO DAILY Gabapentin 300 Mg Cap 300 Mg PO BID Amlodipine (Amlodipine Besylate) 5 Mg Tab 5 Mg PO DAILY Metoprolol Tartrate 50 Mg Tab 50 Mg PO BID Aspirin 81 Mg Chew 81 Mg CHEW DAILY Magnesium Oxide 400 Mg Cap 1 Cap PO DAILY Novolin 70-30 Inj (Insulin Human Isoph/Insulin Regular) 1,000 Unit/10 Ml Vial 50 Units SQ HS Novolin 70-30 Inj (Insulin Human Isoph/Insulin Regular) 1,000 Unit/10 Ml Vial 66 Units SQ DAILY Review of Systems Except as stated in HPI: all other systems reviewed are Neg General / Constitutional: No: Fever Eyes: No: Visual changes HENT: No: Headaches Cardiovascular: No: Chest Pain or Discomfort Respiratory: No: Shortness of Breath Gastrointestinal: Positive: Nausea, Abdominal Pain, Loss of Appetite, No: Vomiting, Diarrhea, Hematemesis, Hematochezia, Changes in Bowel Habits, Indigestion Genitourinary: No: Dysuria Musculoskeletal: No: Pain Skin: No Rash Neurologic: No: Weakness Psychiatric: No: Depression Endocrine: No: Polydipsia Hematologic/Lymphatic: No: Easy Bruising Physical Exam Narrative General: The patient is a well-developed well-nourished male, uncomfortable appearing on arrival, reportedly having intermittent sharp pains in the right upper quadrant and holding his right upper quadrant of his abdomen. Head and Neck exam: Head is normocephalic atraumatic. Eyes: EOMI, pupils are equal round and reactive to light. Nose: Midline septum with pink mucous membranes Mouth: Dentition unremarkable. Moist mucus membranes. Posterior oropharynx is not erythematous. No tonsillar hypertrophy. Uvula midline. Airway patent. Neck: No palpable lymphadenopathy. No nuchal rigidity. No thyromegaly. Cardiovascular: Regular rate and rhythm with a 1-2/6 systolic murmur, no gallops or rubs. Lungs: Clear to auscultation bilaterally. No wheezes, rhonchi, or rales. Abdomen: Soft, with tenderness on palpation of the right upper quadrant with positive Yoder sign. No guarding, rebound, or rigidity. Decreased bowel sounds are audible. No other tenderness on palpation of the other quadrants of the abdomen. No tenderness on palpation of McBurney's point. Extremities: No clubbing, cyanosis, or edema. No calf tenderness on palpation. Back: No costovertebral angle tenderness to palpation. Neurologic Exam: Grossly nonfocal. Skin Exam: No rash noted. Intact skin that is warm and dry. Data Data Last Documented VS Vital Signs Date Time Temp Pulse Resp B/P (MAP) Pulse Ox O2 Delivery O2 Flow Rate FiO2 05/22/17 20:59 78 20 169/64 (99) 96 Room Air 05/22/17 20:35 99.2 Orders Orders Electrocardiogram (05/22/17 20:47) Complete Blood Count With Diff (05/22/17 20:47) Comprehensive Metabolic Panel (05/22/17 20:47) Troponin I (05/22/17 20:47) Prothrombin Time / Inr (Pt) (05/22/17 20:47) Act Partial Throm Time (Ptt) (05/22/17 20:47) C-Reactive Protein (Crp) (05/22/17 20:47) Lipase (05/22/17 20:47) Iv Access Insert/Monitor (05/22/17 20:47) Ecg Monitoring (05/22/17 20:47) Oximetry (05/22/17 20:47) Sodium Chlor 0.9% 1000 Ml Inj (Ns 1000 M (05/22/17 21:15) Morphine Inj (Morphine Inj) (05/22/17 21:15) Ondansetron Inj (Zofran Inj) (05/22/17 21:15) Piperacil-Tazo 3.375 Gm Premix (Zosyn 3. (05/22/17 21:45) Admit Order (Ed Use Only) (05/22/17 22:08) Labs Laboratory Tests Test 05/22/17 20:55 White Blood Count 10.4 TH/MM3 Red Blood Count 2.99 MIL/MM3 Hemoglobin 9.0 GM/DL Hematocrit 26.8 % Mean Corpuscular Volume 89.8 FL Mean Corpuscular Hemoglobin 30.2 PG Mean Corpuscular Hemoglobin Concent 33.6 % Red Cell Distribution Width 14.1 % Platelet Count 217 TH/MM3 Mean Platelet Volume 7.8 FL Neutrophils (%) (Auto) 75.5 % Lymphocytes (%) (Auto) 11.6 % Monocytes (%) (Auto) 10.8 % Eosinophils (%) (Auto) 1.4 % Basophils (%) (Auto) 0.7 % Neutrophils # (Auto) 7.9 TH/MM3 Lymphocytes # (Auto) 1.2 TH/MM3 Monocytes # (Auto) 1.1 TH/MM3 Eosinophils # (Auto) 0.1 TH/MM3 Basophils # (Auto) 0.1 TH/MM3 CBC Comment DIFF FINAL Differential Comment Prothrombin Time 11.4 SEC Prothromb Time International Ratio 1.0 RATIO Activated Partial Thromboplast Time 29.3 SEC Blood Urea Nitrogen 11 MG/DL Creatinine 0.85 MG/DL Random Glucose 173 MG/DL Total Protein 6.9 GM/DL Albumin 2.9 GM/DL Calcium Level 8.8 MG/DL Alkaline Phosphatase 114 U/L Aspartate Amino Transf (AST/SGOT) 18 U/L Alanine Aminotransferase (ALT/SGPT) 23 U/L Total Bilirubin 0.8 MG/DL Sodium Level 136 MEQ/L Potassium Level 3.8 MEQ/L Chloride Level 104 MEQ/L Carbon Dioxide Level 24.8 MEQ/L Anion Gap 7 MEQ/L Estimat Glomerular Filtration Rate 89 ML/MIN Troponin I LESS THAN 0.02 NG/ML C-Reactive Protein 16.00 MG/DL Lipase 95 U/L MDM Medical Decision Making Medical Screen Exam Complete: Yes Emergency Medical Condition: Yes Medical Record Reviewed: Yes Differential Diagnosis Recurrent gallstone related pancreatitis, versus acute cholecystitis, versus biliary colic Narrative Course During the course of the patients emergency department visit, the patients history, examination, and differential diagnosis were reviewed with the patient. The patient was placed on a personnel monitor with oximetry and frequent blood pressure monitoring. The patient had IV access obtained and blood work sent for analysis. The patient's electronic medical record was reviewed. The patient was last seen in the emergency department yesterday. A thorough workup ensued. The patient was noted to be anemic, however this was at baseline and his hemoglobin was 8.4. The patient's liver function tests and lipase were within normal limits. The patient underwent a CT scan of the abdomen and pelvis that did show signs of what could be acute cholecystitis. An ultrasound was then done. There was some gallbladder wall thickening, however the patient' s examination was not consistent with acute cholecystitis as the patient's pain had improved prior to discharge according to that record. At this point, there is no reason for the patient to have additional imaging done. The patient's examination is consistent with acute cholecystitis with a positive Yoder sign. Laboratory studies will be repeated to evaluate for possible gallstone related pancreatitis. The patient will be provided IV pain medication and nausea medication as well as IV fluids. The patient had an ECG done on arrival. The patient's ECG reveals a sinus rhythm with a short WA interval, heart rate is 75, QRS duration is 150 ms, QTc is 435 ms with a right bundle branch block noted. The patient has a history of this from reviewing his electronic medical record. T waves are inverted in V1, V2, no acute ST segment elevation. The patient was initially provided morphine for pain, Zofran for nausea, normal saline IV fluids at a maintenance rate. The patients laboratory studies were reviewed and remarkable for a white count of 10.4, hemoglobin 9, platelets 217 with 75.5 neutrophils, monocytes 10.8. CMP is remarkable for a glucose of 173, troponin I is less than 0.02, C- reactive protein is elevated at 16, lipase 95, PT PTT within normal limits. Given the patient's severe pain and findings of acute cholecystitis on imaging done yesterday, the patient will be admitted to the hospitalist service with vertical consultation. The patient was started on Zosyn 3.375 g IV. The patients results were discussed with the patient, including the plan of care. I explained that further testing and/ or monitoring is indicated based on the patients history, examination, and/ or laboratory findings. Therefore, I recommended admission for additional evaluation. The patient expressed understanding and was agreeable with this plan. The patient was admitted to the hospital in stable condition and sent to a bed under the care of the hospitalist service. Physician Communication Physician Communication The patient's case including history, pertinent physical examination findings, and laboratory studies were discussed with Dr. Romero. It was agreed that the patient would be admitted to the [facility] hospitalist service. Diagnosis Primary Impression: Abdominal pain Qualified Codes: R10.11 - Right upper quadrant pain Additional Impression: Acute cholecystitis Admitting Information Admitting Physician Requests: Admit Stacy Worley MD May 22, 2017 21:00
[2017-05-22] MEDS ORDERED: MORPHINE SULFATE 4 MG/ML INJ IV PUSH ONE (21:15)
[2017-05-22] MEDS ORDERED: ONDANSETRON HCL 4 MG/2 ML VIAL IV PUSH ONE (21:15)
[2017-05-22] MEDS: SODIUM CHLOR 0.9% 1000 ML INJ 1,000 ML IV SCH ×2 (21:17→23:25)
[2017-05-22 21:19] LABS: AUTOMATED NEUTROPHIL # 7.9 TH/MM3 (1.8-7.7); BASOPHIL # 0.1 TH/MM3 (0-0.2); BASOPHIL % 0.7 % (0.0-2.0); EOSINOPHIL # 0.1 TH/MM3 (0-0.4); EOSINOPHIL % 1.4 % (0.0-4.0); HEMATOCRIT 26.8 % (39.0-51.0); HEMO FLAGS DIFF FINAL; LYMPH % 11.6 % (9.0-44.0); LYMPHOCYTE # 1.2 TH/MM3 (1.0-4.8); MEAN CELL VOLUME 89.8 FL (80.0-100.0); MEAN CORPUSCULAR HEMOGLOBIN 30.2 PG (27.0-34.0); MEAN CORPUSCULAR HGB CONC 33.6 % (32.0-36.0); MONO % 10.8 % (0.0-8.0); NEUT % 75.5 % (16.0-70.0); PLATELET COUNT 217 TH/MM3 (150-450); RED BLOOD COUNT 2.99 MIL/MM3 (4.50-5.90); RED CELL DISTRIBUTION WIDTH 14.1 % (11.6-17.2); WHITE BLOOD COUNT 10.4 TH/MM3 (4.0-11.0)
[2017-05-22 21:33] LABS: APTT (PATIENT) 29.3 SEC (24.3-30.1); PROTHROMBIN TIME - PATIENT 11.4 SEC (9.8-11.6)
[2017-05-22 21:36] LABS: ANION GAP 7 MEQ/L (5-15); AST (GOT) 18 U/L (15-37); BICARBONATE 24.8 MEQ/L (21.0-32.0); BLOOD UREA NITROGEN 11 MG/DL (7-18); CHLORIDE 104 MEQ/L (98-107); GLOMERULAR FILTRATION RATE 89 ML/MIN (>89); POTASSIUM 3.8 MEQ/L (3.5-5.1); SODIUM (NA) 136 MEQ/L (136-145)
[2017-05-22 21:37] LABS: ALT (GPT) 23 U/L (12-78)
[2017-05-22 21:40] LABS: ALKALINE PHOSPHATASE 114 U/L (45-117); TOTAL BILIRUBIN ADULT 0.8 MG/DL (0.2-1.0)
[2017-05-22] MEDS ORDERED: PIPERACIL-TAZO 3.375 GM PREMIX 50 ML IV ONE (21:45)
[2017-05-22] MEDS ORDERED: LACTULOSE SYRUP 20 GM/30 ML CUP PO PRN (22:15)
[2017-05-22] MEDS ORDERED: SENNOSIDES 8.6 MG TAB PO PRN (22:15)
[2017-05-22] MEDS ORDERED: MAGNESIUM HYDROXIDE SUSP 30 ML CUP PO PRN (22:15)
[2017-05-22] MEDS ORDERED: BISACODYL 10 MG SUPP RECTAL PRN (22:15)
[2017-05-22] MEDS ORDERED: NALOXONE HCL 0.4 MG/ML AMP IV PUSH PRN ×2 (22:15→23:30)
[2017-05-22] MEDS ORDERED: SODIUM CHLORIDE 0.9% FLUSH 10 ML FLUSH IV FLUSH PRN (22:15)
[2017-05-22 22:35] VITALS: BP 188/78
[2017-05-22 23:00] VITALS: BP 169/74; PULSE 72; RESP 20; TEMP 99.7; O2SAT 93
[2017-05-22] MEDS ORDERED: MORPHINE SULFATE 4 MG/ML INJ IV PUSH PRN (23:30)
[2017-05-22] MEDS ORDERED: INSULIN DETEMIR 100 UNITS/ML VIAL SQ SCH (23:30)
[2017-05-22] MEDS ORDERED: ACETAMINOPHEN/HYDROcodone 325 MG/7.5 MG TAB PO PRN (23:30)
[2017-05-22] MEDS ORDERED: ACETAMINOPHEN/HYDROcodone 325 MG/5 MG TAB PO PRN (23:30)
--- NOTE | 2017-05-22 23:34 | HHI.HP ---
[facility] Admission Diagnosis Abdominal pain, Acute cholecystitis Diagnoses: Travel History International Travel<30 Days: No Contact w/Intl Traveler <30 Da: No Traveled to Known Affected Are: No History of Present Illness 71-year-old male with diabetes mellitus, CAD status post CABG, PCI January 2017, recent bilateral iliac stents placed in April of this year, with complication of bilateral retroperitoneal bleed. Patient presents with 2 day history of constant sharp nonradiating right upper quadrant pain which is worse with a deep breath. He reports low-grade fevers, some nausea. Denies any shortness of breath. Denies any diarrhea or constipation. Patient had recent presentation on 05/17 with epigastric pain, found to have pancreatitis which resolved. Patient was discharged on 05/19, presents again on 05/20 with similar epigastric pain. Workup at that time did show some gallbladder wall thickening, however patient did not have right upper quadrant pain at that time, and he was discharged home. Review of Systems Except as stated in HPI: all other systems reviewed are Neg Past Family Social History Past Medical History Diabetes type 2 History of CAD status PCI of the left circumflex in July 2016 Bilateral iliac stenting recently 05/11/17 Hypertension Hyperlipidemia Diabetes type 2 insulin-requiring Hypothyroidism B-12 deficiency Past Surgical History Left carotid endarterectomy in 2005 CABG in 2002 Bilateral cataract surgery 5 years ago History of tonsillectomy Reported Medications Reported Meds & Active Scripts Active Plavix (Clopidogrel Bisulfate) 75 Mg Tab 75 Mg PO DAILY Reported Vitamin C (Ascorbic Acid) 250 Mg Tab 250 Mg PO Rosuvastatin (Rosuvastatin Calcium) 20 Mg Tab 10 Mg PO HS Lisinopril 40 Mg Tab 40 Mg PO DAILY Metformin ER (Metformin HCl) 1,000 Mg Porsha 1,000 Mg PO DAILY With evening meal Cyanocobalamin Inj (Cyanocobalamin) 1,000 Mcg/Ml Inj 1,000 Mcg IM Q30D Nitroglycerin SL (Nitroglycerin) 0.4 Mg Subl 0.4 Mg SL DIRECTED PRN ONE TABLET UNDER THE TONGUE NEEDED FOR CHEST PAIN, MAY REPEAT EVERY FIVE MINUTES FOR A TOTAL OF 3 DOSES OR CALL 911 IF NO RELIEF Levothyroxine (Levothyroxine Sodium) 25 Mcg Tab 25 Mcg PO DAILY Gabapentin 300 Mg Cap 300 Mg PO BID Amlodipine (Amlodipine Besylate) 5 Mg Tab 5 Mg PO DAILY Metoprolol Tartrate 50 Mg Tab 50 Mg PO BID Aspirin 81 Mg Chew 81 Mg CHEW DAILY Magnesium Oxide 400 Mg Cap 1 Cap PO DAILY Novolin 70-30 Inj (Insulin Human Isoph/Insulin Regular) 1,000 Unit/10 Ml Vial 50 Units SQ HS Novolin 70-30 Inj (Insulin Human Isoph/Insulin Regular) 1,000 Unit/10 Ml Vial 66 Units SQ DAILY Allergies: Coded Allergies: No Known Allergies (Unverified , 05/21/17) Family History Reviewed with the patient and found to be currently noncontributory. Social History Rare cigar use. Nondrinker. Denies illicit drugs. Physical Exam Vital Signs Vital Signs Date Time Temp Pulse Resp B/P (MAP) Pulse Ox O2 Delivery O2 Flow Rate FiO2 05/22/17 22:35 74 18 188/78 (114) 99 05/22/17 20:59 78 20 169/64 (99) 96 Room Air 05/22/17 20:54 79 18 160/69 (99) 95 Room Air 05/22/17 20:35 99.2 86 18 204/81 (122) 96 Physical Exam GENERAL: This is a well-nourished, well-developed patient, appears in pain. SKIN: No rashes, ecchymoses or lesions. Cool and dry. HEAD: Atraumatic. Normocephalic. No temporal or scalp tenderness. EYES: Pupils equal round and reactive. Extraocular motions intact. No scleral icterus. No injection or drainage. ENT: Nose without bleeding, purulent drainage or septal hematoma. Throat without erythema, tonsillar hypertrophy or exudate. Uvula midline. Airway patent. NECK: Trachea midline. No JVD or lymphadenopathy. Supple, nontender, no meningeal signs. CARDIOVASCULAR: Regular rate and rhythm without murmurs, gallops, or rubs. RESPIRATORY: Clear to auscultation. Breath sounds equal bilaterally. No wheezes , rales, or rhonchi. GASTROINTESTINAL: Abdomen soft, nondistended. No hepato-splenomegaly, or palpable masses. No guarding. Patient with right upper quadrant tenderness to moderate palpation. Patient with marked pleuritic pain and apprehension upon inspiration. MUSCULOSKELETAL: Extremities without clubbing, cyanosis, or edema. No joint tenderness, effusion, or edema noted. No calf tenderness. Negative Homans sign bilaterally. NEUROLOGICAL: Awake and alert. Cranial nerves II through XII intact. Motor and sensory grossly within normal limits. Five out of 5 muscle strength in all muscle groups. Normal speech. Laboratory Laboratory Tests Test 05/22/17 20:55 White Blood Count 10.4 Red Blood Count 2.99 Hemoglobin 9.0 Hematocrit 26.8 Mean Corpuscular Volume 89.8 Mean Corpuscular Hemoglobin 30.2 Mean Corpuscular Hemoglobin Concent 33.6 Red Cell Distribution Width 14.1 Platelet Count 217 Mean Platelet Volume 7.8 Neutrophils (%) (Auto) 75.5 Lymphocytes (%) (Auto) 11.6 Monocytes (%) (Auto) 10.8 Eosinophils (%) (Auto) 1.4 Basophils (%) (Auto) 0.7 Neutrophils # (Auto) 7.9 Lymphocytes # (Auto) 1.2 Monocytes # (Auto) 1.1 Eosinophils # (Auto) 0.1 Basophils # (Auto) 0.1 CBC Comment DIFF FINAL Differential Comment Prothrombin Time 11.4 Prothromb Time International Ratio 1.0 Activated Partial Thromboplast Time 29.3 Blood Urea Nitrogen 11 Creatinine 0.85 Random Glucose 173 Total Protein 6.9 Albumin 2.9 Calcium Level 8.8 Alkaline Phosphatase 114 Aspartate Amino Transf (AST/SGOT) 18 Alanine Aminotransferase (ALT/SGPT) 23 Total Bilirubin 0.8 Sodium Level 136 Potassium Level 3.8 Chloride Level 104 Carbon Dioxide Level 24.8 Anion Gap 7 Estimat Glomerular Filtration Rate 89 Troponin I LESS THAN 0.02 C-Reactive Protein 16.00 Lipase 95 Result Diagram: 05/22/17205405/22/172054 Caprini VTE Risk Assessment Caprini VTE Risk Assessment: Mod/High Risk (score >= 2) Caprini Risk Assessment Model Point Value = 1 Point Value = 2 Point Value = 3 Point Value = 5 Age 41-60 Minor surgery BMI > 25 kg/m2 Swollen legs Varicose veins or History of unexplained or recurrent spontaneous Oral contraceptives or hormone replacement Sepsis (< 1 month) Serious lung disease, including pneumonia (< 1 month) Abnormal pulmonary function Acute myocardial infarction Congestive heart failure (< 1 month) History of inflammatory bowel disease Medical patient at bed rest Age 61-74 Arthroscopic surgery Major open surgery (> 45 min) Laparoscopic surgery (> 45 min) Malignancy Confined to bed (> 72 hours) Immobilizing plaster cast Central venous access Age >= 75 History of VTE Family history of VTE Factor V Leiden Prothrombin [id number] Lupus anticoagulant Anticardiolipin antibodies Elevated serum homocysteine Heparin-induced thrombocytopenia Other congenital or acquired thrombophilia Stroke (< 1 month) Elective arthroplasty Hip, pelvis, or leg fracture Acute spinal cord injury (< 1 month) Prophylaxis Regimen Total Risk Factor Score Risk Level Prophylaxis Regimen 0-1 Low Early ambulation 2 Moderate Order ONE of the following: *Sequential Compression Device (SCD) *Heparin 5000 units SQ BID 3-4 Higher Order ONE of the following medications: *Heparin 5000 units SQ TID *Enoxaparin/Lovenox 40 mg SQ daily (WT < 150 kg, CrCl > 30 mL/min) *Enoxaparin/Lovenox 30 mg SQ daily (WT < 150 kg, CrCl > 10-29 mL/min) *Enoxaparin/Lovenox 30 mg SQ BID (WT < 150 kg, CrCl > 30 mL/min) AND/OR *Sequential Compression Device (SCD) 5 or more Highest Order ONE of the following medications: *Heparin 5000 units SQ TID (Preferred with Epidurals) *Enoxaparin/Lovenox 40 mg SQ daily (WT < 150 kg, CrCl > 30 mL/min) *Enoxaparin/Lovenox 30 mg SQ daily (WT < 150 kg, CrCl > 10-29 mL/min) *Enoxaparin/Lovenox 30 mg SQ BID (WT < 150 kg, CrCl > 30 mL/min) AND *Sequential Compression Device (SCD) Assessment and Plan Assessment and Plan //Right upper quadrant pain //Pleuritic right lower chest pain. //Acute cholecystitis //Nausea. = Recent imaging with gallbladder ultrasound showing wall thickening. -Due to pleuritic nature of patient's pain, we'll order CT pulmonary angiogram -Antiemetics. Narcotics for pain control. We'll start antibiotics for suspected cholecystitis. General surgery consult ordered and pending. Due to recent stenting, surgery would be unadvisable at this time. //Coronary artery disease status post CABG, PCI of left circumflex in January 2017 //Peripheral artery disease status post bilateral stenting. //Hypertension -Continue aspirin, Plavix, beta salas, SHEYLA inhibitor statin. //Recent Episode of pancreatitis -Lipase within normal limits on this admission. Could be secondary to gallstone which passed at the time. Continue to monitor. //Diabetes mellitus. Insulin-dependent. -DM diet. Continue sliding scale insulin. /Anemia. Hemoglobin at recent baseline. No signs of bleeding. //Hypothyroidism. Chronic. Continue home Synthroid. Discussed Condition With Patient, nurse, ED physician. Physician Certification 2 Midnight Certification Type: Admission for Inpatient Services Order for Inpatient Services The services are ordered in accordance with Medicare regulations or non- Medicare payer requirements, as applicable. In the case of services not specified as inpatient-only, they are appropriately provided as inpatient services in accordance with the 2-midnight benchmark. Estimated LOS (days): 2 days is the estimated time the patient will need to remain in the hospital, assuming treatment plan goals are met and no additional complications. Post-Hospital Plan: Not yet determined Gene Romero MD May 22, 2017 23:34
[2017-05-23] MEDS ORDERED: IOHEXOL 350 MG/ML 10 ML VIAL (for RAD DIAG) IVCONTRAST ONE (00:47)
--- NOTE | 2017-05-23 01:03 | RADRPT ---
EXAM DATE/TIME: 05/23/2017 00:34 [facility] COMPARISON: CT ABDOMEN & PELVIS W CONTRAST, May 21, 2017, 1:38. INDICATIONS : Short of breath. Evaluate for embolism. IV CONTRAST: 80 cc Omnipaque 350 (iohexol) IV RADIATION DOSE: 15.31 CTDIvol (mGy) MEDICAL HISTORY : Hypertension. Diverticulitis. Pancreatitis.GERD. CAD. SURGICAL HISTORY : CABG Cardiac cath. ENCOUNTER: Initial ACUITY: 1 day PAIN SCALE: 0/10 LOCATION: chest TECHNIQUE: Volumetric scanning of the chest was performed using a pulmonary embolism protocol MIP images were re constructed. Using automated exposure control and adjustment of the mA and/or kV according to patien t size, radiation dose was kept as low as reasonably achievable to obtain optimal diagnostic quality images. DICOM format image data is available electronically for review and comparison. Follow-up recommendations for detected pulmonary nodules are based at a minimum on nodule size and pa tient risk factors according to Fleischner Society Guidelines. FINDINGS: PULMONARY ARTERIES: No filling defects are seen in the pulmonary arteries through the segmental level. LUNGS: Mild right lung base atelectasis associated with small right effusion. Calcified right middle lobe gr anuloma PLEURAE: Small right pleural effusion. MEDIASTINUM: Mild prominence of mediastinal lymph nodes including a densely calcified precarinal node. Slight prom inence of right hilar chantal tissue. MUSCULOSKELETAL: Within normal limits for patient age. MISCELLANEOUS: Cirrhotic liver appearance with atrophy of the right lobe and enlargement of the left lobe and caudat e. Vicariously excreted contrast present in the gallbladder. Mild nonspecific gallbladder wall thicke brenna. CONCLUSION: No evidence of pulmonary embolism. Nonspecific enlargement of mediastinal and right hilar lymph nodes . Evidence of prior granulomatous disease. Solo Phelan MD on May 23, 2017 at 0:54 Board Certified Radiologist. This report was verified electronically.
[2017-05-23] MEDS: MORPHINE SULFATE 4 MG/ML INJ IV PUSH PRN ×3 (01:11→21:28)
[2017-05-23 04:00] VITALS: BP 149/68; PULSE 77; RESP 20; TEMP 97.7; O2SAT 93
[2017-05-23] MEDS: LEVOTHYROXINE SODIUM 25 MCG TAB PO SCH (04:51)
[2017-05-23] MEDS: PIPERACIL-TAZO 3.375 GM PREMIX 50 ML IV SCH ×4 (04:53→21:28)
[2017-05-23 06:10] LABS: AUTOMATED NEUTROPHIL # 6.3 TH/MM3 (1.8-7.7); BASOPHIL % 0.3 % (0.0-2.0); EOSINOPHIL # 0.1 TH/MM3 (0-0.4); EOSINOPHIL % 1.3 % (0.0-4.0); HEMATOCRIT 23.8 % (39.0-51.0); HEMO FLAGS DIFF FINAL; LYMPH % 19.9 % (9.0-44.0); LYMPHOCYTE # 1.9 TH/MM3 (1.0-4.8); MEAN CELL VOLUME 89.8 FL (80.0-100.0); MEAN CORPUSCULAR HEMOGLOBIN 31.2 PG (27.0-34.0); MEAN CORPUSCULAR HGB CONC 34.8 % (32.0-36.0); NEUT % 67.5 % (16.0-70.0); PLATELET COUNT 185 TH/MM3 (150-450); RED BLOOD COUNT 2.65 MIL/MM3 (4.50-5.90); RED CELL DISTRIBUTION WIDTH 14.5 % (11.6-17.2); WHITE BLOOD COUNT 9.4 TH/MM3 (4.0-11.0)
[2017-05-23 06:46] LABS: ANION GAP 5 MEQ/L (5-15); BICARBONATE 26.6 MEQ/L (21.0-32.0); BLOOD UREA NITROGEN 9 MG/DL (7-18); CHLORIDE 107 MEQ/L (98-107); GLOMERULAR FILTRATION RATE 91 ML/MIN (>89); POTASSIUM 3.4 MEQ/L (3.5-5.1); SODIUM (NA) 139 MEQ/L (136-145)
[2017-05-23 06:48] LABS: AST (GOT) 15 U/L (15-37)
[2017-05-23 06:57] LABS: ALKALINE PHOSPHATASE 100 U/L (45-117); ALT (GPT) 20 U/L (12-78); TOTAL BILIRUBIN ADULT 0.8 MG/DL (0.2-1.0)
[2017-05-23 08:00] VITALS: BP 167/72; PULSE 73; RESP 17; TEMP 98; O2SAT 91
[2017-05-23] MEDS: INSULIN ASPART SUPPLEMENTAL SCALE SQ SCH ×4 (08:00→20:23)
[2017-05-23] MEDS ORDERED: amLODIPine BESYLATE 5 MG TAB PO SCH (09:00)
[2017-05-23] MEDS: INSULIN DETEMIR 100 UNITS/ML VIAL SQ SCH ×2 (09:00→20:23)
[2017-05-23] MEDS: SODIUM CHLORIDE 0.9% FLUSH 10 ML FLUSH IV FLUSH SCH ×2 (09:00→20:23)
[2017-05-23] MEDS: ASPIRIN 81 MG CHEW TAB CHEW SCH (09:35)
[2017-05-23] MEDS: GABAPENTIN 300 MG CAP PO SCH ×2 (09:35→20:23)
[2017-05-23] MEDS: MAGNESIUM OXIDE 400 MG TAB PO SCH (09:35)
[2017-05-23] MEDS: METOPROLOL TARTRATE 50 MG TAB PO SCH ×2 (09:35→20:23)
[2017-05-23] MEDS: CLOPIDOGREL 75 MG TAB PO SCH (09:35)
[2017-05-23] MEDS: LISINOPRIL 20 MG TAB PO SCH (09:36)
[2017-05-23 12:00] VITALS: BP 174/74; PULSE 64; RESP 17; TEMP 96.7; O2SAT 96
[2017-05-23] MEDS: ONDANSETRON HCL 4 MG/2 ML VIAL IVP PRN ×2 (12:04→18:04)
--- NOTE | 2017-05-23 13:26 | EKG ---
Date Performed: 05/22/2017 Time Performed: 20:59:37 PTAGE: 72 years EKG: Sinus rhythm WITH SHORT MA INTERVAL RIGHT BUNDLE BRANCH BLOCK ABNORMAL ECG PREVIOUS TRACING : 05/21/2017 02.00 Compared to prior tracing no significant change DOCTOR: Dick Madden Interpretating Date/Time 05/23/2017 13:23:45
[2017-05-23] MEDS ORDERED: LORazepam 2 MG/ML VIAL ONE (14:31)
--- NOTE | 2017-05-23 15:27 | PD.RAD ---
Post Procedure Progress Note Pre Procedure Diagnosis: (1) Acute cholecystitis Post Procedure Diagnosis: (1) Acute cholecystitis Procedure Date: May 23, 2017 Supervising Radiologist: Dick Harper Proceduralist/Assist: Lashay Aguayo, RT(R)(CV), RT Torito(R) Anesthesia: Local Plan of Activity Patient to Unit: Nursing Unit Patient Condition: Good See PACS Report for procedural detail/treatment Drainage Procedure Procedure 1 Imaging Guidance: Fluoroscopy Procedure Type: Cholecystostomy Procedure: Placement Drainage: Stinnett drainage Fluid Description: Thomas Strickland David B. MD May 23, 2017 15:27
[2017-05-23] MEDS ORDERED: IOHEXOL 350 MG/ML 50 ML BTL (for RAD DIAG) OTHER ONE (15:39)
[2017-05-23 16:00] VITALS: BP 154/74; PULSE 85; RESP 17; TEMP 96.4; O2SAT 93
--- NOTE | 2017-05-23 16:36 | RADRPT ---
EXAM DATE/TIME: 05/23/2017 14:50 [facility] COMPARISON: No previous studies available for comparison. INDICATIONS : Patient with acute cholecystitis,jaundice. MEDICAL HISTORY : 1. DM 2. cad 3 HTN 4.Hyperlipidemia SURGICAL HISTORY : 1. Left carotid endarectomy 2. CABG 3. tonsillectomy 4. cataracts ENCOUNTER: Initial ACUITY: 2 days PAIN SCORE: 2/10 LOCATION: Right upper quadrant FLUORO TIME: 2.4 minutes IMAGE SERIES: 1 SEDATION TIME: 30 minutes CONTRAST: 10 cc Omnipaque (iohexol) 350 MEDICATION(S): 1.) 150 mcg fentanyl (Sublimaze) IV 2.) 1.0 mg lorazepam (Ativan) IV DEVICE(S): 1.) 8 Serbian locking Skater catheter PROCEDURE : 1. Ultrasound guided puncture of the gallbladder. 2. Percutaneous cholangiogram. 3. Percutaneous cholecystostomy tube placement. 4. Conscious sedation with continuous EKG and oximetry monitoring. The risks, benefits and alternatives to the procedure were explained and verbal and written consent w as obtained. The site was prepped in sterile fashion. Full sterile technique was used, including ca p, mask, sterile gloves and gown and a large sterile sheet. Hand hygiene and 2% chlorhexidine and/or betadine/alcohol prep was utilized per protocol for cutaneous antisepsis. Sterile gel and sterile p robe cover were utilized for ultrasound guidance. The skin and subcutaneous tissues were infiltrated with local anesthetic solution. With ultrasound and fluoroscopic guidance the gallbladder was punctured with a micropuncture set and a 4 Serbian dilator was placed. Injection of positive contrast demonstrates position within the gallb ladder. A 0.035 guidewire was placed within the gallbladder lumen and dilatation was performed to ac cept the prescribed catheter. Thick viscus dark bile was retrieved from the catheter. Conscious sedation was performed with the prescribed dosages and duration as above in the presence of an independent trained radiology nurse to assist in the monitoring of the patient. EKG and oximetry remained stable throughout the procedure. The patient tolerated the procedure well and there were n o complications. The patient was sent to post anesthesia recovery in stable condition. CONCLUSION: Uncomplicated percutaneous cholecystostomy as above. Dick Harper MD on May 23, 2017 at 16:33 Board Certified Radiologist. This report was verified electronically.
--- NOTE | 2017-05-23 17:35 | HHI.PR ---
Subjective Remarks Resting in bed Feeling less pressure in his abdomen Status post cholecystostomy Objective Vitals Vital Signs Date Time Temp Pulse Resp B/P (MAP) Pulse Ox O2 Delivery O2 Flow Rate FiO2 05/23/17 16:00 96.4 85 17 154/74 (100) 93 05/23/17 12:00 96.7 64 17 174/74 (107) 96 05/23/17 08:00 98.0 73 17 167/72 (103) 91 05/23/17 04:00 97.7 77 20 149/68 (95) 93 05/22/17 23:00 99.7 72 20 169/74 (105) 93 05/22/17 22:35 74 18 188/78 (114) 99 05/22/17 20:59 78 20 169/64 (99) 96 Room Air 05/22/17 20:54 79 18 160/69 (99) 95 Room Air 05/22/17 20:35 99.2 86 18 204/81 (122) 96 I/O 05/22/17 05/22/17 05/22/17 05/23/17 05/23/17 05/23/17 07:00 15:00 23:00 07:00 15:00 23:00 Intake Total 240 ml 50 ml Balance 240 ml 50 ml Intake Oral 240 ml IV Total 50 ml # Voids 2 # Bowel Movements 0 Result Diagram: 05/23/1753005/23/17530 Objective Remarks GENERAL: This is a well-nourished, well-developed patient, in no apparent distress. SKIN: No rashes, warm and dry HEAD: Atraumatic. Normocephalic. EYES: Pupils equal round and reactive. Extraocular motions intact. No scleral icterus. ENT: Nose without bleeding, or drainage, Airway patent. NECK: Trachea midline. Supple CARDIOVASCULAR: Regular rate and rhythm without murmurs, gallops, or rubs. RESPIRATORY: Fair air entry bilaterally. No wheezes, rales, or rhonchi. GASTROINTESTINAL: Abdomen soft, non-tender, nondistended. Positive bowel sounds , biliary drain are in place MUSCULOSKELETAL: Extremities without clubbing, cyanosis, or edema. Pedal pulses appreciated NEUROLOGICAL: Awake and alert. Moves all extremity. Normal speech.no focal neurological deficit A/P Assessment and Plan //Right upper quadrant pain //Pleuritic right lower chest pain. //Acute cholecystitis //Nausea. = Recent imaging with gallbladder ultrasound showing wall thickening. -Due to pleuritic nature of patient's pain, we'll order CT pulmonary angiogram -Antiemetics. Narcotics for pain control. Continue antibiotics appreciate General surgery consult appreciated status post cholecystostomy due to recent stenting, surgery would be unadvisable at this time. //Coronary artery disease status post CABG, PCI of left circumflex in January 2017 //Peripheral artery disease status post bilateral stenting. //Hypertension -Continue aspirin, Plavix, beta salas, SHEYLA inhibitor statin. //Recent Episode of pancreatitis -Lipase within normal limits on this admission. Could be secondary to gallstone which passed at the time. Continue to monitor. //Diabetes mellitus. Insulin-dependent. -DM diet. Continue sliding scale insulin. /Anemia. Hemoglobin at recent baseline. No signs of bleeding. //Hypothyroidism. Chronic. Continue home Synthroid. Jessica Feldman MD May 23, 2017 17:35
--- NOTE | 2017-05-23 18:17 | MB ---
cc: DESTINEE WANG MD DATE OF CONSULTATION 05/23/2017 REASON FOR CONSULTATION Acute cholecystitis, right upper quadrant abdominal pain. HISTORY OF PRESENT ILLNESS The patient is 71-year-old male multiple medical issues including diabetes, coronary artery disease status post CABG. Also bilateral iliac stent placement in April, recent retroperitoneal bleed, stable. The patient presented with a couple of day history of sharp right upper quadrant pain. He states the pain started somewhat suddenly and continued to increase. Yesterday the pain was noted 04/03 prompting the patient coming back to the hospital. The patient stated the pain is sharp, located in the right upper quadrant, some radiation to the epigastrium, worse with movement, better with lying still. The patient did have a recent hospital admission with findings of pancreatitis with a lipase of 1495 which resolved within several days. The patient also had hyperbilirubinemia at the time 2.5. The patient did have ultrasound on 05/21/2017 showing thickened gallbladder wall, possible sludge. No evidence of stones. The patient was discharged due to improvement, however again pain recurred prompting the patient to return to the emergency department. The patient has been afebrile. Denies any change in bowel habits. PAST MEDICAL HISTORY 1. Diabetes. 2. Coronary artery disease status post stent left circumflex July 2016. 3. Bilateral iliac stents last April 2017. 4. Hypertension. 5. Hyperlipidemia. 6. Hypothyroidism. 7. Hepatitis C, resolved. 8. Retroperitoneal bleed. PAST SURGICAL HISTORY 1. Left carotid endarterectomy 2005. 2. CABG 2002. 3. Bilateral cataract surgery 5 years ago. 4. Tonsillectomy. 5. Bilateral iliac stent placement. 6. Coronary artery stenting. MEDICATIONS See EMR, Plavix. ALLERGIES NO KNOWN DRUG ALLERGIES. SOCIAL HISTORY Denies smoking, EtOH or IVDA. FAMILY HISTORY Denies hypertension or diabetes. REVIEW OF SYSTEMS GENERAL: The patient denies fevers or chills. HEENT: Denies eye pain, ear pain. NECK: Denies swelling or pain. LUNGS: Denies cough or wheeze. CARDIOVASCULAR: Denies chest pain. ABDOMEN: Complained of abdominal pain. Denies severe pain. Complains of nausea, vomiting. GENITOURINARY: Denies dysuria, hematuria. ENDOCRINE: Denies polyuria, polydipsia, diabetes, hypothyroid. PSYCHIATRIC: Good insight, good judgment. PHYSICAL EXAMINATION GENERAL: The patient no acute distress. VITAL SIGNS: Temperature 99.7, pulse 72, respirations 28, blood pressure 169/74, saturation 93%. HEAD, EARS, EYES, NOSE, AND THROAT: PERRLA. Pupils equal, round and reactive. Normocephalic, atraumatic. NECK: Supple. Trachea midline. Well-healed incisional scar. LUNGS: Bilateral expansion. Clear. HEART: S1-S2 regular. ABDOMEN: Soft, positive tenderness to palpation right upper quadrant. No rebound or guarding. No peritoneal signs. EXTREMITIES: Warm, well-perfused. INTEGUMENTARY: No obvious masses or lesions. PSYCHIATRIC: Appropriate mood and affect. NEUROLOGIC: GCS 15. LABORATORY AND DIAGNOSTIC DATA WBC 10.4, hemoglobin 9, hematocrit 26.8, platelets 217. Sodium 136, potassium 3.8, BUN is 11, creatinine 0.85, bilirubin 0.8, AST 18, ALT 23, albumin 2.9, lipase 95. INR 1.0. PT 11.4, PTT 29.3. IMAGING Gallbladder ultrasound reviewed by myself showing some gallbladder wall thickening 05/21/2017. No evidence of significant stones. Questionable sludge. CT scan no evidence of PE, nonspecific mediastinal adenopathy. ASSESSMENT The patient is a 72-year-old male multiple medical issues, recent iliac stent, recent cardiac stent on Plavix presents with history of the recent pancreatitis and right upper quadrant pain. PLAN After full workup the patient with above-named issues including concern for cholecystitis. At this point the patient is a high surgical risk and would attempt to defer surgery if possible. The patient will need a cholecystostomy tube for medical necessity. Discussed with interventional radiology for possible intervention. Discussed with the patient in detail, states understanding and agrees. Continue Zosyn, IV fluids, pain control. The patient was nausea, vomiting while currently in the room. We will give Zofran and possible Phenergan if no relief with this. Thank you for the consultation. MD SAMIR Huston/MARK /4:14 PM /6:00 PM
[2017-05-23 20:00] VITALS: BP 170/68; PULSE 75; RESP 18; TEMP 97.8; O2SAT 93
[2017-05-23] MEDS: ATORVASTATIN 20 MG TAB PO SCH (20:23)
[2017-05-23] MEDS: SODIUM CHLOR 0.9% 1000 ML INJ 1,000 ML IV SCH (20:24)
[2017-05-24] VITALS (7 sets, daily range): BP systolic 124–185; BP diastolic 62–77; PULSE 67–93; RESP 16–20; TEMP 97–98.7; O2SAT 90–98
[2017-05-24] MEDS: PIPERACIL-TAZO 3.375 GM PREMIX 50 ML IV SCH ×4 (05:36→20:39)
[2017-05-24] MEDS: LEVOTHYROXINE SODIUM 25 MCG TAB PO SCH (05:56)
[2017-05-24] MEDS: INSULIN ASPART SUPPLEMENTAL SCALE SQ SCH ×4 (08:00→20:45)
[2017-05-24] MEDS: SODIUM CHLORIDE 0.9% FLUSH 10 ML FLUSH IV FLUSH SCH ×2 (09:00→20:39)
[2017-05-24] MEDS: SODIUM CHLOR 0.9% 1000 ML INJ 1,000 ML IV SCH ×2 (09:42→20:39)
[2017-05-24] MEDS: LISINOPRIL 20 MG TAB PO SCH (09:43)
[2017-05-24] MEDS: METOPROLOL TARTRATE 50 MG TAB PO SCH ×2 (09:44→20:38)
[2017-05-24] MEDS: CLOPIDOGREL 75 MG TAB PO SCH (09:44)
[2017-05-24] MEDS: MAGNESIUM OXIDE 400 MG TAB PO SCH (09:44)
[2017-05-24] MEDS: GABAPENTIN 300 MG CAP PO SCH ×2 (09:44→20:38)
[2017-05-24] MEDS: ASPIRIN 81 MG CHEW TAB CHEW SCH (09:45)
[2017-05-24] MEDS: INSULIN DETEMIR 100 UNITS/ML VIAL SQ SCH ×2 (09:54→20:45)
--- NOTE | 2017-05-24 13:09 | HHI.PR ---
Subjective Subjective Notes Resting in bed at bedside Reports he is feeling better today Objective Vitals/I&O Vital Signs Date Time Temp Pulse Resp B/P (MAP) Pulse Ox O2 Delivery O2 Flow Rate FiO2 05/24/17 12:00 97.6 75 16 152/69 (96) 92 05/22/17 20:59 Room Air Cardiovascular: Regular Lungs: Clear Abdomen: Other (cholecystostomy tube in place---dark bile drainage in gravity bag ) Extremities: No edema A/P Assessment and Plan 72 year old male with acute cholecystics s/p cholecystostomy tube placement -Continue regular diet -Continue Zosyn; likely transition to Augmentin in the next day or so -DV IVF -OOB and mobilize Attending Statement Patient seen at bedside S/p zurdo tube doing better transition to po abx d/c planning Attestation The exam, history, and the medical decision-making described in the above note were completed with the assistance of the mid-level provider. I reviewed and agree with the findings presented. I attest that I had a [id number] encounter with the patient on the same day, and personally performed and documented my assessment and findings in the medical record. Maribel Angel May 24, 2017 13:09 Klever Merlos MD May 24, 2017 21:57
[2017-05-24] MEDS: ATORVASTATIN 20 MG TAB PO SCH (20:38)
--- NOTE | 2017-05-24 21:35 | HHI.PR ---
Subjective Remarks Resting comfortably in bed No event overnight Denied chest and or short of breath No fever or chills Objective Vitals Vital Signs Date Time Temp Pulse Resp B/P (MAP) Pulse Ox O2 Delivery O2 Flow Rate FiO2 05/24/17 16:00 98.3 74 17 169/73 (105) 90 05/24/17 16:00 97.0 70 17 124/77 (93) 98 05/24/17 12:00 97.6 75 16 152/69 (96) 92 05/24/17 08:00 98.6 79 17 160/70 (100) 91 05/24/17 04:00 98.7 83 18 157/69 (98) 91 05/24/17 00:00 97.6 93 18 150/69 (96) 91 I/O 05/23/17 05/23/17 05/23/17 05/24/17 05/24/17 05/24/17 07:00 15:00 23:00 07:00 15:00 23:00 Intake Total 240 ml 50 ml 1050 ml 50 ml 1050 ml 700 ml Output Total 800 ml 600 ml 1300 ml Balance 240 ml 50 ml 250 ml -550 ml 1050 ml -600 ml Intake Oral 240 ml 0 ml 700 ml IV Total 50 ml 1050 ml 50 ml 1050 ml Output Urine Total 800 ml 450 ml 1200 ml Drainage Total 150 ml 100 ml # Voids 2 # Bowel Movements 0 0 0 Result Diagram: 05/23/1753005/23/17530 Objective Remarks GENERAL: This is a well-nourished, well-developed patient, in no apparent distress. SKIN: No rashes, warm and dry HEAD: Atraumatic. Normocephalic. EYES: Pupils equal round and reactive. Extraocular motions intact. No scleral icterus. ENT: Nose without bleeding, or drainage, Airway patent. NECK: Trachea midline. Supple CARDIOVASCULAR: Regular rate and rhythm without murmurs, gallops, or rubs. RESPIRATORY: Fair air entry bilaterally. No wheezes, rales, or rhonchi. GASTROINTESTINAL: Abdomen soft, non-tender, nondistended. Positive bowel sounds , biliary drain are in place MUSCULOSKELETAL: Extremities without clubbing, cyanosis, or edema. Pedal pulses appreciated NEUROLOGICAL: Awake and alert. Moves all extremity. Normal speech.no focal neurological deficit A/P Assessment and Plan //Right upper quadrant pain //Pleuritic right lower chest pain. //Acute cholecystitis status post cholecystostomy //Nausea. = Recent imaging with gallbladder ultrasound showing wall thickening. -Due to pleuritic nature of patient's pain, we'll order CT pulmonary angiogram -Antiemetics. Narcotics for pain control. Continue antibiotics appreciate General surgery consult appreciated status post cholecystostomy due to recent stenting, surgery would be unadvisable at this time. //Coronary artery disease status post CABG, PCI of left circumflex in January 2017 //Peripheral artery disease status post bilateral stenting. //Hypertension optimized -Continue aspirin, Plavix, beta salas, SHEYLA inhibitor statin. Increase amlodipine //Recent Episode of pancreatitis -Lipase within normal limits on this admission. Could be secondary to gallstone which passed at the time. Continue to monitor. //Diabetes mellitus. Insulin-dependent. -DM diet. Continue sliding scale insulin. /Anemia. Hemoglobin at recent baseline. No signs of bleeding. //Hypothyroidism. Chronic. Continue home Synthroid. Jessica Feldman MD May 24, 2017 21:35
[2017-05-25] VITALS (8 sets, daily range): BP systolic 120–186; BP diastolic 60–75; PULSE 64–70; RESP 16–20; TEMP 96.8–98; O2SAT 92–96
[2017-05-25] MEDS: PIPERACIL-TAZO 3.375 GM PREMIX 50 ML IV SCH ×3 (05:06→16:07)
[2017-05-25] MEDS: LEVOTHYROXINE SODIUM 25 MCG TAB PO SCH (05:06)
[2017-05-25] MEDS: INSULIN ASPART SUPPLEMENTAL SCALE SQ SCH ×2 (08:00→12:43)
[2017-05-25] MEDS: GABAPENTIN 300 MG CAP PO SCH (08:04)
[2017-05-25] MEDS: ASPIRIN 81 MG CHEW TAB CHEW SCH (08:04)
[2017-05-25] MEDS: CLOPIDOGREL 75 MG TAB PO SCH (08:04)
[2017-05-25] MEDS: LISINOPRIL 20 MG TAB PO SCH (08:04)
[2017-05-25] MEDS: MAGNESIUM OXIDE 400 MG TAB PO SCH (08:05)
[2017-05-25] MEDS: INSULIN DETEMIR 100 UNITS/ML VIAL SQ SCH (08:05)
[2017-05-25] MEDS: METOPROLOL TARTRATE 50 MG TAB PO SCH (08:05)
[2017-05-25] MEDS: SODIUM CHLORIDE 0.9% FLUSH 10 ML FLUSH IV FLUSH SCH (08:08)
[2017-05-25 08:19] LABS: AUTOMATED NEUTROPHIL # 3.6 TH/MM3 (1.8-7.7); BASOPHIL % 0.6 % (0.0-2.0); EOSINOPHIL # 0.2 TH/MM3 (0-0.4); EOSINOPHIL % 3.2 % (0.0-4.0); HEMATOCRIT 29.1 % (39.0-51.0); HEMO FLAGS DIFF FINAL; LYMPH % 22.2 % (9.0-44.0); LYMPHOCYTE # 1.3 TH/MM3 (1.0-4.8); MEAN CELL VOLUME 90.3 FL (80.0-100.0); MEAN CORPUSCULAR HEMOGLOBIN 30.5 PG (27.0-34.0); MEAN CORPUSCULAR HGB CONC 33.8 % (32.0-36.0); MONO % 10.5 % (0.0-8.0); NEUT % 63.5 % (16.0-70.0); PLATELET COUNT 243 TH/MM3 (150-450); RED BLOOD COUNT 3.22 MIL/MM3 (4.50-5.90); RED CELL DISTRIBUTION WIDTH 14.1 % (11.6-17.2); WHITE BLOOD COUNT 5.7 TH/MM3 (4.0-11.0)
[2017-05-25 08:40] LABS: ANION GAP 9 MEQ/L (5-15); AST (GOT) 15 U/L (15-37); BICARBONATE 24.8 MEQ/L (21.0-32.0); BLOOD UREA NITROGEN 10 MG/DL (7-18); CHLORIDE 106 MEQ/L (98-107); GLOMERULAR FILTRATION RATE 86 ML/MIN (>89); SODIUM (NA) 140 MEQ/L (136-145)
[2017-05-25 08:41] LABS: ALT (GPT) 17 U/L (12-78)
[2017-05-25 08:43] LABS: ALKALINE PHOSPHATASE 107 U/L (45-117); TOTAL BILIRUBIN ADULT 0.9 MG/DL (0.2-1.0)
[2017-05-25] MEDS ORDERED: AUGM875T3 PO (10:29)
--- NOTE | 2017-05-25 10:38 | HHI.DCPOC ---
Discharge Care Plan Diagnosis: (1) IDDM (insulin dependent diabetes mellitus) (2) Acute cholecystitis (3) CAD (coronary artery disease) (4) PAD (peripheral artery disease) (5) HTN (hypertension) (6) Uncontrolled hypertension (7) Anemia Goals to Promote Your Health * To prevent worsening of your condition and complications * To maintain your health at the optimal level Directions to Meet Your Goals Take your medications as prescribed Follow your dietary instruction Follow activity as directed Keep your appointments as scheduled Take your immunizations and boosters as scheduled If your symptoms worsen call your PCP, if no PCP go to Urgent Care Center or Emergency Room Smoking is Dangerous to Your Health. Avoid second hand smoke Call the 24-hour hour crisis hotline for domestic abuse at Danish Willis MD May 25, 2017 10:38
[2017-05-25] MEDS ORDERED: AMLO10 PO (10:42)
[2017-05-25] MEDS ORDERED: METO-426 PO (10:44)
[2017-05-25] MEDS ORDERED: METOPROLOL TARTRATE 25 MG TAB PO ONE (10:45)
--- NOTE | 2017-05-25 10:51 | HHI.DS ---
Discharge Summary Admission Date May 22, 2017 at 22:10 Discharge Date: May 25, 2017 Admitting Diagnosis Abdominal pain, Acute cholecystitis Brief History - From Admission 71-year-old male with diabetes mellitus, CAD status post CABG, PCI January 2017, recent bilateral iliac stents placed in April of this year, with complication of bilateral retroperitoneal bleed. Patient presents with 2 day history of constant sharp nonradiating right upper quadrant pain which is worse with a deep breath. He reports low-grade fevers, some nausea. Denies any shortness of breath. Denies any diarrhea or constipation. Patient had recent presentation on 05/17 with epigastric pain, found to have pancreatitis which resolved. Patient was discharged on 05/19, presents again on 05/20 with similar epigastric pain. Workup at that time did show some gallbladder wall thickening, however patient did not have right upper quadrant pain at that time, and he was discharged home. CBC/BMP: 05/25/17 0708 05/25/17 0708 Significant Findings Laboratory Tests Test 05/22/17 20:55 05/23/17 05:31 05/25/17 07:08 Red Blood Count 2.99 MIL/MM3 (4.50-5.90) 2.65 MIL/MM3 (4.50-5.90) 3.22 MIL/MM3 (4.50-5.90) Hemoglobin 9.0 GM/DL (13.0-17.0) 8.3 GM/DL (13.0-17.0) 9.8 GM/DL (13.0-17.0) Hematocrit 26.8 % (39.0-51.0) 23.8 % (39.0-51.0) 29.1 % (39.0-51.0) Neutrophils (%) (Auto) 75.5 % (16.0-70.0) Monocytes (%) (Auto) 10.8 % (0.0-8.0) 11.0 % (0.0-8.0) 10.5 % (0.0-8.0) Neutrophils # (Auto) 7.9 TH/MM3 (1.8-7.7) Monocytes # (Auto) 1.1 TH/MM3 (0-0.9) 1.0 TH/MM3 (0-0.9) Random Glucose 173 MG/DL (74-106) 57 MG/DL (74-106) 145 MG/DL (74-106) Albumin 2.9 GM/DL (3.4-5.0) 2.6 GM/DL (3.4-5.0) 2.8 GM/DL (3.4-5.0) Troponin I LESS THAN 0.02 NG/ML C-Reactive Protein 16.00 MG/DL (0.00-0.30) Total Protein 6.1 GM/DL (6.4-8.2) Calcium Level 8.4 MG/DL (8.5-10.1) Potassium Level 3.4 MEQ/L (3.5-5.1) Estimat Glomerular Filtration Rate 86 ML/MIN (>89) Imaging Last Impressions Percutaneous Cholangiogram 05/23/17 0000 Signed Impressions: Service Date/Time: Tuesday, May 23, 2017 14:50 - CONCLUSION: Uncomplicated percutaneous cholecystostomy as above. Dick Harper MD CT Angiography 05/22/17 0000 Signed Impressions: Service Date/Time: Tuesday, May 23, 2017 00:34 - CONCLUSION: No evidence of pulmonary embolism. Nonspecific enlargement of mediastinal and right hilar lymph nodes. Evidence of prior granulomatous disease. Solo Phelan MD PE at Discharge GENERAL: This is a well-nourished, well-developed patient, in no apparent distress. SKIN: No rashes, warm and dry HEAD: Atraumatic. Normocephalic. EYES: Pupils equal round and reactive. Extraocular motions intact. No scleral icterus. ENT: Nose without bleeding, or drainage, Airway patent. NECK: Trachea midline. Supple CARDIOVASCULAR: Regular rate and rhythm without murmurs, gallops, or rubs. RESPIRATORY: Fair air entry bilaterally. No wheezes, rales, or rhonchi. GASTROINTESTINAL: Abdomen soft, non-tender, nondistended. Positive bowel sounds , biliary drain are in place MUSCULOSKELETAL: Extremities without clubbing, cyanosis, or edema. Pedal pulses appreciated NEUROLOGICAL: Awake and alert. Moves all extremity. Normal speech.no focal neurological deficit Pt update on day of discharge The patient denies any major abdominal pain. States he has some discomfort over with the drainage tube is inserted when he takes deep breaths. Denies fevers, chills, denies nausea, vomiting. The patient is tolerating diet very well. Case was discussed with Linda Angel who states that the patient is surgically cleared to be discharged. Hospital Course The patient was admitted to the medical floor, CTA of the chest ruled out PE and showed nonspecific enlargement of mediastinal and right hilar lymph nodes. There is described evidence of prior granulomatous disease. Initially recent imaging with gallbladder ultrasound showing wall thickening. The patient was treated with antiemetics for control of nausea, the patient was started on IV Zosyn and IV vancomycin, pain control was provided with IV morphine and [place]. Gen. surgery was consulted for concerns of acute cholecystitis. General surgery stated that the patient with acute cholecystitis, however I think surgical risk. It was elected to defer surgery and to place a cholecystostomy tube which was placed on 05/23/17 by interventional radiology. The case has been discussed with general surgery and the patient is cleared to be discharged home. Patient has history of CAD, hypertension, insulin-dependent diabetes mellitus. Patient's medications include an aspirin, Plavix, beta salas, SHEYLA inhibitor were continued during hospital stay. It was noted that the patient's blood pressure was elevated on the day of discharge, therefore, metoprolol dose was increased from 50 mg by mouth twice a day to 75 mg by mouth twice a day. The patient was placed insulin Levemir 5 units subcutaneous twice a day and insulin sliding scale with insulin NovoLog for control of blood sugars. It is noted that the blood sugars drop to the high 50s on 05/23. Levothyroxine was continued for the patient's hypothyroidism which remained stable during hospital stay. The patient will be discharged on aspirin, Plavix, beta salas , SHEYLA inhibitor and same insulin that he was using at home with the same dose. The patient was advised to follow-up with primary care physician as soon as he could for follow-up on his blood sugars and blood pressure. Pt Condition on Discharge: Stable Discharge Time: > 30 minutes Discharge Instructions Follow up Referrals: Surgical - 2 Weeks with Klever Merlos MD New Medications: Amoxicillin-Clavulanate (Augmentin) 875-125 Mg Tab 1 TAB PO BID for Infection for 5 Days, #10 TAB 0 Refills Metoprolol Tartrate (Metoprolol Tartrate) 75 Mg Tab 75 MG PO BID for Blood Pressure Management, #60 TAB 0 Refills Amlodipine (Norvasc) 10 Mg Tab 10 MG PO DAILY for Blood Pressure Management, #31 TAB Continued Medications: Ascorbic Acid (Vitamin C) 250 Mg Tab 250 MG PO for Nutritional Supplement, TAB 0 Refills Aspirin (Aspirin) 81 Mg Chew 81 MG CHEW DAILY, TAB 0 Refills Clopidogrel (Plavix) 75 Mg Tab 75 MG PO DAILY for Regulate Heart Beat, #30 TAB 7 Refills Cyanocobalamin Inj (Cyanocobalamin Inj) 1,000 Mcg/Ml Inj 1000 MCG IM Q30D, #1 VIAL 0 Refills Gabapentin (Gabapentin) 300 Mg Cap 300 MG PO BID, #60 CAP 0 Refills Insulin Human Isophane-Regular 70-30 Inj (Novolin 70-30 Inj) 1,000 Unit/10 Ml Vial 66 UNITS SQ DAILY for Blood Sugar Management, ML 0 Refills Insulin Human Isophane-Regular 70-30 Inj (Novolin 70-30 Inj) 1,000 Unit/10 Ml Vial 50 UNITS SQ HS for Blood Sugar Management, ML 0 Refills Levothyroxine (Levothyroxine) 25 Mcg Tab 25 MCG PO DAILY for Thyroid, #30 TAB 0 Refills Lisinopril (Lisinopril) 40 Mg Tab 40 MG PO DAILY for Blood Pressure Management, #30 TAB 0 Refills Magnesium Oxide (Magnesium Oxide) 400 Mg Cap 1 CAP PO DAILY Metformin ER (Metformin ER) 1,000 Mg Porsha 1000 MG PO DAILY for Blood Sugar Management, #30 TAB 0 Refills With evening meal Nitroglycerin SL (Nitroglycerin SL) 0.4 Mg Subl 0.4 MG SL DIRECTED PRN for CHEST PAIN, #100 TAB.SL 0 Refills ONE TABLET UNDER THE TONGUE NEEDED FOR CHEST PAIN, MAY REPEAT EVERY FIVE MINUTES FOR A TOTAL OF 3 DOSES OR CALL 911 IF NO RELIEF Rosuvastatin (Rosuvastatin) 20 Mg Tab 10 MG PO HS for Cholesterol Management, #30 TAB 0 Refills Discontinued Medications: Amlodipine (Amlodipine) 5 Mg Tab 5 MG PO DAILY for Blood Pressure Management, #30 TAB 0 Refills Metoprolol Tartrate (Metoprolol Tartrate) 50 Mg Tab 50 MG PO BID, #60 TAB 0 Refills Danish Willis MD May 25, 2017 10:51
--- NOTE | 2017-05-25 11:18 | HHI.PR ---
Subjective Subjective Notes Up to chair Has ambulated in hallway this AM Objective Vitals/I&O Vital Signs Date Time Temp Pulse Resp B/P (MAP) Pulse Ox O2 Delivery O2 Flow Rate FiO2 05/25/17 10:43 162/72 (102) 05/25/17 08:00 98.0 70 17 93 05/22/17 20:59 Room Air Labs Laboratory Tests Test 05/25/17 07:08 White Blood Count 5.7 Red Blood Count 3.22 Hemoglobin 9.8 Hematocrit 29.1 Mean Corpuscular Volume 90.3 Mean Corpuscular Hemoglobin 30.5 Mean Corpuscular Hemoglobin Concent 33.8 Red Cell Distribution Width 14.1 Platelet Count 243 Mean Platelet Volume 7.8 Neutrophils (%) (Auto) 63.5 Lymphocytes (%) (Auto) 22.2 Monocytes (%) (Auto) 10.5 Eosinophils (%) (Auto) 3.2 Basophils (%) (Auto) 0.6 Neutrophils # (Auto) 3.6 Lymphocytes # (Auto) 1.3 Monocytes # (Auto) 0.6 Eosinophils # (Auto) 0.2 Basophils # (Auto) 0.0 CBC Comment DIFF FINAL Differential Comment Blood Urea Nitrogen 10 Creatinine 0.87 Random Glucose 145 Total Protein 7.3 Albumin 2.8 Calcium Level 8.9 Alkaline Phosphatase 107 Aspartate Amino Transf (AST/SGOT) 15 Alanine Aminotransferase (ALT/SGPT) 17 Total Bilirubin 0.9 Sodium Level 140 Potassium Level 4.0 Chloride Level 106 Carbon Dioxide Level 24.8 Anion Gap 9 Estimat Glomerular Filtration Rate 86 Cardiovascular: Regular Lungs: Clear Abdomen: Non-distended, Non-tender, Other (Cholecystostomy drain in place with gravity bag---draining dark bilious drainage ) Extremities: No edema A/P Assessment and Plan 72 year old male with acute cholecystics s/p cholecystostomy tube placement -Continue regular diet -Transition to Augmentin -OOB and mobilize -DC with cholecystomy tube in place -Augmentin rx on chart -GS clear for DC; follow up with Dr. Merlos in 10-14 days Maribel Angel May 25, 2017 11:18
[2017-05-25] MEDS ORDERED: DOXAZOSIN MESYLATE 2 MG TAB PO ONE (17:00)
[2017-05-25] MEDS ORDERED: CARD2TAB PO (18:14)
[2017-05-25] MEDS ORDERED: METOPROLOL TARTRATE 25 MG TAB PO SCH (21:00)
[2017-05-26] MEDS ORDERED: DOXAZOSIN MESYLATE 2 MG TAB PO SCH (09:00)
== END 2017-05-25 20:32 | disposition home or self-care (01) | DRG 446 ==
LOC: NEPE 20:25 → NEDA 22:10 → N07A 22:44
PROVIDERS: ADMIT Hospitalist; ATTEND Hospitalist
PROC: 0F9430Z Drainage of Gallbladder with Drainage Device, Percutaneous Approach (ICD-10-PCS; principal; 2017-05-23)
DX: K81.0 Acute cholecystitis (principal); E11.51 Type 2 diabetes mellitus with diabetic peripheral angiopathy without gangrene; D64.9 Anemia, unspecified; I25.10 Atherosclerotic heart disease of native coronary artery without angina pectoris; I10 Essential (primary) hypertension; E03.9 Hypothyroidism, unspecified; K21.9 Gastro-esophageal reflux disease without esophagitis; I45.10 Unspecified right bundle-branch block; E78.5 Hyperlipidemia, unspecified; Z79.4 Long term (current) use of insulin; Z86.19 Personal history of other infectious and parasitic diseases; Z87.891 Personal history of nicotine dependence; Z95.1 Presence of aortocoronary bypass graft; Z95.5 Presence of coronary angioplasty implant and graft
CPT/HCPCS: 47490; 71275; 80053; 82948; 83690; 84484; 85025; 85610; 85730; 86140; 93005; 96361; 96374; 96375; 99152; 99153; C1729; C1769; J1815; J2060; J2270; J2405; J2543; J3010; J7030; Q9967

== ENCOUNTER 2017-06-07 11:13 | Emergency (ER) | payer MEDICARE, OTHER ==
[~2017-06-07 11:13] MED LIST changes: +AMLO10 PO; -AMLO5TAB2 PO; +ASPI-516 CHEW; -ASPI81CH CHEW; +AUGM875T3 PO; +CARD2TAB PO; -FERR325C PO; +METO-426 PO; -METO50TA PO
[2017-06-07 11:16] VITALS: BP 165/71; PULSE 65; RESP 15; TEMP 98.2; O2SAT 95
--- NOTE | 2017-06-07 13:14 | PD ---
HPI Chief Complaint: Wound/Suture/Staple Re-Check Time Seen by Provider: 13:06 Travel History International Travel<30 days: No Contact w/Intl Traveler<30days: No Traveled to known affect area: No History of Present Illness HPI 72-year-old male presents to the emergency department with concern of a drain on his right abdominal region. States he had a drain placed for a bile duct issue by interventional radiology at the very end of April and has not been able to follow-up. States he was not given an appointment upon discharge at that time and is unsure what to do at this point. He denies fever, chills. Denies any new symptoms of his condition. PFSH Past Medical History Hx Anticoagulant Therapy: Yes (asa 81mg) Arthritis: Yes (hips) Autoimmune Disease: No Blood Disorders: No Cancer: No Cardiac Catheterization: Yes (2 STENTS "IN LOWER ARTERIES", Apr) Cardiovascular Problems: Yes (HTN) High Cholesterol: Yes Chest Pain: Yes Coronary Artery Disease: Yes Diabetes: Yes Diminished Hearing: No Diverticulitis: Yes Gastrointestinal Disorders: No GERD: Yes Genitourinary: No Hepatitis: Yes (HX HEP C. TREATED 2001) Hypertension: Yes Immune Disorder: No Musculoskeletal: Yes Neurologic: No Psychiatric: No Reproductive: No Respiratory: No Pancreatitis: Yes Shingles: Yes Thyroid Disease: Yes (HYPOTHYROIDISM) Past Surgical History Arteriovenous Shunt: Yes (bilateral femoral arteries) Cardiac Surgery: Yes (triple bypass, 2 stents) Coronary Artery Bypass Graft: Yes (3 VESSEL, TRIPLE BYPASS 2002) Coronary Stent: Yes (X1 JULY 2016) Eye Surgery: Yes (cataract) Tonsillectomy: Yes Other Surgery: Yes (LEFT CAROTID ARTERY SURGERY) Social History Alcohol Use: No Tobacco Use: No (QUIT CIGARETTES 1970, CURRENTLY OCCASIONAL CIGAR) Substance Use: 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) Allergies-Medications (Allergen,Severity, Reaction): Coded Allergies: No Known Allergies (Unverified , 05/21/17) Reported Meds & Prescriptions Reported Meds & Active Scripts Active Cardura (Doxazosin Mesylate) 2 Mg Tab 2 Mg PO DAILY Metoprolol Tartrate 75 Mg Tab 75 Mg PO BID Norvasc (Amlodipine Besylate) 10 Mg Tab 10 Mg PO DAILY Augmentin (Amoxicillin-Clavulanate) 875-125 Mg Tab 1 Tab PO BID 5 Days Plavix (Clopidogrel Bisulfate) 75 Mg Tab 75 Mg PO DAILY Reported Vitamin C (Ascorbic Acid) 250 Mg Tab 250 Mg PO Rosuvastatin (Rosuvastatin Calcium) 20 Mg Tab 10 Mg PO HS Lisinopril 40 Mg Tab 40 Mg PO DAILY Metformin ER (Metformin HCl) 1,000 Mg Porsha 1,000 Mg PO DAILY With evening meal Cyanocobalamin Inj (Cyanocobalamin) 1,000 Mcg/Ml Inj 1,000 Mcg IM Q30D Nitroglycerin SL (Nitroglycerin) 0.4 Mg Subl 0.4 Mg SL DIRECTED PRN ONE TABLET UNDER THE TONGUE NEEDED FOR CHEST PAIN, MAY REPEAT EVERY FIVE MINUTES FOR A TOTAL OF 3 DOSES OR CALL 911 IF NO RELIEF Levothyroxine (Levothyroxine Sodium) 25 Mcg Tab 25 Mcg PO DAILY Gabapentin 300 Mg Cap 300 Mg PO BID Aspirin 81 Mg Chew 81 Mg CHEW DAILY Magnesium Oxide 400 Mg Cap 1 Cap PO DAILY Novolin 70-30 Inj (Insulin Human Isoph/Insulin Regular) 1,000 Unit/10 Ml Vial 50 Units SQ HS Novolin 70-30 Inj (Insulin Human Isoph/Insulin Regular) 1,000 Unit/10 Ml Vial 66 Units SQ DAILY Review of Systems Except as stated in HPI: all other systems reviewed are Neg Physical Exam Narrative GENERAL: Well-developed well-nourished in no apparent distress SKIN: Focused skin assessment warm/dry. HEAD: Atraumatic. Normocephalic. CARDIOVASCULAR: Regular rate and rhythm. No murmur appreciated. RESPIRATORY: No accessory muscle use. Clear to auscultation. Breath sounds equal bilaterally. GASTROINTESTINAL: Abdomen soft, non-tender, nondistended. Hepatic and splenic margins not palpable. Right upper abdomen axillary- single train tube without exudate or erythema to the area. 2 appears stable to palpation MUSCULOSKELETAL: No obvious deformities. No clubbing. No cyanosis. No edema. NEUROLOGICAL: Awake and alert. No obvious cranial nerve deficits. Motor grossly within normal limits. Normal speech. PSYCHIATRIC: Appropriate mood and affect; insight and judgment normal. Data Data Last Documented VS Vital Signs Date Time Temp Pulse Resp B/P (MAP) Pulse Ox O2 Delivery O2 Flow Rate FiO2 06/07/17 11:16 98.2 65 15 165/71 (102) 95 MDM Medical Decision Making Medical Screen Exam Complete: Yes Emergency Medical Condition: Yes Differential Diagnosis Medical equipment status versus cellulitis versus complication Narrative Course 72-year-old male presents to the emergency department with concern of a drain on his right abdominal region. States he had a drain placed for a bile duct issue by interventional radiology at the very end of April and has not been able to follow-up. States he was not given an appointment upon discharge at that time and is unsure what to do at this point. He denies fever, chills. Denies any new symptoms of his condition. Patient a rather poor historian versus confusion regarding the situation. NEGAR Hong, was able to speak with multiple offices regarding his situation. Apparently, he went to [facility] for treatment however, was due to follow up and did not. Patient is to sign a release form from the [place] for treatment. Patient and family understood this and will comply. Vital signs stable A medical screening exam was performed: At the time of evaluation the presenting medical condition was determined not to be of an emergent nature. The patient was given the option of receiving additional care, but declined. Patient was given options for additional community resources from which to obtain care. The Patient Has Been advised to seek medical attention for their presenting complaint. The patient has been advised to return to the ER at any time if an emergent condition develops. Diagnosis Primary Impression: Encounter for medical screening examination Referrals: Primary Care Physician Disposition: 01 DISCHARGE HOME Condition: Stable Viviana Underwood Jun 07, 2017 13:14
== END 2017-06-07 13:36 | disposition left against medical advice (07) ==
LOC: NEPK 11:13
DX: K83.9 Disease of biliary tract, unspecified (principal); I10 Essential (primary) hypertension; E11.9 Type 2 diabetes mellitus without complications; E03.9 Hypothyroidism, unspecified; E78.00 Pure hypercholesterolemia, unspecified; Z79.82 Long term (current) use of aspirin; Z87.39 Personal history of other diseases of the musculoskeletal system and connective tissue; Z86.79 Personal history of other diseases of the circulatory system; Z87.19 Personal history of other diseases of the digestive system
CPT/HCPCS: 99281

== ENCOUNTER 2017-06-10 21:27 | Emergency (ER) | payer OTHER ==
[~2017-06-10] VITALS: Ht 170.2 cm; Wt 73.0 kg
[2017-06-10 21:29] VITALS: BP 218/98; PULSE 99; RESP 20; TEMP 98.2; O2SAT 96
[2017-06-10] MEDS ORDERED: MORPHINE SULFATE 4 MG/ML INJ IV PUSH ONE (23:00)
[2017-06-10] MEDS ORDERED: ONDANSETRON HCL 4 MG/2 ML VIAL IV PUSH ONE (23:00)
[2017-06-10] MEDS ORDERED: diphenhydrAMINE HCL 50 MG/ML VIAL IV PUSH ONE (23:00)
[2017-06-10 23:19] VITALS: RESP 16
[2017-06-10 23:35] LABS: AUTOMATED NEUTROPHIL # 7.9 TH/MM3 (1.8-7.7); BASOPHIL # 0.1 TH/MM3 (0-0.2); BASOPHIL % 0.7 % (0.0-2.0); EOSINOPHIL # 0.2 TH/MM3 (0-0.4); EOSINOPHIL % 1.5 % (0.0-4.0); HEMATOCRIT 34.8 % (39.0-51.0); HEMO FLAGS DIFF FINAL; LYMPH % 15.2 % (9.0-44.0); LYMPHOCYTE # 1.6 TH/MM3 (1.0-4.8); MEAN CELL VOLUME 89.9 FL (80.0-100.0); MEAN CORPUSCULAR HEMOGLOBIN 30.6 PG (27.0-34.0); MONO % 9.4 % (0.0-8.0); NEUT % 73.2 % (16.0-70.0); PLATELET COUNT 171 TH/MM3 (150-450); RED BLOOD COUNT 3.88 MIL/MM3 (4.50-5.90); WHITE BLOOD COUNT 10.8 TH/MM3 (4.0-11.0)
--- NOTE | 2017-06-10 23:42 | RADRPT ---
EXAM DATE/TIME: 06/10/2017 23:01 [facility] COMPARISON: US ABDOMEN - GALLBLADDER, May 21, 2017, 2:54. ULTRASOUND GUIDANCE FOR VASCULAR ACCESS, April 262016, 15:21. CHOLECYSTOSTOMY, PERCUTANEOUS, May 23, 2017, 14:50. INDICATIONS : Abdominal pain. MEDICAL HISTORY : Hypothyroidism. Hypertension. Hypercholesterolemia. Coronary artery disease. Anticoagulant therapy. D iverticulitis. Pancreatitis. GERD. Arthritis. Diabetes. Liver disease. SURGICAL HISTORY : Tonsillectomy. CABG. Coronary artery stent. Left carotid surgery. Cataract removal. Bilateral femoral artery surgery. ENCOUNTER: Subsequent ACUITY: 2 days PAIN SCORE: 8/10 LOCATION: Right upper quadrant AREA EVALUATED: Common bile duct/stent FINDINGS: The gallbladder is contracted. A catheter is identified within the gallbladder lumen. The common bi le duct is identified and measures 7 mm in dimension. No free fluid seen. CONCLUSION: A portion of the catheter is identified within the gallbladder lumen. Normal dimension common hepati c duct. Dustin Temple MD on June 10, 2017 at 23:37 Board Certified Radiologist. This report was verified electronically.
[2017-06-10 23:57] LABS: ANION GAP 8 MEQ/L (5-15); AST (GOT) 20 U/L (15-37); BICARBONATE 26.6 MEQ/L (21.0-32.0); BLOOD UREA NITROGEN 12 MG/DL (7-18); CHLORIDE 104 MEQ/L (98-107); GLOMERULAR FILTRATION RATE 83 ML/MIN (>89); POTASSIUM 4.1 MEQ/L (3.5-5.1); SODIUM (NA) 139 MEQ/L (136-145)
[2017-06-11 00:03] LABS: ALKALINE PHOSPHATASE 62 U/L (45-117); ALT (GPT) 23 U/L (12-78); TOTAL BILIRUBIN ADULT 0.3 MG/DL (0.2-1.0)
--- NOTE | 2017-06-11 01:03 | PD ---
HPI Chief Complaint: Abdominal Pain Time Seen by Provider: 22:26 Travel History International Travel<30 days: No Contact w/Intl Traveler<30days: No Traveled to known affect area: No History of Present Illness HPI Patient in April a month ago had a pancreatitis was caused by gallstone. He was admitted then allowed to be nothing by mouth for a few days then discharged area exposed to come back to have a removal of a gallstone but 2 days he had some pain he came right back to a different ER in [facility]. Again they thought he needed cooldown period but the pain was so bad he came back to [facility] the next day and had a stent placed by gastroenterology. He has been okay he has a drain with a leg bag full of bile from the gallbladder. There is been no decrease in the amount of output up the gallbladder drain. There is no green bile on the pad around the abdomen where the stent enters the cutaneous area. There seems to be no problem with the functioning. However he comes in because the pain suddenly became severe. I will check his labs LFTs total bili and DuoNeb ultrasound to make sure the placement of the tip is in place although there is no symptoms or signs of obstruction. The pain is localized to the right upper quadrant. It is a severe stabbing-like pain. Nothing has relieved the symptoms. He has not seen another doctor for this. PFSH Past Medical History Hx Anticoagulant Therapy: Yes (asa 81mg) Arthritis: Yes (hips) Autoimmune Disease: No Blood Disorders: No Cancer: No Cardiac Catheterization: Yes (2 STENTS "IN LOWER ARTERIES", Apr) Cardiovascular Problems: Yes (HTN) High Cholesterol: Yes Chest Pain: Yes Coronary Artery Disease: Yes Diabetes: Yes Patient Takes Glucophage: No Diminished Hearing: No Diverticulitis: Yes Gastrointestinal Disorders: No GERD: Yes Genitourinary: No Hepatitis: Yes (HX HEP C. TREATED 2001) Hypertension: Yes Immune Disorder: No Musculoskeletal: Yes Neurologic: No Psychiatric: No Reproductive: No Respiratory: No Pancreatitis: Yes Shingles: Yes Thyroid Disease: Yes (HYPOTHYROIDISM) Past Surgical History Arteriovenous Shunt: Yes (bilateral femoral arteries) Cardiac Surgery: Yes (triple bypass, 2 stents) Coronary Artery Bypass Graft: Yes (3 VESSEL, TRIPLE BYPASS 2002) Coronary Stent: Yes (X1 JULY 2016) Eye Surgery: Yes (cataract) Tonsillectomy: Yes Other Surgery: Yes (LEFT CAROTID ARTERY SURGERY) Social History Alcohol Use: No Tobacco Use: No (QUIT CIGARETTES 1971, CURRENTLY OCCASIONAL CIGAR) Substance Use: 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) Allergies-Medications (Allergen,Severity, Reaction): Coded Allergies: No Known Allergies (Unverified , 05/21/17) Reported Meds & Prescriptions Reported Meds & Active Scripts Active [place] (Hydrocodone-Acetaminophen) 5 Mg-325 Mg Tab 1 Tab PO Q4H PRN Cardura (Doxazosin Mesylate) 2 Mg Tab 2 Mg PO DAILY Metoprolol Tartrate 75 Mg Tab 75 Mg PO BID Norvasc (Amlodipine Besylate) 10 Mg Tab 10 Mg PO DAILY Augmentin (Amoxicillin-Clavulanate) 875-125 Mg Tab 1 Tab PO BID 5 Days Plavix (Clopidogrel Bisulfate) 75 Mg Tab 75 Mg PO DAILY Reported Vitamin C (Ascorbic Acid) 250 Mg Tab 250 Mg PO Rosuvastatin (Rosuvastatin Calcium) 20 Mg Tab 10 Mg PO HS Lisinopril 40 Mg Tab 40 Mg PO DAILY Metformin ER (Metformin HCl) 1,000 Mg Porsha 1,000 Mg PO DAILY With evening meal Cyanocobalamin Inj (Cyanocobalamin) 1,000 Mcg/Ml Inj 1,000 Mcg IM Q30D Nitroglycerin SL (Nitroglycerin) 0.4 Mg Subl 0.4 Mg SL DIRECTED PRN ONE TABLET UNDER THE TONGUE NEEDED FOR CHEST PAIN, MAY REPEAT EVERY FIVE MINUTES FOR A TOTAL OF 3 DOSES OR CALL 911 IF NO RELIEF Levothyroxine (Levothyroxine Sodium) 25 Mcg Tab 25 Mcg PO DAILY Gabapentin 300 Mg Cap 300 Mg PO BID Aspirin 81 Mg Chew 81 Mg CHEW DAILY Magnesium Oxide 400 Mg Cap 1 Cap PO DAILY Novolin 70-30 Inj (Insulin Human Isoph/Insulin Regular) 1,000 Unit/10 Ml Vial 50 Units SQ HS Novolin 70-30 Inj (Insulin Human Isoph/Insulin Regular) 1,000 Unit/10 Ml Vial 66 Units SQ DAILY Physical Exam Narrative GENERAL: non toxic appearing SKIN: Warm and dry. HEAD: Atraumatic. Normocephalic. EYES: Pupils equal and round. No scleral icterus. No injection or drainage. ENT: No nasal bleeding or discharge. Mucous membranes pink and moist. NECK: Trachea midline. No JVD. CARDIOVASCULAR: Regular rate and rhythm. RESPIRATORY: No accessory muscle use. Clear to auscultation. Breath sounds equal bilaterally. GASTROINTESTINAL: Abdomen soft, there is a thin tube draining going into the right upper quadrant with a 4 x 4 white no green leakage onto the 4 x 4 and there is draining into the leg bag normal bile parents tenderness over the area where the port was in but no signs of infection or leakage-.. , nondistended. Hepatic and splenic margins not palpable. MUSCULOSKELETAL: Extremities without clubbing, cyanosis, or edema. No obvious deformities. NEUROLOGICAL: Awake and alert. No obvious cranial nerve deficits. Motor grossly within normal limits. Five out of 5 muscle strength in the arms and legs. Normal speech. PSYCHIATRIC: Appropriate mood and affect; insight and judgment normal. Patient has a drain going into a bandage above his right upper quadrant area into the gallbladder common bile duct. There is no drainage on the bandage there is no Green fluid or signs of leak. The leg bag is collecting normal bile reports no decrease in that Data Data Last Documented VS Vital Signs Date Time Temp Pulse Resp B/P (MAP) Pulse Ox O2 Delivery O2 Flow Rate FiO2 06/11/17 01:24 06/10/17 23:19 16 06/10/17 21:29 98.2 99 96 Room Air Orders Orders Ondansetron Inj (Zofran Inj) (06/10/17 23:00) Morphine Inj (Morphine Inj) (06/10/17 23:00) Complete Blood Count With Diff (06/10/17 22:49) Comprehensive Metabolic Panel (06/10/17 22:49) Diphenhydramine Inj (Benadryl Inj) (06/10/17 23:00) Us Abdomen Upper Limited (06/10/17 ) Ed Discharge Order (06/11/17 00:53) Labs Laboratory Tests Test 06/10/17 23:05 White Blood Count 10.8 TH/MM3 Red Blood Count 3.88 MIL/MM3 Hemoglobin 11.8 GM/DL Hematocrit 34.8 % Mean Corpuscular Volume 89.9 FL Mean Corpuscular Hemoglobin 30.6 PG Mean Corpuscular Hemoglobin Concent 34.0 % Red Cell Distribution Width 15.0 % Platelet Count 171 TH/MM3 Mean Platelet Volume 8.0 FL Neutrophils (%) (Auto) 73.2 % Lymphocytes (%) (Auto) 15.2 % Monocytes (%) (Auto) 9.4 % Eosinophils (%) (Auto) 1.5 % Basophils (%) (Auto) 0.7 % Neutrophils # (Auto) 7.9 TH/MM3 Lymphocytes # (Auto) 1.6 TH/MM3 Monocytes # (Auto) 1.0 TH/MM3 Eosinophils # (Auto) 0.2 TH/MM3 Basophils # (Auto) 0.1 TH/MM3 CBC Comment DIFF FINAL Differential Comment Blood Urea Nitrogen 12 MG/DL Creatinine 0.90 MG/DL Random Glucose 192 MG/DL Total Protein 7.4 GM/DL Albumin 3.8 GM/DL Calcium Level 8.6 MG/DL Alkaline Phosphatase 62 U/L Aspartate Amino Transf (AST/SGOT) 20 U/L Alanine Aminotransferase (ALT/SGPT) 23 U/L Total Bilirubin 0.3 MG/DL Sodium Level 139 MEQ/L Potassium Level 4.1 MEQ/L Chloride Level 104 MEQ/L Carbon Dioxide Level 26.6 MEQ/L Anion Gap 8 MEQ/L Estimat Glomerular Filtration Rate 83 ML/MIN MDM Medical Decision Making Medical Screen Exam Complete: Yes Emergency Medical Condition: Yes Differential Diagnosis gallstone disease, vs pancreatic obstruction vs post procedural pain Narrative Course sign symptoms do not appear to be caused by slipped drain and U/S confirm in place , pain meds and follow up with outpt GI Diagnosis Primary Impression: Gallbladder disease Scripts Hydrocodone-Acetaminophen ([place]) 5 Mg-325 Mg Tab 1 TAB PO Q4H Y for PAIN, #10 TAB 0 Refills Prov: Bhavik Guteirrez MD 06/11/17 Disposition: 01 DISCHARGE HOME Condition: Good Bhavik Gutierrez MD Jun 11, 2017 01:03
[2017-06-11] MEDS ORDERED: NORC5TAB PO (01:06)
== END 2017-06-11 01:26 | disposition home or self-care (01) ==
LOC: NEPC 21:27
DX: K82.9 Disease of gallbladder, unspecified (principal); E11.9 Type 2 diabetes mellitus without complications; I10 Essential (primary) hypertension; E03.9 Hypothyroidism, unspecified; E78.00 Pure hypercholesterolemia, unspecified; Z72.0 Tobacco use; Z79.82 Long term (current) use of aspirin; Z79.4 Long term (current) use of insulin; Z87.39 Personal history of other diseases of the musculoskeletal system and connective tissue; Z86.79 Personal history of other diseases of the circulatory system; Z87.19 Personal history of other diseases of the digestive system; Z86.19 Personal history of other infectious and parasitic diseases; Z86.69 Personal history of other diseases of the nervous system and sense organs
CPT/HCPCS: 76705; 80053; 85025; 96374; 96375; 99284; J1200; J2270; J2405

== ENCOUNTER 2017-06-18 08:42 | Emergency (ER) | payer OTHER ==
[~2017-06-18] VITALS: Ht 170.2 cm; Wt 75.0 kg
[~2017-06-18 08:42] MED LIST changes: +NORC5TAB PO
[2017-06-18 08:48] VITALS: BP 170/72; PULSE 75; RESP 16; TEMP 97.9; O2SAT 98
--- NOTE | 2017-06-18 10:15 | PD ---
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 Patient has history of gallstone pancreatitis status post stent placement patient states that the stent has been draining well. Patient states that he woke up this morning and the connection between that stent and the bag was dislodged and bile was leaking from the connecting site. Patient otherwise denies abdominal pain. Patient denies nausea vomiting fever chills. PFSH Past Medical History Hx Anticoagulant Therapy: Yes (asa 81mg) Arthritis: Yes (hips) Autoimmune Disease: No Blood Disorders: No Cancer: No Cardiac Catheterization: Yes (2 STENTS "IN LOWER ARTERIES", Apr) Cardiovascular Problems: Yes (HTN) High Cholesterol: Yes Chest Pain: Yes Coronary Artery Disease: Yes Diabetes: Yes Patient Takes Glucophage: Yes Diminished Hearing: No Diverticulitis: Yes Gastrointestinal Disorders: No GERD: Yes Genitourinary: No Hepatitis: Yes (HX HEP C. TREATED 2001) Hypertension: Yes Immune Disorder: No Musculoskeletal: Yes Neurologic: No Psychiatric: No Reproductive: No Respiratory: No Pancreatitis: Yes Shingles: Yes Thyroid Disease: Yes (HYPOTHYROIDISM) Past Surgical History Arteriovenous Shunt: Yes (bilateral femoral arteries) Cardiac Surgery: Yes (triple bypass, 2 stents, L CEA) Coronary Artery Bypass Graft: Yes (3 VESSEL, TRIPLE BYPASS 2002) Coronary Stent: Yes (X1 JULY 2016) Eye Surgery: Yes (cataract) Tonsillectomy: Yes Other Surgery: Yes (LEFT CAROTID ARTERY SURGERY, t-tube drain) Social History Alcohol Use: No Tobacco Use: No (QUIT CIGARETTES 1970, CURRENTLY OCCASIONAL CIGAR) Substance Use: No (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) Allergies-Medications (Allergen,Severity, Reaction): Coded Allergies: No Known Allergies (Unverified Adverse Reaction, Unknown, 06/18/17) Reported Meds & Prescriptions Reported Meds & Active Scripts Active Counce (Hydrocodone-Acetaminophen) 5 Mg-325 Mg Tab 1 Tab PO Q4H PRN Metoprolol Tartrate 75 Mg Tab 75 Mg PO BID Norvasc (Amlodipine Besylate) 10 Mg Tab 10 Mg PO DAILY Plavix (Clopidogrel Bisulfate) 75 Mg Tab 75 Mg PO DAILY Reported Vitamin C (Ascorbic Acid) 250 Mg Tab 250 Mg PO Rosuvastatin (Rosuvastatin Calcium) 20 Mg Tab 10 Mg PO HS Lisinopril 40 Mg Tab 40 Mg PO DAILY Metformin ER (Metformin HCl) 1,000 Mg Porsha 1,000 Mg PO DAILY With evening meal Cyanocobalamin Inj (Cyanocobalamin) 1,000 Mcg/Ml Inj 1,000 Mcg IM Q30D Nitroglycerin SL (Nitroglycerin) 0.4 Mg Subl 0.4 Mg SL DIRECTED PRN ONE TABLET UNDER THE TONGUE NEEDED FOR CHEST PAIN, MAY REPEAT EVERY FIVE MINUTES FOR A TOTAL OF 3 DOSES OR CALL 911 IF NO RELIEF Levothyroxine (Levothyroxine Sodium) 25 Mcg Tab 25 Mcg PO DAILY Gabapentin 300 Mg Cap 300 Mg PO BID Aspirin 81 Mg Chew 81 Mg CHEW DAILY Magnesium Oxide 400 Mg Cap 1 Cap PO DAILY Novolin 70-30 Inj (Insulin Human Isoph/Insulin Regular) 1,000 Unit/10 Ml Vial 50 Units SQ HS Novolin 70-30 Inj (Insulin Human Isoph/Insulin Regular) 1,000 Unit/10 Ml Vial 66 Units SQ DAILY Review of Systems General / Constitutional: No: Fever Eyes: No: Visual changes HENT: No: Headaches Cardiovascular: No: Chest Pain or Discomfort Respiratory: No: Shortness of Breath Gastrointestinal: No: Abdominal Pain Genitourinary: No: Dysuria Musculoskeletal: No: Pain Skin: No Rash Neurologic: No: Weakness Psychiatric: No: Depression Endocrine: No: Polydipsia Hematologic/Lymphatic: No: Easy Bruising Physical Exam Narrative GENERAL: Well-nourished, well-developed patient. SKIN: Focused skin assessment warm/dry. HEAD: Normocephalic. EYES: No scleral icterus. No injection or drainage. NECK: Supple, trachea midline. No JVD or lymphadenopathy. CARDIOVASCULAR: Regular rate and rhythm without murmurs, gallops, or rubs. RESPIRATORY: Breath sounds equal bilaterally. No accessory muscle use. GASTROINTESTINAL: Abdomen soft, non-tender, nondistended. MUSCULOSKELETAL: No cyanosis, or edema. BACK: Nontender without obvious deformity. No CVA tenderness. The connection between the stent in the bag was loose. Data Data Last Documented VS Vital Signs Date Time Temp Pulse Resp B/P (MAP) Pulse Ox O2 Delivery O2 Flow Rate FiO2 06/18/17 08:48 97.9 75 16 170/72 (104) 98 MDM Medical Decision Making Medical Screen Exam Complete: Yes Emergency Medical Condition: Yes Differential Diagnosis Differential diagnosis including tube disconnection. Narrative Course 72-year-old male with history of gallstone pancreatitis. Patient has stent in place. There connection was loose this morning. Patient was leaking bile. The connection was reconnected and tape. Bile draining freely. Diagnosis Primary Impression: Displacement of biliary stent Qualified Codes: T85.520A - Displacement of bile duct prosthesis, initial encounter Patient Instructions: General Instructions Additional Instructions: Follow-up with surgeon at the [facility] as scheduled. Return if any problem. Med/Other Pt SpecificInfo: No Change to Meds Disposition: 01 DISCHARGE HOME Condition: Stable Tirso Santos MD Jun 18, 2017 10:15
== END 2017-06-18 10:38 | disposition home or self-care (01) ==
LOC: NEPE 08:42
DX: T85.520A Displacement of bile duct prosthesis, initial encounter (principal); I10 Essential (primary) hypertension; E11.9 Type 2 diabetes mellitus without complications; K85.90 Acute pancreatitis without necrosis or infection, unspecified; E03.9 Hypothyroidism, unspecified; Z79.01 Long term (current) use of anticoagulants
CPT/HCPCS: 99282

== ENCOUNTER 2017-07-07 09:35 | Inpatient (IN) | payer OTHER, MEDICARE ==
[~2017-07-07] VITALS: Ht 171.4 cm; Wt 72.4 kg
[2017-07-07] VITALS (23 sets, daily range): BP systolic 96–140; BP diastolic 49–68; PULSE 76–169; RESP 16–20; TEMP 98.1–98.6; O2SAT 95–100
[~2017-07-07 09:35] MED LIST changes: -AUGM875T3 PO; -CARD2TAB PO
--- NOTE | 2017-07-07 10:03 | PD ---
HPI Chief Complaint: Cardiac Complaint Time Seen by Provider: 10:02 Travel History International Travel<30 days: No Contact w/Intl Traveler<30days: No Traveled to known affect area: No History of Present Illness HPI 72-year-old male came to the emergency room with history of shortness of breath , generalized weakness and rapid heart rate. Patient says that he's been feeling like this for past 3-4 days. He has history of diabetes and yesterday his blood sugar was in the 40s. Patient has been attribute into his low blood sugar but this morning when he started feeling worse he checked his pulse and it was in the 160s. His drove him to the emergency room. In triage his pulse was in 160s to 170s. Patient does not have history of A. 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 Patient denies of any chest pain. He does have some lightheadedness and shortness of breath. He looked in distress. [facility] Past Medical History Narrative Medical List of his past medical, surgical, social and family history is reviewed from the nursing note. Hx Anticoagulant Therapy: Yes (asa 81mg) Arthritis: Yes (hips) Autoimmune Disease: No Blood Disorders: No Cancer: No Cardiac Catheterization: Yes (2 STENTS "IN LOWER ARTERIES", Apr) Cardiovascular Problems: Yes High Cholesterol: Yes Chest Pain: Yes Coronary Artery Disease: Yes Diabetes: Yes Diminished Hearing: No Diverticulitis: Yes Gastrointestinal Disorders: No GERD: Yes Genitourinary: No Hepatitis: Yes (HX HEP C. TREATED 2001) Hypertension: Yes Immune Disorder: No Musculoskeletal: Yes Neurologic: No Psychiatric: No Reproductive: No Respiratory: No Pancreatitis: Yes Shingles: Yes Thyroid Disease: Yes (HYPOTHYROIDISM) Past Surgical History Arteriovenous Shunt: Yes (bilateral femoral arteries) Cardiac Surgery: Yes (triple bypass, 2 stents, L CEA) Coronary Artery Bypass Graft: Yes (3 VESSEL, TRIPLE BYPASS 2002) Coronary Stent: Yes (X1 JULY 2016) Eye Surgery: Yes (cataract) Tonsillectomy: Yes Other Surgery: Yes (LEFT CAROTID ARTERY SURGERY, t-tube drain) Social History Alcohol Use: No Tobacco Use: No (QUIT CIGARETTES 1970, CURRENTLY OCCASIONAL CIGAR) Substance Use: No (IV drug use in ) Allergies-Medications (Allergen,Severity, Reaction): Coded Allergies: No Known Allergies (Unverified Allergy, Unknown, 07/07/17) Comments No known drug allergies. Reported Meds & Prescriptions Reported Meds & Active Scripts Active Metoprolol Tartrate 75 Mg Tab 75 Mg PO BID Norvasc (Amlodipine Besylate) 10 Mg Tab 10 Mg PO DAILY Plavix (Clopidogrel Bisulfate) 75 Mg Tab 75 Mg PO DAILY Reported Hydrochlorothiazide 25 Mg Tab 25 Mg PO DAILY Vitamin C (Ascorbic Acid) 250 Mg Tab 250 Mg PO Rosuvastatin (Rosuvastatin Calcium) 20 Mg Tab 10 Mg PO HS Lisinopril 40 Mg Tab 40 Mg PO DAILY Metformin ER (Metformin HCl) 1,000 Mg Porsha 1,000 Mg PO DAILY With evening meal Cyanocobalamin Inj (Cyanocobalamin) 1,000 Mcg/Ml Inj 1,000 Mcg IM Q30D Nitroglycerin SL (Nitroglycerin) 0.4 Mg Subl 0.4 Mg SL DIRECTED PRN ONE TABLET UNDER THE TONGUE NEEDED FOR CHEST PAIN, MAY REPEAT EVERY FIVE MINUTES FOR A TOTAL OF 3 DOSES OR CALL 911 IF NO RELIEF Levothyroxine (Levothyroxine Sodium) 25 Mcg Tab 25 Mcg PO DAILY Gabapentin 300 Mg Cap 300 Mg PO BID Magnesium Oxide 400 Mg Cap 1 Cap PO DAILY Novolin 70-30 Inj (Insulin Human Isoph/Insulin Regular) 1,000 Unit/10 Ml Vial 50 Units SQ HS Novolin 70-30 Inj (Insulin Human Isoph/Insulin Regular) 1,000 Unit/10 Ml Vial 66 Units SQ DAILY Narrative Medication List of his home medications reviewed from the nursing note. Review of Systems Except as stated in HPI: all other systems reviewed are Neg Respiratory: Positive: Shortness of Breath Neurologic: Positive: Dizziness Physical Exam Narrative GENERAL: Awake, alert, anxious, moderate distress SKIN: Focused skin assessment warm/dry. Pale HEAD: Atraumatic. Normocephalic. EYES: Pupils equal and round. No scleral icterus. No injection or drainage. ENT: No nasal bleeding or discharge. Mucous membranes pink and moist. NECK: Trachea midline. No JVD. CARDIOVASCULAR: Regular rate and rhythm. Tachycardia No murmur appreciated. RESPIRATORY: No accessory muscle use. Clear to auscultation. Breath sounds equal bilaterally. GASTROINTESTINAL: Abdomen soft, non-tender, nondistended. Hepatic and splenic margins not palpable. MUSCULOSKELETAL: No obvious deformities. No clubbing. No cyanosis. No edema. NEUROLOGICAL: Awake and alert. No obvious cranial nerve deficits. Motor grossly within normal limits. Normal speech. PSYCHIATRIC: Appropriate mood and affect; insight and judgment normal. Data Data Last Documented VS Orders Orders Electrocardiogram (07/07/17 10:05) Basic Metabolic Panel (Bmp) (07/07/17 10:05) Ckmb (Isoenzyme) Profile (07/07/17 10:05) Complete Blood Count With Diff (07/07/17 10:05) Magnesium (Mg) (07/07/17 10:05) Prothrombin Time / Inr (Pt) (07/07/17 10:05) Troponin I (07/07/17 10:05) Chest, Single Ap (07/07/17 10:05) Ecg Monitoring (07/07/17 10:05) Bilateral Bp Monitoring (07/07/17 10:05) Iv Access Insert/Monitor (07/07/17 10:05) Oximetry (07/07/17 10:05) Oxygen Administration (07/07/17 10:05) Sodium Chlorid 0.9% 500 Ml Inj (Ns 500 M (07/07/17 10:15) Adenosine Inj (Adenocard Inj) (07/07/17 10:07) Adenosine Inj (Adenocard Inj) (07/07/17 10:09) Diltiazem Inj (Cardizem Inj) (07/07/17 10:11) Diltiazem Inj (Cardizem Inj) (07/07/17 10:15) Vital Signs (Adult) Q15MX4,Q4H (07/07/17 10:25) Shiatsu Therapist / Telemetry MAICOL.Q8H (07/07/17 10:25) Cardiac Rhythm MAICOL.Q8H (07/07/17 10:25) Notify Dr: Other (07/07/17 10:25) Diltiazem Inj (Cardizem Inj) (07/07/17 10:30) Heparin Inj (Heparin Inj) (07/07/17 11:00) Heparin Inj (Heparin Inj) (07/07/17 17:00) Heparin Inj (Heparin Inj) (07/07/17 17:00) Heparin-D5w 25,000 U/250 Ml (Heparin-D5w (07/07/17 11:00) Act Partial Throm Time (Ptt) (07/07/17 10:49) Act Partial Throm Time (Ptt) (07/07/17 17:49) Occult Blood (Hemoccult) Stool (07/07/17 10:49) Adenosine Inj (Adenocard Inj) (07/07/17 11:00) Adenosine Inj (Adenocard Inj) (07/07/17 11:00) Heparin-D5w 25,000 U/250 Ml (Heparin-D5w (07/07/17 12:00) Admit Order (Ed Use Only) (07/07/17 12:12) Labs Laboratory Tests Test 07/07/17 10:00 White Blood Count 12.7 TH/MM3 Red Blood Count 3.77 MIL/MM3 Hemoglobin 11.6 GM/DL Hematocrit 33.7 % Mean Corpuscular Volume 89.3 FL Mean Corpuscular Hemoglobin 30.8 PG Mean Corpuscular Hemoglobin Concent 34.5 % Red Cell Distribution Width 14.5 % Platelet Count 242 TH/MM3 Mean Platelet Volume 7.9 FL Neutrophils (%) (Auto) 75.4 % Lymphocytes (%) (Auto) 8.8 % Monocytes (%) (Auto) 14.1 % Eosinophils (%) (Auto) 1.5 % Basophils (%) (Auto) 0.2 % Neutrophils # (Auto) 9.6 TH/MM3 Lymphocytes # (Auto) 1.1 TH/MM3 Monocytes # (Auto) 1.8 TH/MM3 Eosinophils # (Auto) 0.2 TH/MM3 Basophils # (Auto) 0.0 TH/MM3 CBC Comment DIFF FINAL Differential Comment Prothrombin Time 12.0 SEC Prothromb Time International Ratio 1.2 RATIO Activated Partial Thromboplast Time 29.1 SEC Blood Urea Nitrogen 18 MG/DL Creatinine 1.32 MG/DL Random Glucose 294 MG/DL Calcium Level 9.3 MG/DL Magnesium Level 2.1 MG/DL Sodium Level 135 MEQ/L Potassium Level 4.3 MEQ/L Chloride Level 98 MEQ/L Carbon Dioxide Level 28.6 MEQ/L Anion Gap 8 MEQ/L Estimat Glomerular Filtration Rate 53 ML/MIN Total Creatine Kinase 44 U/L Troponin I LESS THAN 0.02 NG/ML MDM Medical Decision Making Medical Screen Exam Complete: Yes Emergency Medical Condition: Yes Medical Record Reviewed: Yes Interpretation(s) Twelve-lead EKG is reviewed by me. Atrial flutter versus with 2-1 block versus tachycardia, right bundle branch block, right axis deviation. Heart rate of 167 bpm. Differential Diagnosis Atrial flutter with 2-1 block, atrial fibrillation, SVT Narrative Course 12:17 PM patient initially was given IV adenosine 6 mg followed by 12 mg. Both times he achieved a cause with slowing down of the heart rate for brief second after which it went back to the tachycardia. Eventually given 20 mg of IV Cardizem that slowed his heart rate down into the 80s. Repeat EKG showed A. fib with a flutter. Patient was started on Cardizem drip and heparin bolus and drip since this is a new onset A. fib/A flutter. The test results of back and within acceptable limit. I have admitted him to the hospitalist. I've explained this to the patient and he understands. Critical Care Narrative Aggregate critical care time was 45 minutes. Time to perform other separately billable procedures was not included in the critical care time. My time did not include minutes spent treating any other patients simultaneously or on activities that did not directly contribute to the patient's treatment. The services I provided to this patient were to treat and/or prevent clinically significant deterioration that could result in: Atrial flutter with 2-1 block, new onset A. fib/A flutter, heparin bolus and drip, Cardizem bolus and drip I provided critical care services requiring my management, as noted below: Chart data review, documentation time, medication orders and management, vital sign assessments/reviewing monitor data, ordering and reviewing lab tests, ordering and interpreting/reviewing x-rays and diagnostic studies, care of the patient and discussion of the patient with the admitting physicians. Procedures EKG Prior to Arrival: No Diagnosis Primary Impression: Atrial flutter Qualified Codes: I48.3 - Typical atrial flutter Additional Impression: New onset a-fib Admitting Information Admitting Physician Requests: Admit Scripts Amiodarone (Amiodarone) 200 Mg Tab 200 MG PO DAILY for Regulate Heart Beat, #30 TAB 0 Refills Prov: Sridevi Knowles MD R1 07/08/17 Aspirin (Px Aspirin) 325 Mg Tab 325 MG PO DAILY for 30 Days, #30 TAB Prov: Sridevi Knowles MD R1 07/08/17 Amiodarone (Amiodarone) 200 Mg Tab 400 MG PO DAILY for 6 Days, #12 TAB Take 400mg total of amiodarone once daily for next 6 days, then switch to 200mg total daily Prov: Sridevi Knowles MD R1 07/08/17 Xenia Acharya MD Jul 07, 2017 10:03
[2017-07-07] MEDS ORDERED: ADENOSINE IV SOLN 3 MG/ML 2 ML VIAL ONE ×2 (10:07→10:09)
[2017-07-07] MEDS ORDERED: DILTIAZEM HCL 25 MG/5 ML VIAL ONE (10:11)
[2017-07-07] MEDS ORDERED: DILTIAZEM HCL 25 MG/5 ML VIAL IV ONE (10:15)
[2017-07-07] MEDS ORDERED: SODIUM CHLORIDE 0.9% FLUSH 10 ML FLUSH IVF PRN (10:15)
[2017-07-07] MEDS ORDERED: SODIUM CHLORID 0.9% 500 ML INJ 500 ML IV ONE (10:15)
[2017-07-07 10:26] LABS: AUTOMATED NEUTROPHIL # 9.6 TH/MM3 (1.8-7.7); BASOPHIL % 0.2 % (0.0-2.0); EOSINOPHIL # 0.2 TH/MM3 (0-0.4); EOSINOPHIL % 1.5 % (0.0-4.0); HEMATOCRIT 33.7 % (39.0-51.0); HEMO FLAGS DIFF FINAL; LYMPH % 8.8 % (9.0-44.0); LYMPHOCYTE # 1.1 TH/MM3 (1.0-4.8); MEAN CELL VOLUME 89.3 FL (80.0-100.0); MEAN CORPUSCULAR HEMOGLOBIN 30.8 PG (27.0-34.0); MEAN CORPUSCULAR HGB CONC 34.5 % (32.0-36.0); MONO % 14.1 % (0.0-8.0); NEUT % 75.4 % (16.0-70.0); PLATELET COUNT 242 TH/MM3 (150-450); RED BLOOD COUNT 3.77 MIL/MM3 (4.50-5.90); RED CELL DISTRIBUTION WIDTH 14.5 % (11.6-17.2); WHITE BLOOD COUNT 12.7 TH/MM3 (4.0-11.0)
[2017-07-07] MEDS ORDERED: DILTIAZEM INJ 125 MG in SODIUM CHLORIDE 0.9% INJ 100 ML IV PRN (10:30)
[2017-07-07 10:36] LABS: INTERNATIONAL NORMALIZED RATIO 1.2 RATIO
[2017-07-07 10:49] LABS: ANION GAP 8 MEQ/L (5-15); BICARBONATE 28.6 MEQ/L (21.0-32.0); BLOOD UREA NITROGEN 18 MG/DL (7-18); CHLORIDE 98 MEQ/L (98-107); GLOMERULAR FILTRATION RATE 53 ML/MIN (>89); MAGNESIUM 2.1 MG/DL (1.5-2.5); POTASSIUM 4.3 MEQ/L (3.5-5.1); SODIUM (NA) 135 MEQ/L (136-145)
--- NOTE | 2017-07-07 10:54 | RADRPT ---
EXAM DATE/TIME: 07/07/2017 10:29 [facility] COMPARISON: CHEST SINGLE AP, August 14, 2016, 10:59. INDICATIONS : Chest pain. MEDICAL HISTORY : Hypothyroidism. Hypertension. Hypercholesterolemia. Coronary artery disease. SURGICAL HISTORY : Tonsillectomy. CABG. Coronary artery stent. Left carotid surgery. Cataract removal. ENCOUNTER: Initial ACUITY: 1 day PAIN SCORE: 1/10 LOCATION: Bilateral chest FINDINGS: Heart and mediastinal structures are stable. There is evidence of prior CABG. Lung bases are hypoaerated. There is minimal atelectasis in right base. There are no consolidating ai rspace changes. CONCLUSION: 1. Mild right basal atelectasis 2. Otherwise no evidence of acute process 3. Status post CABG. Lawrence Galindo MD on July 07, 2017 at 10:51 Board Certified Radiologist. This report was verified electronically.
[2017-07-07 10:57] LABS: CREATINE KINASE 44 U/L (39-308)
[2017-07-07] MEDS ORDERED: ADENOSINE IV SOLN 3 MG/ML 2 ML VIAL IV PUSH ONE ×2 (11:00)
[2017-07-07] MEDS ORDERED: HEPARIN SODIUM - IV 10,000 UNITS/10 ML VIAL IV ONE (11:00)
[2017-07-07] MEDS ORDERED: HEPARIN-D5W 25,000 U/250 ML 250 ML IV PRN ×2 (11:00→12:00)
[2017-07-07] MEDS ORDERED: ASPI-147 PO (11:02)
[2017-07-07] MEDS ORDERED: HYDR25TA5 PO (11:02)
[2017-07-07 11:21] LABS: APTT (PATIENT) 29.1 SEC (24.3-30.1)
[2017-07-07] MEDS ORDERED: NALOXONE HCL 0.4 MG/ML AMP IV PUSH PRN ×2 (12:30→13:30)
--- NOTE | 2017-07-07 13:11 | HHI.HP ---
[facility] Service Family Medicine Primary Care Physician [facility] Admission Diagnosis A. fib with a flutter with RVR, respiratory distress Diagnoses: International Travel<30 Days: No Contact w/Intl Traveler<30days: No Known Affected Area: No History of Present Illness 72yr old M w/ hx of HTN, DM, CAD s/p 3 vessel CABG, PCI January 2017, b/l iliac stents, presents to the ED with rapid heart rate and SOB. Pt reports that he had cholecystomy and abdominal hernia repair last . The next day , his hear rate was elevated to 179 when checked at home. He called his sueding machine tender, Dr. Gambino, recommended going to local [facility] for EKG and 24 hour monitoring. He went to the primary doctor, Dr. Abel, with the EKG results and was sent immediately to the ED. He denies CP, palpitations,lightheadedness, fevers, diarrhea, abdominal pain, and N/V. He's had decreased appetite since his recent surgery due to trouble swallowing. He's lost 20 lbs in the last couple of months, went from 172-152. Review of Systems Constitutional: COMPLAINS OF: Weight loss, Change in appetite, DENIES: Fever, Night Sweats Eyes: DENIES: Diplopia Ears, nose, mouth, throat: COMPLAINS OF: Throat pain (due to recent surgery ) Respiratory: COMPLAINS OF: Shortness of breath, DENIES: Cough Cardiovascular: DENIES: Chest pain, Lower Extremity Edema Gastrointestinal: COMPLAINS OF: Difficulty Swallowing, DENIES: Abdominal pain, Diarrhea, Nausea, Vomiting Genitourinary: DENIES: Dysuria Musculoskeletal: DENIES: Muscle aches Hematologic/lymphatic: DENIES: Lymphadenopathy Neurologic: DENIES: Headache Psychiatric: DENIES: Confusion Past Family Social History Past Medical History Diabetes type 2 History of CAD status PCI of the left circumflex in July 2016 Bilateral iliac stenting recently 05/11/17 Hypertension Hyperlipidemia Diabetes type 2 insulin-requiring Hypothyroidism B-12 deficiency Past Surgical History Left carotid endarterectomy in 2005 CABG in 2002 Bilateral cataract surgery 5 years ago History of tonsillectomy Reported Medications Reported Meds & Active Scripts Active Metoprolol Tartrate 75 Mg Tab 75 Mg PO BID Norvasc (Amlodipine Besylate) 10 Mg Tab 10 Mg PO DAILY Plavix (Clopidogrel Bisulfate) 75 Mg Tab 75 Mg PO DAILY Reported Hydrochlorothiazide 25 Mg Tab 25 Mg PO DAILY Ecotrin Low Strength (Aspirin) 81 Mg Tabdr 81 Mg PO DAILY Vitamin C (Ascorbic Acid) 250 Mg Tab 250 Mg PO Rosuvastatin (Rosuvastatin Calcium) 20 Mg Tab 10 Mg PO HS Lisinopril 40 Mg Tab 40 Mg PO DAILY Metformin ER (Metformin HCl) 1,000 Mg Porsha 1,000 Mg PO DAILY With evening meal Cyanocobalamin Inj (Cyanocobalamin) 1,000 Mcg/Ml Inj 1,000 Mcg IM Q30D Nitroglycerin SL (Nitroglycerin) 0.4 Mg Subl 0.4 Mg SL DIRECTED PRN ONE TABLET UNDER THE TONGUE NEEDED FOR CHEST PAIN, MAY REPEAT EVERY FIVE MINUTES FOR A TOTAL OF 3 DOSES OR CALL 911 IF NO RELIEF Levothyroxine (Levothyroxine Sodium) 25 Mcg Tab 25 Mcg PO DAILY Gabapentin 300 Mg Cap 300 Mg PO BID Aspirin 81 Mg Chew 81 Mg CHEW DAILY Magnesium Oxide 400 Mg Cap 1 Cap PO DAILY Novolin 70-30 Inj (Insulin Human Isoph/Insulin Regular) 1,000 Unit/10 Ml Vial 50 Units SQ HS Novolin 70-30 Inj (Insulin Human Isoph/Insulin Regular) 1,000 Unit/10 Ml Vial 66 Units SQ DAILY Allergies: Coded Allergies: No Known Allergies (Unverified Allergy, Unknown, 07/07/17) Family History Dad at 68 from fire accident Mom at 86 from heart failure Social History - [employer] and [employer]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 , 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, 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 heavy drinker in the past quit 32 yrs ago occasional MJ use Physical Exam Vital Signs Vital Signs Date Time Temp Pulse Resp B/P (MAP) Pulse Ox O2 Delivery O2 Flow Rate FiO2 07/07/17 12:56 81 18 129/60 (83) 99 Nasal Cannula 2.00 07/07/17 11:35 99 18 112/57 (75) 97 Nasal Cannula 2.00 07/07/17 11:22 123 111/56 07/07/17 11:07 90 18 121/55 (77) 97 Nasal Cannula 2.00 07/07/17 10:45 90 18 109/58 (75) 99 Nasal Cannula 2.00 07/07/17 10:27 83 18 113/55 (74) 100 Nasal Cannula 4.00 07/07/17 10:25 95 18 96/49 (65) 100 Nasal Cannula 4.00 07/07/17 10:22 100 Nasal Cannula 4.00 07/07/17 10:22 100 Nasal Cannula 4.00 07/07/17 10:20 167 20 108/68 (81) 100 Nasal Cannula 4.00 07/07/17 10:16 164 20 106/61 (76) 100 Nasal Cannula 4.00 07/07/17 10:14 165 18 107/65 (79) 100 Nasal Cannula 4.00 07/07/17 10:12 166 18 131/58 (82) 97 Room Air 07/07/17 10:00 168 18 98 Room Air 07/07/17 09:37 98.1 169 17 98/62 (74) 99 Room Air Physical Exam GENERAL: pleasant elderly man lying in bed, in NAD SKIN: No rashes, ecchymoses or lesions. Cool and dry. HEAD: Atraumatic. Normocephalic. EYES: PERRLA, EOMI ENT: Throat clear NECK: Trachea midline. No JVD or lymphadenopathy. No carotid bruits. CARDIOVASCULAR: Regular rate and rhythm without murmurs, gallops, or rubs. RESPIRATORY: Clear to auscultation. Breath sounds equal bilaterally. No wheezes , rales, or rhonchi. GASTROINTESTINAL: Abdomen soft, non-tender, nondistended. No hepato-splenomegaly , or palpable masses. No guarding. MUSCULOSKELETAL: Extremities without clubbing, cyanosis, or edema. No joint tenderness, effusion, or edema noted. NEUROLOGICAL: Awake and alert. Oriented x3. Laboratory Laboratory Tests Test 07/07/17 10:00 White Blood Count 12.7 Red Blood Count 3.77 Hemoglobin 11.6 Hematocrit 33.7 Mean Corpuscular Volume 89.3 Mean Corpuscular Hemoglobin 30.8 Mean Corpuscular Hemoglobin Concent 34.5 Red Cell Distribution Width 14.5 Platelet Count 242 Mean Platelet Volume 7.9 Neutrophils (%) (Auto) 75.4 Lymphocytes (%) (Auto) 8.8 Monocytes (%) (Auto) 14.1 Eosinophils (%) (Auto) 1.5 Basophils (%) (Auto) 0.2 Neutrophils # (Auto) 9.6 Lymphocytes # (Auto) 1.1 Monocytes # (Auto) 1.8 Eosinophils # (Auto) 0.2 Basophils # (Auto) 0.0 CBC Comment DIFF FINAL Differential Comment Prothrombin Time 12.0 Prothromb Time International Ratio 1.2 Activated Partial Thromboplast Time 29.1 Blood Urea Nitrogen 18 Creatinine 1.32 Random Glucose 294 Calcium Level 9.3 Magnesium Level 2.1 Sodium Level 135 Potassium Level 4.3 Chloride Level 98 Carbon Dioxide Level 28.6 Anion Gap 8 Estimat Glomerular Filtration Rate 53 Total Creatine Kinase 44 Troponin I LESS THAN 0.02 Result Diagram: 07/07/17 1000 07/07/17 1000 Imaging Last Impressions Chest X-Ray 07/07/17 1005 Signed Impressions: Service Date/Time: , July 07, 2017 10:29 - CONCLUSION: 1. Mild right basal atelectasis 2. Otherwise no evidence of acute process 3. Status post CABG. MD Amari Rodriguez VTE Risk Assessment Amari VTE Risk Assessment: Mod/High Risk (score >= 2) Amari Risk Assessment Model Point Value = 1 Point Value = 2 Point Value = 3 Point Value = 5 Age 41-60 Minor surgery BMI > 25 kg/m2 Swollen legs Varicose veins or History of unexplained or recurrent spontaneous Oral contraceptives or hormone replacement Sepsis (< 1 month) Serious lung disease, including pneumonia (< 1 month) Abnormal pulmonary function Acute myocardial infarction Congestive heart failure (< 1 month) History of inflammatory bowel disease Medical patient at bed rest Age 61-74 Arthroscopic surgery Major open surgery (> 45 min) Laparoscopic surgery (> 45 min) Malignancy Confined to bed (> 72 hours) Immobilizing plaster cast Central venous access Age >= 75 History of VTE Family history of VTE Factor V Leiden Prothrombin [id number] Lupus anticoagulant Anticardiolipin antibodies Elevated serum homocysteine Heparin-induced thrombocytopenia Other congenital or acquired thrombophilia Stroke (< 1 month) Elective arthroplasty Hip, pelvis, or leg fracture Acute spinal cord injury (< 1 month) Prophylaxis Regimen Total Risk Factor Score Risk Level Prophylaxis Regimen 0-1 Low Early ambulation 2 Moderate Order ONE of the following: *Sequential Compression Device (SCD) *Heparin 5000 units SQ BID 3-4 Higher Order ONE of the following medications: *Heparin 5000 units SQ TID *Enoxaparin/Lovenox 40 mg SQ daily (WT < 150 kg, CrCl > 30 mL/min) *Enoxaparin/Lovenox 30 mg SQ daily (WT < 150 kg, CrCl > 10-29 mL/min) *Enoxaparin/Lovenox 30 mg SQ BID (WT < 150 kg, CrCl > 30 mL/min) AND/OR *Sequential Compression Device (SCD) 5 or more Highest Order ONE of the following medications: *Heparin 5000 units SQ TID (Preferred with Epidurals) *Enoxaparin/Lovenox 40 mg SQ daily (WT < 150 kg, CrCl > 30 mL/min) *Enoxaparin/Lovenox 30 mg SQ daily (WT < 150 kg, CrCl > 10-29 mL/min) *Enoxaparin/Lovenox 30 mg SQ BID (WT < 150 kg, CrCl > 30 mL/min) AND *Sequential Compression Device (SCD) Assessment and Plan Assessment and Plan 2yr old M w/ hx of HTN, DM, CAD s/p 3 vessel CABG, PCI January 2017, b/l iliac stents, presents to the ED with rapid heart rate and SOB. EKG revealed new onset A flutter. Admitted for further evaluation and treatment. Code Status Full Code Discussed Condition With Dr. De La Vega Problem List: (1) Atrial flutter ICD Codes: I48.92 - Unspecified atrial flutter Status: Acute Plan: Atrial flutter, HR 160s present in the ED. Patient received adenosine 2 in the ED with no lasting improvement in heart rate. The patient has received IV Cardizem and currently back in NSR, rate 80s. Follows with [facility]ology [facility]. Cardiology consulted, appreciate recs Currently NSR with controlled rate on Cardizem gtt, change to oral Cardizem. On heparin gtt, can change to aspirin 325mg vs coumadin vs novel agent per primary service. Check echo. CAD: Previous angioplasty and stenting 08/10. Asymptomatic. Continue Plavix 75 mg PO daily PVD: Previous angioplasty and stenting 05/10. Stable. Continue Plavix. (2) MARY KATE (acute kidney injury) ICD Codes: N17.9 - Acute kidney failure, unspecified Plan: Cr elevated at 1.32H continue to monitor 110mls/hr MIVFs (3) HTN (hypertension) ICD Codes: I10 - Essential (primary) hypertension Plan: Held home HTN meds (4) Hypothyroidism ICD Codes: E03.9 - Hypothyroidism, unspecified Status: Chronic Plan: -Continue Levothyroxine 25mcg tab daily (5) Diabetes mellitus, type 2 ICD Codes: E11.9 - Type 2 diabetes mellitus without complications Status: Chronic Plan: -Held home insulin Reports taking 66 units in AM, 50 units in PM -Start Levemir 10 units daily -Low SS (6) Diabetic neuropathy ICD Codes: E11.40 - Type 2 diabetes mellitus with diabetic neuropathy, unspecified Status: Chronic Plan: -Continue Gabapentin 300mg PO BID (7) Nutrition, metabolism, and development symptoms ICD Codes: R63.8 - Other symptoms and signs concerning food and fluid intake Plan: Diet: heart healthy Fluids: 110mls/ hr NS vitals q4h, monitor I & Os GI ppx: protonix 40 mg PO daily Physician Certification 2 Midnight Certification Type: Admission for Inpatient Services Order for Inpatient Services The services are ordered in accordance with Medicare regulations or non- Medicare payer requirements, as applicable. In the case of services not specified as inpatient-only, they are appropriately provided as inpatient services in accordance with the 2-midnight benchmark. Estimated LOS (days): 2 2 days is the estimated time the patient will need to remain in the hospital, assuming treatment plan goals are met and no additional complications. Post-Hospital Plan: Home Problem Qualifiers (1) Atrial flutter: Qualified Codes: I48.3 - Typical atrial flutter Sridevi Knowles MD R1 Jul 07, 2017 13:11
[2017-07-07] MEDS ORDERED: SODIUM CHLORIDE 0.9% FLUSH 10 ML FLUSH IV FLUSH PRN (13:30)
[2017-07-07] MEDS ORDERED: DEXTROSE 50% IN WATER 50 ML VIAL(D50) IV PUSH PRN (13:30)
[2017-07-07] MEDS ORDERED: MAGNESIUM HYDROXIDE SUSP 30 ML CUP PO PRN (13:30)
[2017-07-07] MEDS ORDERED: ONDANSETRON HCL 4 MG/2 ML VIAL IVP PRN (13:30)
[2017-07-07] MEDS: SODIUM CHLORIDE 0.9% FLUSH 10 ML FLUSH IV FLUSH SCH ×2 (13:30→21:00)
[2017-07-07] MEDS ORDERED: LACTULOSE SYRUP 20 GM/30 ML CUP PO PRN (13:30)
[2017-07-07] MEDS ORDERED: BISACODYL 10 MG SUPP RECTAL PRN (13:30)
[2017-07-07] MEDS ORDERED: SENNOSIDES 8.6 MG TAB PO PRN (13:30)
[2017-07-07] MEDS ORDERED: ACETAMINOPHEN 325 MG TAB PO PRN (13:30)
[2017-07-07] MEDS ORDERED: GLUCAGON 1 MG/ML VIAL OTHER PRN (13:30)
[2017-07-07] MEDS: DOCUSATE SODIUM 50 MG/SENNA 8.6 MG TAB PO SCH ×2 (14:00→21:00)
--- NOTE | 2017-07-07 15:12 | PD.CONS ---
HPI Consult Requested By Primary Care Physician [facility] History of Present Illness 72yr old M w/ hx of HTN, DM, CAD s/p 3 vessel CABG, PCI 08/10, b/l iliac stents 05/10 who presented with rapid heart rate. The patient had gallbladder surgery last week with biliary tube removed 4 days ago. He monitors his blood pressure at home daily. 3 days ago he noticed his heart rate was up to 179. He has noticed some dizziness with standing and feeling more tired for the past 3 days. He denies any chest pain, shortness breath, palpitations. He denies any prior history of arrhythmia. Had atrial flutter, rate 160s upon presentation to the ED. The patient received adenosine 2 in the ED with no lasting improvement in heart rate. The patient has received IV Cardizem and currently back in NSR, rate 80s. Follows with cardiology at the [facility]. (Rajinder Borrero) Review of Systems Negative except as stated in history of present illness (Rajinder Borrero) Past Family Social History Allergies: Coded Allergies: No Known Allergies (Unverified Allergy, Unknown, 07/07/17) Past Medical History Diabetes type 2 History of CAD status PCI of the left circumflex in July 2016 Bilateral iliac stenting recently 05/11/17 Hypertension Hyperlipidemia Diabetes type 2 insulin-requiring Hypothyroidism B-12 deficiency Past Surgical History Left carotid endarterectomy in 2005 CABG in 2002 Bilateral cataract surgery 5 years ago History of tonsillectomy Reported Medications Reported Meds & Active Scripts Active Metoprolol Tartrate 75 Mg Tab 75 Mg PO BID Norvasc (Amlodipine Besylate) 10 Mg Tab 10 Mg PO DAILY Plavix (Clopidogrel Bisulfate) 75 Mg Tab 75 Mg PO DAILY Reported Hydrochlorothiazide 25 Mg Tab 25 Mg PO DAILY Ecotrin Low Strength (Aspirin) 81 Mg Tabdr 81 Mg PO DAILY Vitamin C (Ascorbic Acid) 250 Mg Tab 250 Mg PO Rosuvastatin (Rosuvastatin Calcium) 20 Mg Tab 10 Mg PO HS Lisinopril 40 Mg Tab 40 Mg PO DAILY Metformin ER (Metformin HCl) 1,000 Mg Porsha 1,000 Mg PO DAILY With evening meal Cyanocobalamin Inj (Cyanocobalamin) 1,000 Mcg/Ml Inj 1,000 Mcg IM Q30D Nitroglycerin SL (Nitroglycerin) 0.4 Mg Subl 0.4 Mg SL DIRECTED PRN ONE TABLET UNDER THE TONGUE NEEDED FOR CHEST PAIN, MAY REPEAT EVERY FIVE MINUTES FOR A TOTAL OF 3 DOSES OR CALL 911 IF NO RELIEF Levothyroxine (Levothyroxine Sodium) 25 Mcg Tab 25 Mcg PO DAILY Gabapentin 300 Mg Cap 300 Mg PO BID Aspirin 81 Mg Chew 81 Mg CHEW DAILY Magnesium Oxide 400 Mg Cap 1 Cap PO DAILY Novolin 70-30 Inj (Insulin Human Isoph/Insulin Regular) 1,000 Unit/10 Ml Vial 50 Units SQ HS Novolin 70-30 Inj (Insulin Human Isoph/Insulin Regular) 1,000 Unit/10 Ml Vial 66 Units SQ DAILY Active Ordered Medications Current Medications Medications (Trade) Dose Ordered Sig/Russell Route Start Time Stop Time Status Last Admin Diltiazem HCl 125 mg/Sodium Chloride 125 ml @ 5 mls/hr TITRATE PRN IV 07/07/17 10:30 07/07/17 11:22 (Heparin Inj) 5,000 units UNSCH PRN IV 07/07/17 17:00 (Heparin Inj) 2,500 units UNSCH PRN IV 07/07/17 17:00 Heparin Sodium/ Dextrose 250 ml @ 8 mls/hr TITRATE PRN IV 07/07/17 12:00 07/07/17 12:13 Sodium Chloride 1,000 ml @ 110 mls/hr Q9H6M IV 07/07/17 13:30 (NS Flush) 2 ml UNSCH PRN IV FLUSH 07/07/17 13:30 (NS Flush) 2 ml BID IV FLUSH 07/07/17 13:30 (Tylenol) 650 mg Q4H PRN PO 07/07/17 13:30 (Zofran Inj) 4 mg Q6H PRN IVP 07/07/17 13:30 (Narcan Inj) 0.4 mg UNSCH PRN IV PUSH 07/07/17 13:30 (Mariela-Colace) 1 tab BID PO 07/07/17 14:00 (Milk Of Magnesia Liq) 30 ml Q12H PRN PO 07/07/17 13:30 (Senokot) 17.2 mg Q12H PRN PO 07/07/17 13:30 (Dulcolax Supp) 10 mg DAILY PRN RECTAL 07/07/17 13:30 (Lactulose Liq) 30 ml DAILY PRN PO 07/07/17 13:30 (Aspirin Chew) 81 mg DAILY CHEW 07/08/17 09:00 (Plavix) 75 mg DAILY PO 07/08/17 09:00 (Neurontin) 300 mg BID PO 07/07/17 21:00 (Lipitor) 20 mg HS PO 07/07/17 21:00 (Protonix) 40 mg DAILY PO 07/07/17 14:00 (D50w (Vial) Inj) 50 ml UNSCH PRN IV PUSH 07/07/17 13:30 (Glucagon Inj) 1 mg UNSCH PRN OTHER 07/07/17 13:30 (NovoLOG SUPPLEMENTAL SCALE) 1 ACHS SLIDING SCALE SQ 07/07/17 17:00 (Levemir Inj) 10 units BID SQ 07/07/17 21:00 Family History Dad at 68 from fire accident Mom at 86 from heart failure Social History - [employer] 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 , 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, 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 heavy 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 in the past quit 32 yrs ago occasional MJ use (Rajinder Borrero) Physical Exam Vital Signs Vital Signs Date Time Temp Pulse Resp B/P (MAP) Pulse Ox O2 Delivery O2 Flow Rate FiO2 07/07/17 13:42 81 18 100/53 (69) 98 Nasal Cannula 2.00 07/07/17 13:15 80 18 131/59 (83) 98 Nasal Cannula 2.00 07/07/17 12:56 81 18 129/60 (83) 99 Nasal Cannula 2.00 07/07/17 11:35 99 18 112/57 (75) 97 Nasal Cannula 2.00 07/07/17 11:22 123 111/56 07/07/17 11:07 90 18 121/55 (77) 97 Nasal Cannula 2.00 07/07/17 10:45 90 18 109/58 (75) 99 Nasal Cannula 2.00 07/07/17 10:27 83 18 113/55 (74) 100 Nasal Cannula 4.00 07/07/17 10:25 95 18 96/49 (65) 100 Nasal Cannula 4.00 07/07/17 10:22 100 Nasal Cannula 4.00 07/07/17 10:22 100 Nasal Cannula 4.00 07/07/17 10:20 167 20 108/68 (81) 100 Nasal Cannula 4.00 07/07/17 10:16 164 20 106/61 (76) 100 Nasal Cannula 4.00 07/07/17 10:14 165 18 107/65 (79) 100 Nasal Cannula 4.00 07/07/17 10:12 166 18 131/58 (82) 97 Room Air 07/07/17 10:00 168 18 98 Room Air 07/07/17 09:37 98.1 169 17 98/62 (74) 99 Room Air Physical Exam GENERAL: Well-developed well-nourished. In no acute distress. NECK: No carotid bruits. No JVD. CARDIOVASCULAR: Regular rate and rhythm. No murmur appreciated. RESPIRATORY: No accessory muscle use. Clear to auscultation. Breath sounds equal bilaterally. ABDOMEN: Postsurgical changes MUSCULOSKELETAL: No clubbing or cyanosis. No edema. NEUROLOGICAL: Awake and alert. Normal speech. Laboratory Laboratory Tests Test 07/07/17 10:00 White Blood Count 12.7 Red Blood Count 3.77 Hemoglobin 11.6 Hematocrit 33.7 Mean Corpuscular Volume 89.3 Mean Corpuscular Hemoglobin 30.8 Mean Corpuscular Hemoglobin Concent 34.5 Red Cell Distribution Width 14.5 Platelet Count 242 Mean Platelet Volume 7.9 Neutrophils (%) (Auto) 75.4 Lymphocytes (%) (Auto) 8.8 Monocytes (%) (Auto) 14.1 Eosinophils (%) (Auto) 1.5 Basophils (%) (Auto) 0.2 Neutrophils # (Auto) 9.6 Lymphocytes # (Auto) 1.1 Monocytes # (Auto) 1.8 Eosinophils # (Auto) 0.2 Basophils # (Auto) 0.0 CBC Comment DIFF FINAL Differential Comment Prothrombin Time 12.0 Prothromb Time International Ratio 1.2 Activated Partial Thromboplast Time 29.1 Blood Urea Nitrogen 18 Creatinine 1.32 Random Glucose 294 Calcium Level 9.3 Magnesium Level 2.1 Sodium Level 135 Potassium Level 4.3 Chloride Level 98 Carbon Dioxide Level 28.6 Anion Gap 8 Estimat Glomerular Filtration Rate 53 Total Creatine Kinase 44 Troponin I LESS THAN 0.02 (Rajinder Borrero) Result Diagram: 07/07/17 1000 07/07/17 1000 Imaging Last Impressions Chest X-Ray 07/07/17 1005 Signed Impressions: Service Date/Time: June 10:29 - CONCLUSION: 1. Mild right basal atelectasis 2. Otherwise no evidence of acute process 3. Status post CABG. Lawrence Galindo MD (Rajinder Borrero) Assessment and Plan Assessment and Plan 72yr old M w/ hx of HTN, DM, CAD s/p 3 vessel CABG, PCI 08/10, b/l iliac stents 05/10 who presented with rapid heart rate New onset atrial flutter: Currently NSR with controlled rate on Cardizem gtt, change to oral Cardizem. On heparin gtt, can change to aspirin 325mg vs coumadin vs novel agent per primary service. Check echo. CAD: Previous angioplasty and stenting 08/10. Asymptomatic. Continue Plavix. PVD: Previous angioplasty and stenting 05/10. Stable. Continue Plavix. Discharge planning. Cardiology will sign off at this time, can call with any further questions. (Rajinder Borrero) Assessment and Plan increase asa 325 cont plavix can discuss anticoagulation with outpatient demographer. amiodarone 400 mg daily x 1 week followed by 200 mg daily to maintain sinus rhythm FU in OPD with demographer call with questions.. (Santos Haider MD) Rajinder Borrero Jul 07, 2017 15:12 Santos Haider MD Jul 07, 2017 17:06
[2017-07-07] MEDS: SODIUM CHLOR 0.9% 1000 ML INJ 1,000 ML IV SCH ×2 (16:01→22:33)
[2017-07-07] MEDS: PANTOPRAZOLE SOD 40 MG DELAYED RELEASE TAB PO SCH (16:01)
--- NOTE | 2017-07-07 16:02 | EKG ---
Date Performed: 07/07/2017 Time Performed: 10:01:50 PTAGE: 72 years EKG: The rhythm is probably 2:1 atrial flutter RIGHT BUNDLE BRANCH BLOCK MODERATE T-WAVE ABNORMA LITY, CONSIDER INFERIOR ISCHEMIA ABNORMAL ECG INTERPRETATION BASED ON A DEFAULT AGE OF 40 YEARS PREVIOUS TRACING : 05/22/2017 20.59 A rhythm strip is advised for more specific determina tion, but the apparent atrial flutter is new since the prior tracing. There has been a significant in crease in the diffuse nonspecific ST-T wave changes. DOCTOR: Larisa Gonzales Interpretating Date/Time 07/07/2017 16:00:58
[2017-07-07] MEDS ORDERED: HEPARIN SODIUM - IV 10,000 UNITS/10 ML VIAL IV PRN ×2 (17:00)
[2017-07-07] MEDS: INSULIN ASPART SUPPLEMENTAL SCALE SQ SCH ×2 (17:53→21:00)
[2017-07-07] MEDS ORDERED: ATORVASTATIN 20 MG TAB PO SCH (21:00)
[2017-07-07] MEDS: INSULIN DETEMIR 100 UNITS/ML VIAL SQ SCH (21:17)
[2017-07-07] MEDS: GABAPENTIN 300 MG CAP PO SCH (21:17)
[2017-07-08] VITALS: BP 158/75; PULSE 70; PULSE 75; RESP 20; TEMP 98.8; O2SAT 94
[2017-07-08 02:11] LABS: HEMATOCRIT 27.3 % (39.0-51.0); MEAN CORPUSCULAR HGB CONC 33.7 % (32.0-36.0); PLATELET COUNT 149 TH/MM3 (150-450); RED BLOOD COUNT 3.07 MIL/MM3 (4.50-5.90); RED CELL DISTRIBUTION WIDTH 14.8 % (11.6-17.2); WHITE BLOOD COUNT 6.3 TH/MM3 (4.0-11.0)
[2017-07-08 02:15] LABS: HEMO FLAGS AUTO DIFF
[2017-07-08 02:23] LABS: APTT (PATIENT) 49.7 SEC (24.3-30.1)
[2017-07-08 02:39] LABS: ALT (GPT) 23 U/L (12-78); ANION GAP 6 MEQ/L (5-15); AST (GOT) 17 U/L (15-37); BICARBONATE 28.3 MEQ/L (21.0-32.0); BLOOD UREA NITROGEN 10 MG/DL (7-18); CHLORIDE 107 MEQ/L (98-107); GLOMERULAR FILTRATION RATE 92 ML/MIN (>89); POTASSIUM 3.7 MEQ/L (3.5-5.1); SODIUM (NA) 141 MEQ/L (136-145)
[2017-07-08 02:45] LABS: ALKALINE PHOSPHATASE 138 U/L (45-117); TOTAL BILIRUBIN ADULT 0.4 MG/DL (0.2-1.0)
[2017-07-08 03:11] LABS: BANDS 4 % (0-6); EOSINOPHILS 4 % (0-4); METAMYELOCYTES 1 % (0-1); NEUTROPHIL # MANUAL DIFF 3.7 TH/MM3 (1.8-7.7); PLASMA CELLS 3 % (0-0); POLYS (SEG NEUTROPHILS) 54 % (16-70); SCAN/DIFF FINAL DIFF MANUAL; WBC DIFF SAMPLE 100
[2017-07-08 03:15] LABS: PLATELET ESTIMATE SMEAR NORMAL (NORMAL); PLATELET MORPHOLOGY NORMAL (NORMAL)
[2017-07-08 04:00] VITALS: BP 136/63; PULSE 78; PULSE 94; RESP 20; TEMP 99.1; O2SAT 93
[2017-07-08 08:00] VITALS: PULSE 81
[2017-07-08 08:04] VITALS: BP 116/58; PULSE 77; RESP 20; TEMP 98.4; O2SAT 94
[2017-07-08] MEDS ORDERED: ASPIRIN 325 MG TAB PO SCH (09:00)
[2017-07-08] MEDS ORDERED: CLOPIDOGREL 75 MG TAB PO SCH (09:00)
[2017-07-08] MEDS ORDERED: ASPIRIN 81 MG CHEW TAB CHEW SCH (09:00)
[2017-07-08] MEDS: SODIUM CHLORIDE 0.9% FLUSH 10 ML FLUSH IV FLUSH SCH (09:37)
[2017-07-08] MEDS: PANTOPRAZOLE SOD 40 MG DELAYED RELEASE TAB PO SCH (09:42)
[2017-07-08] MEDS: DOCUSATE SODIUM 50 MG/SENNA 8.6 MG TAB PO SCH (09:42)
[2017-07-08] MEDS: INSULIN DETEMIR 100 UNITS/ML VIAL SQ SCH (09:43)
[2017-07-08] MEDS: INSULIN ASPART SUPPLEMENTAL SCALE SQ SCH ×2 (09:43→12:00)
[2017-07-08] MEDS: GABAPENTIN 300 MG CAP PO SCH (09:43)
[2017-07-08] MEDS ORDERED: AMIODARONE 200 MG TAB PO SCH (10:15)
[2017-07-08] MEDS ORDERED: CALCIUM CARBONATE 500 MG CHEWABLE TAB CHEW PRN (10:30)
[2017-07-08 11:04] LABS: APTT (PATIENT) 42.5 SEC (24.3-30.1)
[2017-07-08 12:00] VITALS: PULSE 75
[2017-07-08 12:04] VITALS: BP 153/70; PULSE 78; RESP 20; TEMP 98.4; O2SAT 97
--- NOTE | 2017-07-08 12:50 | HHI.FPPN ---
Subjective Remarks No acute events overnight. Pt coming out of the bathroom. and daughter at bedside. Pt doing well this morning. Afebrile. VSS. Denies CP, palpations, SOB, abdominal pain, and N/V. (Sridevi Knowles MD R1) Objective Vitals Vital Signs Date Time Temp Pulse Resp B/P (MAP) Pulse Ox O2 Delivery O2 Flow Rate FiO2 07/08/17 12:04 98.4 78 20 153/70 (97) 97 07/08/17 08:04 98.4 77 20 116/58 (77) 94 07/08/17 04:00 99.1 78 20 136/63 (87) 93 07/08/17 04:00 94 07/08/17 00:00 98.8 75 20 158/75 (102) 94 07/08/17 00:00 70 07/07/17 23:48 95 21 07/07/17 22:00 80 07/07/17 21:45 98.6 81 20 140/62 (88) 95 07/07/17 20:51 82 20 118/ 97 07/07/17 19:44 84 16 115/61 (79) 98 Room Air 07/07/17 19:25 110 56/87 07/07/17 17:43 80 18 114/56 (75) 98 Nasal Cannula 2.00 07/07/17 16:37 78 18 111/55 (73) 98 Nasal Cannula 2.00 07/07/17 15:29 76 18 118/58 (78) 98 Nasal Cannula 2.00 07/07/17 13:42 81 18 100/53 (69) 98 Nasal Cannula 2.00 07/07/17 13:15 80 18 131/59 (83) 98 Nasal Cannula 2.00 07/07/17 12:56 81 18 129/60 (83) 99 Nasal Cannula 2.00 I/O 07/07/17 07/07/17 07/07/17 07/08/17 07/08/17 07/08/17 07:00 15:00 23:00 07:00 15:00 23:00 Intake Total 500 ml 40.6 ml 855 ml Output Total 375 ml Balance 500 ml 40.6 ml 480 ml Intake Oral 120 ml IV Total 500 ml 40.6 ml 735 ml Output Urine Total 375 ml # Voids 1 # Bowel Movements 1 (Sridevi Knowles MD R1) Result Diagram: 07/08/17 0156 07/08/17 0156 Imaging GENERAL: pleasant elderly man. walking from bathroom with assistance from SKIN: No rashes, ecchymoses or lesions. Cool and dry. HEAD: Atraumatic. Normocephalic. EYES: PERRLA, EOMI ENT: Throat clear NECK: Trachea midline. No JVD or lymphadenopathy. No carotid bruits. CARDIOVASCULAR: Regular rate and rhythm without murmurs, gallops, or rubs. RESPIRATORY: Clear to auscultation. Breath sounds equal bilaterally. No wheezes , rales, or rhonchi. GASTROINTESTINAL: Abdomen soft, non-tender, nondistended. No hepato-splenomegaly , or palpable masses. No guarding. MUSCULOSKELETAL: Extremities without clubbing, cyanosis, or edema. No joint tenderness, effusion, or edema noted. NEUROLOGICAL: Awake and alert. Oriented x3. (Sridevi Knowles MD R1) A/P Assessment and Plan 2yr old M w/ hx of HTN, DM, CAD s/p 3 vessel CABG, PCI January 2017, b/l iliac stents, presents to the ED with rapid heart rate and SOB. EKG revealed new onset A flutter. Admitted for further evaluation and treatment. (Sridevi Knowles MD R1) Attending Attestation Medical rounds were performed this morning with medical residents, case discussed in detail,EMR reviewed, patient seen and examined, agree with above documentation, see Orders.Answered and daughters questions patient stable for discharge (Davey Beach MD) Problem List: (1) Atrial flutter ICD Codes: I48.92 - Unspecified atrial flutter Status: Acute Plan: Atrial flutter, HR 160s present in the ED. Patient received adenosine 2 in the ED with no lasting improvement in heart rate. The patient has received IV Cardizem and currently back in NSR, rate 80s. Follows with cardiology at the [facility]. Cardiology consulted, appreciate recs Patient will be discharge with amiodarone 400 mg daily x 1 week followed by 200 mg daily to maintain sinus rhythm Increase Aspirin to 325mg PO daily CAD: Previous angioplasty and stenting 08/10. Asymptomatic. Continue Plavix 75 mg PO daily PVD: Previous angioplasty and stenting 05/10. Stable. Continue Plavix. (2) MARY KATE (acute kidney injury) ICD Codes: N17.9 - Acute kidney failure, unspecified Plan: Cr elevated at 1.32H Normalized with MIVFs (3) HTN (hypertension) ICD Codes: I10 - Essential (primary) hypertension Plan: -Restart home HTN Meds: Metoprolol 75 mg Tab, Amlodipine 10mg Tab, Lisinopril 40mg Tab, HCTZ 25 mg Tab -Advised patient to take extra dose of metoprolol if having active chest pain, if not resolved, go to ED (4) Hypothyroidism ICD Codes: E03.9 - Hypothyroidism, unspecified Status: Chronic Plan: -Continue Levothyroxine 25mcg tab daily (5) Diabetes mellitus, type 2 ICD Codes: E11.9 - Type 2 diabetes mellitus without complications Status: Chronic Plan: -Held home insulin Reports taking 66 units in AM, 50 units in PM -Start Levemir 10 units daily -Low SS (6) Diabetic neuropathy ICD Codes: E11.40 - Type 2 diabetes mellitus with diabetic neuropathy, unspecified Status: Chronic Plan: -Continue Gabapentin 300mg PO BID (7) Nutrition, metabolism, and development symptoms ICD Codes: R63.8 - Other symptoms and signs concerning food and fluid intake Plan: Diet: heart healthy Fluids: none vitals q4h, monitor I & Os GI ppx: protonix 40 mg PO daily (Sridevi Knowles MD R1) Problem Qualifiers (1) Atrial flutter: Qualified Codes: I48.3 - Typical atrial flutter Sridevi Knowles MD R1 Jul 08, 2017 12:50 Davey Beach MD Jul 08, 2017 16:05
[2017-07-08] MEDS ORDERED: ASA325 PO (13:00)
[2017-07-08] MEDS ORDERED: AMIO200T PO ×2 (13:00)
--- NOTE | 2017-07-08 13:01 | HHI.DCPOC ---
Discharge Care Plan Diagnosis: (1) Atrial flutter (2) Diabetic neuropathy (3) Hypothyroidism (4) HTN (hypertension) (5) Diabetes mellitus, type 2 (6) MARY KATE (acute kidney injury) Goals to Promote Your Health * To prevent worsening of your condition and complications * To maintain your health at the optimal level Directions to Meet Your Goals Take your medications as prescribed Follow your dietary instruction Follow activity as directed Keep your appointments as scheduled Take your immunizations and boosters as scheduled If your symptoms worsen call your PCP, if no PCP go to Urgent Care Center or Emergency Room Smoking is Dangerous to Your Health. Avoid second hand smoke Call the 24-hour hour crisis hotline for domestic abuse at Sridevi Knowles MD R1 Jul 08, 2017 13:01
--- NOTE | 2017-07-08 16:03 | ECHRPT ---
Indication: a fib/flutter CONCLUSIONS Trace mitral valve regurgitation. Normal left ventricular size and wall thickness. The left ventricular systolic function is normal wi th an estimated ejection fraction in the range of 60-65%. Normal wall motion. Moderate mitral annular calcification. Structurally normal tricuspid valve. There is trace tricuspid valve regurgitation. The estimated pulmonary arterial pressure is 57.3 mmHg. Trileaflet aortic valve. Mild aortic valve sclerosis. Trace aortic valve regurgitation. BP: / HR: Rhythm: MEASUREMENTS (Male / Female) Normal Values Technical Quality:Good 2D ECHO LV Diastolic Diameter PLAX 4.4 cm 4.2 - 5.9 / 3.9 - 5.3 cm LV Systolic Diameter PLAX 3.3 cm IVS Diastolic Thickness 1.3 cm 0.6 - 1.0 / 0.6 - 0.9 cm LVPW Diastolic Thickness 1.0 cm 0.6 - 1.0 / 0.6 - 0.9 cm LV Relative Wall Thickness 0.5 RV Internal Dim ED PLAX 3.5 cm LVOT Diameter 2.7 cm M-MODE Aortic Root Diameter MM 2.7 cm LA Systolic Diameter MM 4.3 cm LA Ao Ratio MM 1.6 AV Cusp Separation MM 1.7 cm DOPPLER AV Peak Velocity 233.0 cm/s AV Peak Gradient 21.7 mmHg AV Mean Gradient 11.0 mmHg AV Velocity Time Integral 46.4 cm LVOT Peak Velocity 58.7 cm/s LVOT Peak Gradient 1.4 mmHg LVOT Velocity Time Integral 11.9 cm AV Area Cont Eq vti 1.5 cm AV Area Cont Eq pk 1.4 cm MV Area PHT 2.4 cm Mitral E Point Velocity 110.0 cm/s Mitral A Point Velocity 96.7 cm/s Mitral E to A Ratio 1.1 LV E' Lateral Velocity 10.7 cm/s Mitral E to LV E' Lateral Ratio 10.3 LV E' Septal Velocity 9.5 cm/s Mitral E to LV E' Septal Ratio 11.6 TR Peak Velocity 344.0 cm/s TR Peak Gradient 47.3 mmHg Right Atrial Pressure 10.0 mmHg Pulmonary Artery Systolic Pressu 57.3 mmHg Right Ventricular Systolic Press 57.3 mmHg FINDINGS LEFT VENTRICLE Normal left ventricular size and wall thickness. The left ventricular systolic function is normal wi th an estimated ejection fraction in the range of 60-65%. Normal wall motion. RIGHT VENTRICLE Normal right ventricular size and systolic function. LEFT ATRIUM The left atrial size is normal. RIGHT ATRIUM The right atrial size is normal. ATRIAL SEPTUM Normal atrial septal thickness without atrial level shunting by limited color doppler interrogation. AORTA The aortic root and proximal ascending aorta are normal in size on limited imaging. MITRAL VALVE Trace mitral valve regurgitation. Moderate mitral annular calcification. AORTIC VALVE Trileaflet aortic valve. Mild aortic valve sclerosis. Trace aortic valve regurgitation. TRICUSPID VALVE Structurally normal tricuspid valve. There is trace tricuspid valve regurgitation. The estimated pulmonary arterial pressure is 57.3 mmHg. PULMONARY VALVE No pulmonary valve regurgitation or stenosis. VESSELS The inferior vena cava is normal in size. PERICARDIUM No pericardial effusion. Jasvir Montoya MD (Electronically Signed) Final Date:08 July 2017 16:03
[2017-07-08] MEDS ORDERED: METOPROLOL TARTRATE 25 MG TAB PO SCH (21:00)
[2017-07-09] MEDS ORDERED: LISINOPRIL 20 MG TAB PO SCH (09:00)
[2017-07-09] MEDS ORDERED: HYDROCHLOROTHIAZIDE 25 MG TAB PO SCH (09:00)
--- NOTE | 2017-07-09 12:10 | EKG ---
Date Performed: 07/07/2017 Time Performed: 19:13:14 PTAGE: 72 years EKG: Sinus rhythm RIGHT BUNDLE BRANCH BLOCK ABNORMAL ECG PREVIOUS TRACING : 07/07/2017 16.04 DOCTOR: Steve Prince Interpretating Date/Time 07/09/2017 12:07:46
--- NOTE | 2017-07-09 12:16 | EKG ---
Date Performed: 07/07/2017 Time Performed: 16:04:06 PTAGE: 72 years EKG: Sinus rhythm RIGHT BUNDLE BRANCH BLOCK ABNORMAL ECG PREVIOUS TRACING : 07/07/2017 10.27 DOCTOR: Steve Prince Interpretating Date/Time 07/09/2017 12:14:59
--- NOTE | 2017-07-09 12:26 | EKG ---
Date Performed: 07/07/2017 Time Performed: 10:27:12 PTAGE: 72 years EKG: ATRIAL FLUTTER/TACHYCARDIA RIGHT BUNDLE BRANCH BLOCK ABNORMAL ECG PREVIOUS TRACING : 07/07/2017 10.01 DOCTOR: Steve Prince Interpretating Date/Time 07/09/2017 12:26:10
== END 2017-07-08 16:18 | disposition home or self-care (01) | DRG 309 ==
LOC: NEPE 09:35 → NEDA 12:15 → NEDH 16:31 → N04B 21:31
PROVIDERS: ADMIT Family Medicine; ATTEND Family Medicine
DX: I48.3 Typical atrial flutter (principal); N17.9 Acute kidney failure, unspecified; E11.40 Type 2 diabetes mellitus with diabetic neuropathy, unspecified; E11.51 Type 2 diabetes mellitus with diabetic peripheral angiopathy without gangrene; I25.10 Atherosclerotic heart disease of native coronary artery without angina pectoris; I10 Essential (primary) hypertension; E03.9 Hypothyroidism, unspecified; K21.9 Gastro-esophageal reflux disease without esophagitis; R63.0 Anorexia; R13.10 Dysphagia, unspecified; E78.5 Hyperlipidemia, unspecified; F12.90 Cannabis use, unspecified, uncomplicated; Z79.4 Long term (current) use of insulin; Z87.891 Personal history of nicotine dependence; Z95.1 Presence of aortocoronary bypass graft; Z95.5 Presence of coronary angioplasty implant and graft; Z95.828 Presence of other vascular implants and grafts
CPT/HCPCS: 71010; 80048; 80053; 82550; 82948; 83735; 84484; 85007; 85025; 85027; 85610; 85730; 92960; 93005; 93306; 96365; 96375; J0153; J1644; J1815; J7030; J7040

== ENCOUNTER 2018-03-28 19:56 | Inpatient (IN) ==
[2018-03-28] MEDS ORDERED: Sod Chloride 0.9% Inj 1,000 ML IV.SIG ONE (21:02)
[2018-03-28] MEDS ORDERED: Pantoprazole Inj 40 MG Vial IV.PUSH ONE (21:02)
--- NOTE | 2018-03-28 21:05 | ED ---
HPI General Chief complaint: Abdominal Pain Stated complaint: GI/Phy sent Time Seen by Provider: 03/28/18 20:50 History of Present Illness HPI narrative: 72-year-old male on Xarelto presents for evaluation ports that he has had dark colored stools for the past 3 days since he had bright red blood per rectum. He reports that he has had some lightheadedness for the past 2 days as well. He reports that his abdomen is felt bloated but he has had no abdominal pain. He denies vomiting, dysuria, hematuria, fevers or chills. Symptoms are moderate. He is a patient at the [facility]. He reports that he had an endoscopy and colonoscopy through the [facility] 1-2 years ago which was normal other than polyps. No other complaints. Related Data Home Medications Medication Instructions Recorded Confirmed amlodipine 5 mg PO DAILY 03/28/18 03/28/18 ascorbic acid (vitamin C) 500 mg PO DAILY 03/28/18 03/28/18 aspirin [Aspirin Low Dose] 81 mg PO DAILY 03/28/18 03/28/18 gabapentin 300 mg PO BID 03/28/18 03/28/18 insulin aspart U-100 10 unit SUB-Q TID 03/28/18 03/28/18 insulin glargine 35 unit SUB-Q DAILY 03/28/18 03/28/18 levothyroxine [Synthroid] 25 mcg PO DAILY 03/28/18 03/28/18 losartan 50 mg PO DAILY 03/28/18 03/28/18 magnesium oxide 400 mg PO DAILY 03/28/18 03/28/18 metformin 1,000 mg PO DAILY 03/28/18 03/28/18 metoprolol succinate 100 mg PO DAILY 03/28/18 03/28/18 pantoprazole 40 mg PO DAILY 03/28/18 03/28/18 rivaroxaban 20 mg PO DAILY 03/28/18 03/28/18 rosuvastatin 20 mg PO DAILY 03/28/18 03/28/18 Allergies Allergy/AdvReac Type Severity Reaction Status Date / Time glipizide Allergy Abdominal Verified 03/28/18 20:42 Pain Review of Systems ROS: all other systems reviewed are negative [facility] Medical History Medical History Diabetes (Acute) HTN (hypertension) (Acute) Hyperlipidemia (Acute) Neuropathy (Acute) Pacemaker (Acute) Surgical History Surgical History Hx of cataract surgery (Acute) S/P CABG x 3 (Acute) Social History Social History Smoking Status: Former smoker How Often Do You Have a Drink Containing Alcohol: Never Recent Travel in [place] within the Last 8 Weeks: No Recent Out of Country Travel within the Last 8 Weeks: No Immunization History Tetanus Immunization: <5 Years Hx Influenza Vaccine This Season: No Exam Narrative Exam Narrative: GENERAL: Well-developed well-nourished male in no acute distress SKIN: Warm and dry. HEAD: Atraumatic. Normocephalic. EYES: Pupils equal and round. No scleral icterus. No injection or drainage. ENT: No nasal bleeding or discharge. Mucous membranes pink and moist. NECK: Trachea midline. No JVD. CARDIOVASCULAR: Regular rate and rhythm. No murmur appreciated. RESPIRATORY: No accessory muscle use. Clear to auscultation. Breath sounds equal bilaterally. GASTROINTESTINAL: Abdomen soft, non-tender, nondistended. Hepatic and splenic margins not palpable. Rectal examination reveals maroon colored Hemoccult positive stool. MUSCULOSKELETAL: No obvious deformities. No clubbing. No cyanosis. No edema. NEUROLOGICAL: Awake and alert. No obvious cranial nerve deficits. Motor grossly within normal limits. Normal speech. PSYCHIATRIC: Appropriate mood and affect; insight and judgment normal. Procedures Hemaprompt Stool Procedural Steps Taken: specimen placed in appropriate test area, developer placed on specimen and control areas and controls appropriately positive and negative Hemaprompt Stool Result: positive Course Initial Documented Vital Signs Temperature 98.7 F 03/28/18 20:20 Pulse Rate 90 03/28/18 20:20 Respiratory Rate 18 03/28/18 20:20 Blood Pressure 191/106 H 03/28/18 20:20 Pulse Oximetry 97 03/28/18 20:20 Last Documented Vital Signs Temperature 98.7 F 03/28/18 20:20 Pulse Rate 85 03/28/18 20:42 Respiratory Rate 18 03/28/18 20:42 Blood Pressure 164/88 H 03/28/18 20:42 Pulse Oximetry 99 03/28/18 20:42 Medical Decision Making [facility] Narrative Medical decision making narrative: 72-year-old male on Xarelto presents with 3 days of dark colored stools, one day prior and blood per rectum, several days of feeling mildly lightheaded and weak. Rectal examination was performed revealing maroon color and Hemoccult positive stools. Abdomen is soft and nontender. Plan is for lab work, he was given IV Protonix. Lab work is been reviewed. Hemoglobin is 10.9 which is pretty consistent with previous on record however given his age, anticoagulation status, acute symptomology, plan would be to admit him for further evaluation and serial hemoglobins. Discussed with the hospitalist who is agreeable. Medical Screen Exam Complete: Yes Emergency Medical Condition: Yes Differential Diagnosis Differential Diagnosis: Upper GI bleed, lower GI bleed, peptic ulcer disease, av malformation, malignancy, acute anemia Lab Data Result diagrams: 03/28/18 21:05 03/28/18 21:05 Lab Results 03/28/18 03/28/18 03/28/18 Range/Units 21:05 21:05 21:05 WBC 9.9 (4.0-11.0) th/mm3 RBC 3.54 L (4.50-5.90) mil/mm3 Hgb 10.9 L (13.0-17.0) gm/dL Hct 31.7 L (39.0-51.0) % MCV 89.5 (80.0-100.0) fL MCH 30.7 (27.0-34.0) pg MCHC 34.3 (32.0-36.0) % RDW 14.7 (11.6-17.2) % Plt Count 192 (150-450) th/mm3 MPV 8.1 (7.0-11.0) fL Neut % (Auto) 57.1 (16.0-70.0) % Lymph % (Auto) 30.6 (9.0-44.0) % Ford % (Auto) 9.2 H (0.0-8.0) % Eos % (Auto) 2.6 (0.0-4.0) % Baso % (Auto) 0.5 (0.0-2.0) % Neut # (Auto) 5.7 (1.8-7.7) th/mm3 Lymph # (Auto) 3.0 (1.0-4.8) th/mm3 Ford # (Auto) 0.9 (0.0-0.9) th/mm3 Eos # (Auto) 0.3 (0.0-0.4) th/mm3 Baso # (Auto) 0.0 (0.0-0.2) th/mm3 WBC Differential . Differential Comment Auto diff final PT 14.0 H (9.8-11.6) sec INR 1.4 Ratio APTT 45.7 H (24.3-30.1) sec Sodium 140 (136-145) meq/L Potassium 3.8 (3.5-5.1) meq/L Chloride 104 (98-107) meq/L Carbon Dioxide 23.5 (21.0-32.0) meq/L Anion Gap 13 (5-15) meq/L BUN 14 (7-18) mg/dL Creatinine 1.00 (0.60-1.30) mg/dL Estimated GFR 73 L (>89) mL/min Random Glucose 239 H (74-106) mg/dL Calcium 8.8 (8.5-10.1) mg/dL Total Bilirubin 0.4 (0.2-1.0) mg/dL AST 14 L (15-37) U/L ALT 16 (12-78) U/L Alkaline Phosphatase 52 (45-117) U/L Total Protein 7.4 (6.4-8.2) g/dL Albumin 3.7 (3.4-5.0) g/dL Blood Type Blood Type Recheck Antibody Screen 03/28/18 Range/Units 21:05 WBC (4.0-11.0) th/mm3 RBC (4.50-5.90) mil/mm3 Hgb (13.0-17.0) gm/dL Hct (39.0-51.0) % MCV (80.0-100.0) fL MCH (27.0-34.0) pg MCHC (32.0-36.0) % RDW (11.6-17.2) % Plt Count (150-450) th/mm3 MPV (7.0-11.0) fL Neut % (Auto) (16.0-70.0) % Lymph % (Auto) (9.0-44.0) % Ford % (Auto) (0.0-8.0) % Eos % (Auto) (0.0-4.0) % Baso % (Auto) (0.0-2.0) % Neut # (Auto) (1.8-7.7) th/mm3 Lymph # (Auto) (1.0-4.8) th/mm3 Ford # (Auto) (0.0-0.9) th/mm3 Eos # (Auto) (0.0-0.4) th/mm3 Baso # (Auto) (0.0-0.2) th/mm3 WBC Differential Differential Comment PT (9.8-11.6) sec INR Ratio APTT (24.3-30.1) sec Sodium (136-145) meq/L Potassium (3.5-5.1) meq/L Chloride (98-107) meq/L Carbon Dioxide (21.0-32.0) meq/L Anion Gap (5-15) meq/L BUN (7-18) mg/dL Creatinine (0.60-1.30) mg/dL Estimated GFR (>89) mL/min Random Glucose (74-106) mg/dL Calcium (8.5-10.1) mg/dL Total Bilirubin (0.2-1.0) mg/dL AST (15-37) U/L ALT (12-78) U/L Alkaline Phosphatase (45-117) U/L Total Protein (6.4-8.2) g/dL Albumin (3.4-5.0) g/dL Blood Type A Positive Blood Type Recheck Not needed Antibody Screen Negative Discharge Plan Discharge Disposition Patient Disposition: 30 Still Patient Discharge Condition Condition: Stable Discharge Details Diagnosis: GI bleed Physicians Team ED Provider: Santos Gregg ED Midlevel Provider: Chai Alfonso Primary Care Provider: [facility]ician [facility] /Orders / Referrals /Forms Prescriptions: No Action losartan 50 mg Tablet 50 mg PO DAILY RF: 0 metoprolol succinate 100 mg Tablet Extended Release 24 Hr 100 mg PO DAILY RF: 0 amlodipine 5 mg Tablet 5 mg PO DAILY RF: 0 aspirin [Aspirin Low Dose] 81 mg Tablet,Delayed Release (Dr/Ec) 81 mg PO DAILY RF: 0 levothyroxine [Synthroid] 25 mcg Tablet 25 mcg PO DAILY RF: 0 magnesium oxide 400 mg Tablet 400 mg PO DAILY RF: 0 pantoprazole 40 mg Tablet,Delayed Release (Dr/Ec) 40 mg PO DAILY RF: 0 ascorbic acid (vitamin C) 500 mg Capsule, Extended Release 500 mg PO DAILY RF: 0 gabapentin 300 mg Capsule 300 mg PO BID RF: 0 insulin aspart U-100 100 unit/mL Insulin Pen 10 unit SUB-Q TID RF: 0 rosuvastatin 20 mg Tablet 20 mg PO DAILY RF: 0 metformin 1,000 mg Tablet Extended Release 24hr 1,000 mg PO DAILY RF: 0 insulin glargine 100 unit/mL (3 mL) Insulin Pen 35 unit SUB-Q DAILY RF: 0 rivaroxaban 20 mg Tablet 20 mg PO DAILY RF: 0 Discharge Interventions Interventions: Vital Signs Last Done: 03/28/18 20:42 Status ED Status: With Doctor
[2018-03-28 21:50] LABS: Baso % (Auto) 0.5 % (0.0-2.0); Eos # (Auto) 0.3 th/mm3 (0.0-0.4); Eos % (Auto) 2.6 % (0.0-4.0); Hematocrit 31.7 % (39.0-51.0); Hemoglobin 10.9 gm/dL (13.0-17.0); Lymph % (Auto) 30.6 % (9.0-44.0); Mean Corpuscular HGB Conc 34.3 % (32.0-36.0); Mean Corpuscular Hemoglobin 30.7 pg (27.0-34.0); Mean Corpuscular Volume 89.5 fL (80.0-100.0); Mean Platelet Volume 8.1 fL (7.0-11.0); Mono # (Auto) 0.9 th/mm3 (0.0-0.9); Mono % (Auto) 9.2 % (0.0-8.0); Neut # (Auto) 5.7 th/mm3 (1.8-7.7); Neut % (Auto) 57.1 % (16.0-70.0); Platelet Count 192 th/mm3 (150-450); Red Blood Count 3.54 mil/mm3 (4.50-5.90); Red Cell Distribution Width 14.7 % (11.6-17.2); White Blood Count 9.9 th/mm3 (4.0-11.0)
[2018-03-28 22:00] LABS: Activated Partial Thrombo Time 45.7 sec (24.3-30.1); INR 1.4 Ratio
[2018-03-28 22:11] LABS: Alanine Aminotransferase 16 U/L (12-78); Albumin 3.7 g/dL (3.4-5.0); Anion Gap 13 meq/L (5-15); Aspartate Aminotransferase 14 U/L (15-37); Blood Urea Nitrogen 14 mg/dL (7-18); Calcium 8.8 mg/dL (8.5-10.1); Carbon Dioxide 23.5 meq/L (21.0-32.0); Chloride 104 meq/L (98-107); Glomerular Filtration Rate 73 mL/min (>89); Glucose,Random 239 mg/dL (74-106); Potassium 3.8 meq/L (3.5-5.1); Sodium 140 meq/L (136-145)
[2018-03-28 22:14] LABS: Alkaline Phosphatase 52 U/L (45-117); Total Protein 7.4 g/dL (6.4-8.2)
[2018-03-28] MEDS ORDERED: Dextrose 50% in Water 50 ML Vial IV.PUSH PRN (23:47)
--- NOTE | 2018-03-28 23:53 | P.HP ---
History of Present Illness Service: [facility] Primary Care Physician: [facility] History of Present Illness: 72-year-old male with past medical history significant for hypertension, hyperlipidemia, diabetes mellitus, neuropathy, coronary artery disease with pacemaker, atrial fibrillation anticoagulated on Xarelto presents to the emergency department for the evaluation of bright red blood per rectum. The patient reports that he recently mailed in Hemoccult cards to the [place] and he was called earlier today stating that he had blood in his stool. He reports a 4 day history of dark, tarry stools. He states that earlier today he had bright red blood per rectum. He endorses an associated nausea and abdominal bloating. Positive dizziness/lightheadedness. No fever/chills. No chest pain or shortness of breath. No lateralizing signs/symptoms. Inpatient Certification: I certify that the inpatient services were ordered in accordance with Medicare regulations governing the order. This includes certification that hospital inpatient services are reasonable and necessary and in the case of services not specified as inpatient-only under 42 CFR 419.22(n), that they are appropriately provided as inpatient services in accordance to with the 2-midnight benchmark under 43 CFR 412.3(e) Review of Systems All other systems reviewed negative except as stated in HPI PMFSH - History History Provided By: Patient - Medical History Medical History: Medical History (Last Updated 03/28/18 @ 23:50 by Moni Terrell MD) Atrial fibrillation Diabetes HTN (hypertension) Hyperlipidemia Neuropathy Pacemaker - Surgical History Surgical History: Surgical History (Last Updated 03/28/18 @ 23:50 by Moni Terrell MD) History of cardiac catheterization History of hernia repair Hx of cataract surgery Hx of cholecystectomy S/P CABG x 3 - Family History Family History: Family History (Last Updated 03/28/18 @ 23:50 by Moni Terrell MD) Other Colon cancer - Tobacco History Tobacco Use In Past 30 Days: No Smoking Status: Former smoker - Alcohol History How Often Do You Have a Drink Containing Alcohol: Never - Travel History Recent Travel in the [place] Within the Last 8 Weeks: No Recent Travel Out of the Country Within the Last 8 Weeks: No - Immunization History Tetanus Immunization: <5 Years Hx Influenza Vaccine This Season: No Medications and Allergies Active Medications: Active Medications Sodium Chloride (Ns Flush) 2 ml IV.FLUSH PRN PRN PRN Reason: FLUSH AFTER USING IV ACCESS Allergies Allergy/AdvReac Type Severity Reaction Status Date / Time glipizide Allergy Abdominal Verified 03/28/18 20:42 Pain Home Medications Medication Instructions Recorded Confirmed Type amlodipine 5 mg PO DAILY 03/28/18 03/28/18 History ascorbic acid (vitamin C) 500 mg PO DAILY 03/28/18 03/28/18 History aspirin [Aspirin Low Dose] 81 mg PO DAILY 03/28/18 03/28/18 History gabapentin 300 mg PO BID 03/28/18 03/28/18 History insulin aspart U-100 10 unit SUB-Q TID 03/28/18 03/28/18 History insulin glargine 35 unit SUB-Q DAILY 03/28/18 03/28/18 History levothyroxine [Synthroid] 25 mcg PO DAILY 03/28/18 03/28/18 History losartan 50 mg PO DAILY 03/28/18 03/28/18 History magnesium oxide 400 mg PO DAILY 03/28/18 03/28/18 History metformin 1,000 mg PO DAILY 03/28/18 03/28/18 History metoprolol succinate 100 mg PO DAILY 03/28/18 03/28/18 History pantoprazole 40 mg PO DAILY 03/28/18 03/28/18 History rivaroxaban 20 mg PO DAILY 03/28/18 03/28/18 History rosuvastatin 20 mg PO DAILY 03/28/18 03/28/18 History Exam Vital signs: Vital Signs 03/28/18 20:20 03/28/18 20:42 Temperature 98.7 F Pulse Rate 90 85 Respiratory Rate 18 18 Blood Pressure 191/106 H 164/88 H Pulse Oximetry 97 99 Intake & Output 03/28/18 03/28/18 03/29/18 06:59 18:59 06:59 Weight 72.575 kg Narrative: Gen.: No acute distress Head: Normocephalic. Atraumatic. EENT: Pupils equal round and reactive to light. Nose without drainage. Airway intact. Throat without injection. Cardiovascular: Regular rate and rhythm. No murmurs, rubs or gallops. Respiratory: Lungs clear to auscultation bilaterally. No wheezes or rhonchi. Abdomen: Soft, nontender, nondistended. No peritoneal signs. Musculoskeletal: No gross deformities. No edema. Skin: No obvious rashes or erythema. Neuro: Sensory and motor grossly intact. Cranial nerves II through XII grossly intact. Results - Labs CBC & Chem 7: 03/28/18 21:05 03/28/18 21:05 Labs: Laboratory Results - last 24 hr 03/28/18 03/28/18 03/28/18 21:05 21:05 21:05 WBC 9.9 RBC 3.54 L Hgb 10.9 L Hct 31.7 L MCV 89.5 MCH 30.7 MCHC 34.3 RDW 14.7 Plt Count 192 MPV 8.1 Neut % (Auto) 57.1 Lymph % (Auto) 30.6 [place] % (Auto) 9.2 H Eos % (Auto) 2.6 Baso % (Auto) 0.5 Neut # (Auto) 5.7 Lymph # (Auto) 3.0 [place] # (Auto) 0.9 Eos # (Auto) 0.3 Baso # (Auto) 0.0 WBC Differential . Differential Comment Auto diff final PT 14.0 H INR 1.4 APTT 45.7 H Sodium 140 Potassium 3.8 Chloride 104 Carbon Dioxide 23.5 Anion Gap 13 BUN 14 Creatinine 1.00 Estimated GFR 73 L Random Glucose 239 H Calcium 8.8 Total Bilirubin 0.4 AST 14 L ALT 16 Alkaline Phosphatase 52 Total Protein 7.4 Albumin 3.7 Blood Type Blood Type Recheck Antibody Screen 03/28/18 21:05 WBC RBC Hgb Hct MCV MCH MCHC RDW Plt Count MPV Neut % (Auto) Lymph % (Auto) [place] % (Auto) Eos % (Auto) Baso % (Auto) Neut # (Auto) Lymph # (Auto) [place] # (Auto) Eos # (Auto) Baso # (Auto) WBC Differential Differential Comment PT INR APTT Sodium Potassium Chloride Carbon Dioxide Anion Gap BUN Creatinine Estimated GFR Random Glucose Calcium Total Bilirubin AST ALT Alkaline Phosphatase Total Protein Albumin Blood Type A Positive Blood Type Recheck Not needed Antibody Screen Negative Caprini VTE Risk Assessment Caprini VTE Risk Assessment: Moderate/High Risk (score >= 2) Caprini Risk Assessment Model: Point Value = 1 Point Value = 2 Point Value = 3 Point Value = 5 Age 41-60 Minor surgery BMI > 25 kg/m2 Swollen legs Varicose veins or History of unexplained or recurrent spontaneous Oral contraceptives or hormone replacement Sepsis (< 1 month) Serious lung disease, including pneumonia (< 1 month) Abnormal pulmonary function Acute myocardial infarction Congestive heart failure (< 1 month) History of inflammatory bowel disease Medical patient at bed rest Age 61-74 Arthroscopic surgery Major open surgery (> 45 min) Laparoscopic surgery (> 45 min) Malignancy Confined to bed (> 72 hours) Immobilizing plaster cast Central venous access Age >= 75 History of VTE Family history of VTE Factor V Leiden Prothrombin [id number] Lupus anticoagulant Anticardiolipin antibodies Elevated serum homocysteine Heparin-induced thrombocytopenia Other congenital or acquired thrombophilia Stroke (< 1 month) Elective arthroplasty Hip, pelvis, or leg fracture Acute spinal cord injury (< 1 month) Prophylaxis Regimen: Total Risk Factor Score Risk Level Prophylaxis Regimen 0-1 Low Early ambulation 2 Moderate Order ONE of the following: *Sequential Compression Device (SCD) *Heparin 5000 units SQ BID 3-4 Higher Order ONE of the following medications: *Heparin 5000 units SQ TID *Enoxaparin/Lovenox 40 mg SQ daily (WT < 150 kg, CrCl > 30 mL/min) *Enoxaparin/Lovenox 30 mg SQ daily (WT < 150 kg, CrCl > 10-29 mL/min) *Enoxaparin/Lovenox 30 mg SQ BID (WT < 150 kg, CrCl > 30 mL/min) AND/OR *Sequential Compression Device (SCD) 5 or more Highest Order ONE of the following medications: *Heparin 5000 units SQ TID (Preferred with Epidurals) *Enoxaparin/Lovenox 40 mg SQ daily (WT < 150 kg, CrCl > 30 mL/min) *Enoxaparin/Lovenox 30 mg SQ daily (WT < 150 kg, CrCl > 10-29 mL/min) *Enoxaparin/Lovenox 30 mg SQ BID (WT < 150 kg, CrCl > 30 mL/min) AND *Sequential Compression Device (SCD) Assessment and Plan - Plan Assessment/plan: 1. Lower GI bleed/symptomatic anemia Patient with maroon colored stool on rectal exam in the emergency department Every 6 hours H&H IV Protonix Transfuse as needed Gastroenterology consulted, appreciate recommendations 2. Atrial fibrillation Holding home Xarelto given GI bleed Continue home medications 3. Diabetes mellitus Holding home long-acting insulin as patient n.p.o. Sliding-scale insulin Monitor blood glucose 4. Hypertension/hyperlipidemia/coronary artery disease/neuropathy Continue home medications Holding aspirin for GI bleed FEN N.p.o. Electrolytes: Monitor and replete as needed NS at 1 25 cc/hour Holding pharmacologic anticoagulation for GI bleed
[2018-03-28] MEDS: Sod Chloride 0.9% Inj 1,000 ML IV.CONT SCH (23:54)
[2018-03-29] MEDS: Insulin NovoLOG Aspart Correctional Sugar Inj SQ SCH ×5 (03:01→21:49)
[2018-03-29 04:29] LABS: Anion Gap 10 meq/L (5-15); Blood Urea Nitrogen 11 mg/dL (7-18); Carbon Dioxide 24.6 meq/L (21.0-32.0); Chloride 110 meq/L (98-107); Glomerular Filtration Rate Greater Than 89 mL/min (>89); Glucose,Random 120 mg/dL (74-106); Potassium 4.1 meq/L (3.5-5.1); Sodium 145 meq/L (136-145)
[2018-03-29] MEDS: Pantoprazole Inj 40 MG Vial IV.PUSH SCH (08:19)
[2018-03-29] MEDS: Gabapentin 300 MG Capsule PO SCH ×2 (08:19→20:14)
[2018-03-29] MEDS ORDERED: amLODIPine 5 MG Tablet PO SCH (09:00)
[2018-03-29 10:11] LABS: Baso % (Auto) 0.5 % (0.0-2.0); Eos # (Auto) 0.2 th/mm3 (0.0-0.4); Eos % (Auto) 2.7 % (0.0-4.0); Hematocrit 27.9 % (39.0-51.0); Hemoglobin 9.5 gm/dL (13.0-17.0); Lymph # (Auto) 2.3 th/mm3 (1.0-4.8); Lymph % (Auto) 33.4 % (9.0-44.0); Mean Corpuscular HGB Conc 33.9 % (32.0-36.0); Mean Corpuscular Hemoglobin 30.4 pg (27.0-34.0); Mean Corpuscular Volume 89.4 fL (80.0-100.0); Mean Platelet Volume 8.4 fL (7.0-11.0); Mono # (Auto) 0.6 th/mm3 (0.0-0.9); Mono % (Auto) 8.8 % (0.0-8.0); Neut # (Auto) 3.7 th/mm3 (1.8-7.7); Neut % (Auto) 54.6 % (16.0-70.0); Platelet Count 141 th/mm3 (150-450); Red Blood Count 3.12 mil/mm3 (4.50-5.90); Red Cell Distribution Width 14.8 % (11.6-17.2); White Blood Count 6.8 th/mm3 (4.0-11.0)
--- NOTE | 2018-03-29 13:13 | P.CONGI ---
History of Present Illness Consult date: 03/29/18 Consult reason: Lower GI bleed Chief complaint: GI Bleed History of Present Illness: This is a 72-year-old male who was admitted to the hospital on 03/28/2018 with symptoms of rectal bleeding bright red blood. Onset of symptoms initiated day of admission which also was maroon in color. Patient also had symptoms of melena stools 4 days before his admission associated with some dizziness. Minimal pain noted with bleeding, chief complaint was dizziness and some fatigue. Patient also notes a history of dysphasia with some symptoms of choking that have been evaluated in the past with EGD at the [facility] approximately 2 years ago. Patient also had colonoscopy during that time and notes a family history of colon cancer from his mother in her late 70s. Patient does associate some nausea without vomiting and some abdominal bloating/gas pains. Patient has been on Xarelto since November 2017 significant to his coronary artery disease and currently has pacemaker. He also has a history of hepatitis C and was treated with interferon back in the early 1999 timing. Labs show initial hemoglobin 10.9 and now 9.5, PT/INR 1.4, bilirubin and LFTs within normal ranges. Patient does note a history of constipation then alternating with some loose stools which could be related to IBS. Also notes previous cholecystectomy which could be associated with his loose stools. Gastroenterology was consulted to assist with patient's symptoms predominantly his dyspepsia and dysphasia as well as rectal bleeding, will need to rule out GI bleed. <Daria Parsons - Last Filed: 03/29/18 13:13> Review of Systems All other systems reviewed negative except as stated in HPI <Daria Parsons - Last Filed: 03/29/18 13:13> PMFSH - History History Provided By: Patient, Significant Other - Medical History Medical History: Medical History (Last Updated 03/28/18 @ 23:50 by Moni Terrell MD) Atrial fibrillation Diabetes HTN (hypertension) Hyperlipidemia Neuropathy Pacemaker - Surgical History Surgical History: Surgical History (Last Updated 03/28/18 @ 23:50 by Moni Terrell MD) History of cardiac catheterization History of hernia repair Hx of cataract surgery Hx of cholecystectomy S/P CABG x 3 - Family History Family History: Family History (Last Updated 03/28/18 @ 23:50 by Moni Terrell MD) Other Colon cancer - Tobacco History Second Hand Smoke Exposure: No Tobacco Use In Past 30 Days: No Smoking Status: Former smoker - Alcohol History How Often Do You Have a Drink Containing Alcohol: Never - Substance Use History Substance History: No History of Abuse - Travel History Recent Travel in the [place] Within the Last 8 Weeks: No Recent Travel Out of the Country Within the Last 8 Weeks: No - Immunization History Tetanus Immunization: <5 Years Hx Influenza Vaccine This Season: Yes <Daria Parsons - Last Filed: 03/29/18 13:13> - Medical History Medical History: Medical History (Last Updated 03/28/18 @ 23:50 by Moni Terrell MD) Atrial fibrillation Diabetes HTN (hypertension) Hyperlipidemia Neuropathy Pacemaker - Surgical History Surgical History: Surgical History (Last Updated 03/28/18 @ 23:50 by Moni Terrell MD) History of cardiac catheterization History of hernia repair Hx of cataract surgery Hx of cholecystectomy S/P CABG x 3 - Family History Family History: Family History (Last Updated 03/28/18 @ 23:50 by Moni Terrell MD) Other Colon cancer <Tanya Coelho - Last Filed: 03/29/18 13:34> Medications and Allergies Active Medications: Active Medications Amlodipine Besylate (Norvasc) 5 mg PO DAILY [facility] Last Admin: 03/29/18 08:19 Dose: 5 mg Atorvastatin Calcium (Lipitor) 40 mg PO DAILY [facility] Last Admin: 03/29/18 08:18 Dose: 40 mg Dextrose (D50w Vial) 50 ml IV.PUSH UNSCH PRN PRN Reason: PER HYPOGLYCEMIA PROTOCOL Gabapentin (Neurontin) 300 mg PO BID [facility] Last Admin: 03/29/18 08:19 Dose: 300 mg Glucagon (Glucagon Inj) 1 mg OTHER PRN PRN PRN Reason: for Hypoglycemia Protocol Sodium Chloride (Ns Inj) 1,000 mls @ 125 mls/hr IV.CONT .Q8H [facility] Last Infusion: 03/29/18 08:15 Dose: Infused Insulin Aspart (Novolog Insulin Correctional Sugar Inj) 0 unit SQ ACHS AND 3AM [facility]; Protocol Last Admin: 03/29/18 08:19 Dose: Not Given Levothyroxine Sodium (Synthroid) 25 mcg PO DAILY [facility] Last Admin: 03/29/18 08:18 Dose: 25 mcg Losartan Potassium (Cozaar) 50 mg PO DAILY [facility] Last Admin: 03/29/18 08:17 Dose: 50 mg Metoprolol Succinate (Toprol Xl) 100 mg PO DAILY [facility] Last Admin: 03/29/18 08:18 Dose: 100 mg Ondansetron HCl (Zofran Inj) 4 mg IV.PUSH Q6H PRN PRN Reason: NAUSEA Pantoprazole Sodium (Protonix Inj) 40 mg IV.PUSH DAILY [facility] Last Admin: 03/29/18 08:19 Dose: 40 mg Polyethylene Glycol/Electrolytes (Colyte Liq) 4,000 ml PO ONCE ONE Stop: 03/29/18 15:01 Sodium Chloride (Ns Flush) 2 ml IV.FLUSH BID [facility] Last Admin: 03/29/18 08:19 Dose: 2 ml Sodium Chloride (Ns Flush) 2 ml IV.FLUSH PRN PRN PRN Reason: FLUSH AFTER USING IV ACCESS <Daria Parsons M - Last Filed: 03/29/18 13:13> Active Medications: Active Medications Amlodipine Besylate (Norvasc) 5 mg PO DAILY [facility] Last Admin: 03/29/18 08:19 Dose: 5 mg Atorvastatin Calcium (Lipitor) 40 mg PO DAILY [facility] Last Admin: 03/29/18 08:18 Dose: 40 mg Dextrose (D50w Vial) 50 ml IV.PUSH UNSCH PRN PRN Reason: PER HYPOGLYCEMIA PROTOCOL Gabapentin (Neurontin) 300 mg PO BID [facility] Last Admin: 03/29/18 08:19 Dose: 300 mg Glucagon (Glucagon Inj) 1 mg OTHER PRN PRN PRN Reason: for Hypoglycemia Protocol Sodium Chloride (Ns Inj) 1,000 mls @ 125 mls/hr IV.CONT .Q8H [facility] Last Infusion: 03/29/18 08:15 Dose: Infused Insulin Aspart (Novolog Insulin Correctional Sugar Inj) 0 unit SQ ACHS AND 3AM [facility]; Protocol Last Admin: 03/29/18 13:07 Dose: Not Given Levothyroxine Sodium (Synthroid) 25 mcg PO DAILY [facility] Last Admin: 03/29/18 08:18 Dose: 25 mcg Losartan Potassium (Cozaar) 50 mg PO DAILY [facility] Last Admin: 03/29/18 08:17 Dose: 50 mg Metoprolol Succinate (Toprol Xl) 100 mg PO DAILY [facility] Last Admin: 03/29/18 08:18 Dose: 100 mg Ondansetron HCl (Zofran Inj) 4 mg IV.PUSH Q6H PRN PRN Reason: NAUSEA Pantoprazole Sodium (Protonix Inj) 40 mg IV.PUSH DAILY [facility] Last Admin: 03/29/18 08:19 Dose: 40 mg Polyethylene Glycol/Electrolytes (Colyte Liq) 4,000 ml PO ONCE ONE Stop: 03/29/18 15:01 Sodium Chloride (Ns Flush) 2 ml IV.FLUSH BID [facility] Last Admin: 03/29/18 08:19 Dose: 2 ml Sodium Chloride (Ns Flush) 2 ml IV.FLUSH PRN PRN PRN Reason: FLUSH AFTER USING IV ACCESS <Tanya Coelho - Last Filed: 03/29/18 13:34> Allergies Allergy/AdvReac Type Severity Reaction Status Date / Time glipizide Allergy Abdominal Verified 03/28/18 20:42 Pain Home Medications Medication Instructions Recorded Confirmed Type amlodipine 5 mg PO DAILY 03/28/18 03/28/18 History ascorbic acid (vitamin C) 500 mg PO DAILY 03/28/18 03/28/18 History aspirin [Aspirin Low Dose] 81 mg PO DAILY 03/28/18 03/28/18 History gabapentin 300 mg PO BID 03/28/18 03/28/18 History insulin aspart U-100 10 unit SUB-Q TID 03/28/18 03/28/18 History insulin glargine 35 unit SUB-Q DAILY 03/28/18 03/28/18 History levothyroxine [Synthroid] 25 mcg PO DAILY 03/28/18 03/28/18 History losartan 50 mg PO DAILY 03/28/18 03/28/18 History magnesium oxide 400 mg PO DAILY 03/28/18 03/28/18 History metformin 1,000 mg PO DAILY 03/28/18 03/28/18 History metoprolol succinate 100 mg PO DAILY 03/28/18 03/28/18 History pantoprazole 40 mg PO DAILY 03/28/18 03/28/18 History rivaroxaban 20 mg PO DAILY 03/28/18 03/28/18 History rosuvastatin 20 mg PO DAILY 03/28/18 03/28/18 History Exam Vital signs: Vital Signs 03/28/18 20:20 03/28/18 20:42 03/28/18 23:52 Temperature 98.7 F Pulse Rate 90 85 89 Respiratory Rate 18 18 18 Blood Pressure 191/106 H 164/88 H 170/75 H Pulse Oximetry 97 99 98 03/29/18 02:08 03/29/18 08:00 Temperature 98.1 F 98.0 F Pulse Rate 70 70 Respiratory Rate 18 17 Blood Pressure 167/72 H 175/77 H Pulse Oximetry 95 95 Intake & Output 03/28/18 03/29/18 03/29/18 18:59 06:59 18:59 Intake Total 1000 / 1000 1000 / 1000 Balance 1000 / 1000 1000 / 1000 Weight 72.7 kg Intake: IV 1000 / 1000 1000 / 1000 NS Inj 1,000 ML @ 125 mls/hr IV 1000 / 1000 .CONT .Q8H [facility] Rx#:[id number] NS Inj 1,000 ML @ Wide Open IV. 1000 / 1000 SIG BOLUS ONE Rx#:[id number] Oral 0 / 0 Other: # Voids 2 Date of Last Bowel Movement 03/28/18 03/28/18 - Constitutional mild distress - Routine HEENT Exam Head: Present: normocephalic ENT: Present: mucous membranes dry - Routine Neck Exam Present: supple - Routine Abdominal Exam Present: soft, normoactive bowel sounds - Routine Skin Exam Present: intact <Daria Parsons M - Last Filed: 03/29/18 13:13> Vital signs: Vital Signs 03/28/18 20:20 03/28/18 20:42 03/28/18 23:52 Temperature 98.7 F Pulse Rate 90 85 89 Respiratory Rate 18 18 18 Blood Pressure 191/106 H 164/88 H 170/75 H Pulse Oximetry 97 99 98 03/29/18 02:08 03/29/18 08:00 Temperature 98.1 F 98.0 F Pulse Rate 70 70 Respiratory Rate 18 17 Blood Pressure 167/72 H 175/77 H Pulse Oximetry 95 95 Intake & Output 03/28/18 03/29/18 03/29/18 18:59 06:59 18:59 Intake Total 1000 / 1000 1000 / 1000 Balance 1000 / 1000 1000 / 1000 Weight 72.7 kg Intake: IV 1000 / 1000 1000 / 1000 NS Inj 1,000 ML @ 125 mls/hr IV 1000 / 1000 .CONT .Q8H [facility] Rx#:[id number] NS Inj 1,000 ML @ Wide Open IV. 1000 / 1000 SIG BOLUS ONE Rx#:[id number] Oral 0 / 0 Other: # Voids 2 Date of Last Bowel Movement 03/28/18 03/28/18 <Tanya Coelho - Last Filed: 03/29/18 13:34> Results - Labs CBC & Chem 7: 03/29/18 03:54 03/29/18 03:54 Labs: Laboratory Results - last 24 hr 03/28/18 03/28/18 03/28/18 21:05 21:05 21:05 WBC 9.9 RBC 3.54 L Hgb 10.9 L Hct 31.7 L MCV 89.5 MCH 30.7 MCHC 34.3 RDW 14.7 Plt Count 192 MPV 8.1 Neut % (Auto) 57.1 Lymph % (Auto) 30.6 [place] % (Auto) 9.2 H Eos % (Auto) 2.6 Baso % (Auto) 0.5 Neut # (Auto) 5.7 Lymph # (Auto) 3.0 [place] # (Auto) 0.9 Eos # (Auto) 0.3 Baso # (Auto) 0.0 WBC Differential . Differential Comment Auto diff final PT 14.0 H INR 1.4 APTT 45.7 H Sodium 140 Potassium 3.8 Chloride 104 Carbon Dioxide 23.5 Anion Gap 13 BUN 14 Creatinine 1.00 Estimated GFR 73 L POC Glucose Random Glucose 239 H Calcium 8.8 Total Bilirubin 0.4 AST 14 L ALT 16 Alkaline Phosphatase 52 Total Protein 7.4 Albumin 3.7 Blood Type Blood Type Recheck Antibody Screen 03/28/18 03/29/18 03/29/18 21:05 02:48 03:54 WBC 6.8 RBC 3.12 L Hgb 9.5 L Hct 27.9 L MCV 89.4 MCH 30.4 MCHC 33.9 RDW 14.8 Plt Count 141 L MPV 8.4 Neut % (Auto) 54.6 Lymph % (Auto) 33.4 [place] % (Auto) 8.8 H Eos % (Auto) 2.7 Baso % (Auto) 0.5 Neut # (Auto) 3.7 Lymph # (Auto) 2.3 [place] # (Auto) 0.6 Eos # (Auto) 0.2 Baso # (Auto) 0.0 WBC Differential . Differential Comment Auto diff final PT INR APTT Sodium Potassium Chloride Carbon Dioxide Anion Gap BUN Creatinine Estimated GFR POC Glucose 125 H Random Glucose Calcium Total Bilirubin AST ALT Alkaline Phosphatase Total Protein Albumin Blood Type A Positive Blood Type Recheck Not needed Antibody Screen Negative 03/29/18 03/29/18 03:54 11:32 WBC RBC Hgb Hct MCV MCH MCHC RDW Plt Count MPV Neut % (Auto) Lymph % (Auto) [place] % (Auto) Eos % (Auto) Baso % (Auto) Neut # (Auto) Lymph # (Auto) [place] # (Auto) Eos # (Auto) Baso # (Auto) WBC Differential Differential Comment PT INR APTT Sodium 145 Potassium 4.1 Chloride 110 H Carbon Dioxide 24.6 Anion Gap 10 BUN 11 Creatinine 0.75 Estimated GFR Greater than 89 POC Glucose 191 H Random Glucose 120 H D Calcium 8.0 L D Total Bilirubin AST ALT Alkaline Phosphatase Total Protein Albumin Blood Type Blood Type Recheck Antibody Screen <Daria Parsons - Last Filed: 03/29/18 13:13> - Labs CBC & Chem 7: 03/29/18 03:54 03/29/18 03:54 Labs: Laboratory Results - last 24 hr 03/28/18 03/28/18 03/28/18 21:05 21:05 21:05 WBC 9.9 RBC 3.54 L Hgb 10.9 L Hct 31.7 L MCV 89.5 MCH 30.7 MCHC 34.3 RDW 14.7 Plt Count 192 MPV 8.1 Neut % (Auto) 57.1 Lymph % (Auto) 30.6 [place] % (Auto) 9.2 H Eos % (Auto) 2.6 Baso % (Auto) 0.5 Neut # (Auto) 5.7 Lymph # (Auto) 3.0 [place] # (Auto) 0.9 Eos # (Auto) 0.3 Baso # (Auto) 0.0 WBC Differential . Differential Comment Auto diff final PT 14.0 H INR 1.4 APTT 45.7 H Sodium 140 Potassium 3.8 Chloride 104 Carbon Dioxide 23.5 Anion Gap 13 BUN 14 Creatinine 1.00 Estimated GFR 73 L POC Glucose Random Glucose 239 H Calcium 8.8 Total Bilirubin 0.4 AST 14 L ALT 16 Alkaline Phosphatase 52 Total Protein 7.4 Albumin 3.7 Blood Type Blood Type Recheck Antibody Screen 03/28/18 03/29/18 03/29/18 21:05 02:48 03:54 WBC 6.8 RBC 3.12 L Hgb 9.5 L Hct 27.9 L MCV 89.4 MCH 30.4 MCHC 33.9 RDW 14.8 Plt Count 141 L MPV 8.4 Neut % (Auto) 54.6 Lymph % (Auto) 33.4 [place] % (Auto) 8.8 H Eos % (Auto) 2.7 Baso % (Auto) 0.5 Neut # (Auto) 3.7 Lymph # (Auto) 2.3 [place] # (Auto) 0.6 Eos # (Auto) 0.2 Baso # (Auto) 0.0 WBC Differential . Differential Comment Auto diff final PT INR APTT Sodium Potassium Chloride Carbon Dioxide Anion Gap BUN Creatinine Estimated GFR POC Glucose 125 H Random Glucose Calcium Total Bilirubin AST ALT Alkaline Phosphatase Total Protein Albumin Blood Type A Positive Blood Type Recheck Not needed Antibody Screen Negative 03/29/18 03/29/18 03:54 11:32 WBC RBC Hgb Hct MCV MCH MCHC RDW Plt Count MPV Neut % (Auto) Lymph % (Auto) [place] % (Auto) Eos % (Auto) Baso % (Auto) Neut # (Auto) Lymph # (Auto) [place] # (Auto) Eos # (Auto) Baso # (Auto) WBC Differential Differential Comment PT INR APTT Sodium 145 Potassium 4.1 Chloride 110 H Carbon Dioxide 24.6 Anion Gap 10 BUN 11 Creatinine 0.75 Estimated GFR Greater than 89 POC Glucose 191 H Random Glucose 120 H D Calcium 8.0 L D Total Bilirubin AST ALT Alkaline Phosphatase Total Protein Albumin Blood Type Blood Type Recheck Antibody Screen <Tanya Coelho A - Last Filed: 03/29/18 13:34> Assessment and Plan (1) IBS (irritable bowel syndrome) Status: Acute Code(s): K58.9 - Irritable bowel syndrome without diarrhea (2) Rectal bleeding Status: Acute Code(s): K62.5 - Hemorrhage of anus and rectum - Plan rectal bleeding bright red blood. Onset of symptoms initiated day of admission which also was maroon in color. Could be related to diverticular bleed versus hemorrhoid. melena stools 4 days before his admission associated with some dizziness. Minimal pain noted with bleeding, dizziness and some fatigue. history of dysphasia with some symptoms of choking and dyspepsia that have been evaluated in the past with EGD at the [facility] approximately 2 years ago. Patient also had colonoscopy during that time and notes a family history of colon cancer from his mother in her late 70s. Patient does associate some nausea without vomiting and some abdominal bloating/gas pains. Patient has been on Xarelto since November 2017 significant to his coronary artery disease and currently has pacemaker. history of hepatitis C and was treated with interferon back in the early 1999 timing. Anemia, hemoglobin 10.9 and now 9.5, PT/INR 1.4, bilirubin and LFTs within normal ranges. Possible IBS history of constipation then alternating with some loose stools Also notes previous cholecystectomy which could be associated with his loose stools. Gastroenterology was consulted to assist with patient's symptoms predominantly his dyspepsia and dysphasia as well as rectal bleeding, will need to rule out GI bleed. Complications and symptoms could be related to patient's recent usage of Xarelto. Plan Diet clear liquids today Consent for EGD colonoscopy in a.m. Recheck PT/INR in a.m. and call GI if greater than 1.4 Hold any blood thinners GoLYTELY prep PPI Zofran Monitor labs Further recommendations to follow Patient was seen per myself and Dr. Coelho, note was written on his behalf <Daria Parsons M - Last Filed: 03/29/18 13:13> (1) IBS (irritable bowel syndrome) Status: Acute Code(s): K58.9 - Irritable bowel syndrome without diarrhea (2) Rectal bleeding Status: Acute Code(s): K62.5 - Hemorrhage of anus and rectum - Attending Attestation Agree with above assessment and plan, will obtain consent for EGD and Colonoscopy in AM. Start bowel prep today. Further recommendations to follow. Thank you for the consult. <Tanya Coelho - Last Filed: 03/29/18 13:34>
--- NOTE | 2018-03-29 14:18 | P.PNIM ---
Subjective Interval history: Patient is being seen for follow-up with GI bleed. Patient laying in bed denies any pain or shortness of breath. Still complains of having red blood in the stool, abdominal bloating and some distention. Denies any nausea or vomiting Physical Exam Vital signs: Vital Signs 03/28/18 20:20 03/28/18 20:42 03/28/18 23:52 Temperature 98.7 F Pulse Rate 90 85 89 Respiratory Rate 18 18 18 Blood Pressure 191/106 H 164/88 H 170/75 H Pulse Oximetry 97 99 98 03/29/18 02:08 03/29/18 08:00 Temperature 98.1 F 98.0 F Pulse Rate 70 70 Respiratory Rate 18 17 Blood Pressure 167/72 H 175/77 H Pulse Oximetry 95 95 Intake & Output 03/28/18 03/29/18 03/29/18 18:59 06:59 18:59 Intake Total 1000 / 1000 1000 / 1000 Balance 1000 / 1000 1000 / 1000 Weight 72.7 kg Intake: IV 1000 / 1000 1000 / 1000 NS Inj 1,000 ML @ 125 mls/hr IV 1000 / 1000 .CONT .Q8H [facility] Rx#:[id number] NS Inj 1,000 ML @ Wide Open IV. 1000 / 1000 SIG BOLUS ONE Rx#:[id number] Oral 0 / 0 Other: # Voids 2 Date of Last Bowel Movement 03/28/18 03/28/18 Narrative: GENERAL: No apparent distress, well-nourished, well-developed. SKIN: Warm and dry. HEAD: Atraumatic. Normocephalic. EYES: Pupils equal and round. No scleral icterus. No injection or drainage. ENT: No nasal bleeding or discharge. Mucous membranes pink and moist. NECK: Trachea midline. No JVD. CARDIOVASCULAR: Regular rate and rhythm. RESPIRATORY: No accessory muscle use. Clear to auscultation. Breath sounds equal bilaterally. GASTROINTESTINAL: Abdomen slight abdominal distention, slight tenderness. Hepatic and splenic margins not palpable. MUSCULOSKELETAL: Extremities without clubbing, cyanosis, or edema. No obvious deformities. NEUROLOGICAL: Awake and alert. No obvious cranial nerve deficits. Motor grossly within normal limits. Five out of 5 muscle strength in the arms and legs. Normal speech. PSYCHIATRIC: Appropriate mood and affect; insight and judgment normal. Results - Labs CBC & Chem 7: 03/29/18 16:56 03/29/18 03:54 Laboratory Results - last 24 hr 03/28/18 03/28/18 03/28/18 21:05 21:05 21:05 WBC 9.9 RBC 3.54 L Hgb 10.9 L Hct 31.7 L MCV 89.5 MCH 30.7 MCHC 34.3 RDW 14.7 Plt Count 192 MPV 8.1 Neut % (Auto) 57.1 Lymph % (Auto) 30.6 [place] % (Auto) 9.2 H Eos % (Auto) 2.6 Baso % (Auto) 0.5 Neut # (Auto) 5.7 Lymph # (Auto) 3.0 [place] # (Auto) 0.9 Eos # (Auto) 0.3 Baso # (Auto) 0.0 WBC Differential . Differential Comment Auto diff final PT 14.0 H INR 1.4 APTT 45.7 H Sodium 140 Potassium 3.8 Chloride 104 Carbon Dioxide 23.5 Anion Gap 13 BUN 14 Creatinine 1.00 Estimated GFR 73 L POC Glucose Random Glucose 239 H Calcium 8.8 Total Bilirubin 0.4 AST 14 L ALT 16 Alkaline Phosphatase 52 Total Protein 7.4 Albumin 3.7 Blood Type Blood Type Recheck Antibody Screen 03/28/18 03/29/18 03/29/18 21:05 02:48 03:54 WBC 6.8 RBC 3.12 L Hgb 9.5 L Hct 27.9 L MCV 89.4 MCH 30.4 MCHC 33.9 RDW 14.8 Plt Count 141 L MPV 8.4 Neut % (Auto) 54.6 Lymph % (Auto) 33.4 [place] % (Auto) 8.8 H Eos % (Auto) 2.7 Baso % (Auto) 0.5 Neut # (Auto) 3.7 Lymph # (Auto) 2.3 [place] # (Auto) 0.6 Eos # (Auto) 0.2 Baso # (Auto) 0.0 WBC Differential . Differential Comment Auto diff final PT INR APTT Sodium Potassium Chloride Carbon Dioxide Anion Gap BUN Creatinine Estimated GFR POC Glucose 125 H Random Glucose Calcium Total Bilirubin AST ALT Alkaline Phosphatase Total Protein Albumin Blood Type A Positive Blood Type Recheck Not needed Antibody Screen Negative 03/29/18 03/29/18 03:54 11:32 WBC RBC Hgb Hct MCV MCH MCHC RDW Plt Count MPV Neut % (Auto) Lymph % (Auto) [place] % (Auto) Eos % (Auto) Baso % (Auto) Neut # (Auto) Lymph # (Auto) [place] # (Auto) Eos # (Auto) Baso # (Auto) WBC Differential Differential Comment PT INR APTT Sodium 145 Potassium 4.1 Chloride 110 H Carbon Dioxide 24.6 Anion Gap 10 BUN 11 Creatinine 0.75 Estimated GFR Greater than 89 POC Glucose 191 H Random Glucose 120 H D Calcium 8.0 L D Total Bilirubin AST ALT Alkaline Phosphatase Total Protein Albumin Blood Type Blood Type Recheck Antibody Screen Assessment and Plan - Assessment (1) GI bleed Code(s): K92.2 - Gastrointestinal hemorrhage, unspecified Status: Acute (2) IBS (irritable bowel syndrome) Code(s): K58.9 - Irritable bowel syndrome without diarrhea Status: Acute (3) Rectal bleeding Code(s): K62.5 - Hemorrhage of anus and rectum Status: Acute (4) A-fib Code(s): I48.91 - Unspecified atrial fibrillation Status: Acute (5) Symptomatic anemia Code(s): D64.9 - Anemia, unspecified Status: Acute (6) Diabetes mellitus Code(s): E11.9 - Type 2 diabetes mellitus without complications Status: Chronic (7) Hypertension Code(s): I10 - Essential (primary) hypertension Status: Acute - Plan 72-year-old male with past medical history significant for hypertension, hyperlipidemia, diabetes mellitus, neuropathy, coronary artery disease with pacemaker, atrial fibrillation anticoagulated on Xarelto presents to the emergency department for the evaluation of bright red blood per rectum. Lower GI bleed -Patient with maroon colored stool on rectal exam in the emergency department -serial H&H q 6 h -IV Protonix -Transfuse as needed -Gastroenterology consulted, plan for EGD colonoscopy in a.m., GoLYTELY prep, continue PPI, as needed Zofran -recheck PT/INR in a.m. and call GI if greater than 1.4 - Hold any blood thinners - Monitor labs Symptomatic anemia -serial H&H q 6 h -Hgb/Hct 9.3/26.9 today -Transfuse if needed Atrial fibrillation -Holding home Xarelto given GI bleed -Continue home medications, patient with permanent pacemaker Diabetes mellitus -Holding home long-acting insulin, NPO after MN for GI procedure tomorrow -monitor fasting blood glucose, cover with Sliding-scale insulin Hypertension -Elevated Blood pressure - increase amlodipine -add clonidine prn for SBP > 160 or DBP > 90 Hyperlipidemia/coronary artery disease/neuropathy -Continue home medications -Holding aspirin for GI bleed Discussed Condition With: Patient and nurse Discharge Planning: Plan for EGD tomorrow, plan for discharge when stable and cleared with GI.
[2018-03-29] MEDS ORDERED: Metoprolol Tartrate 25 MG Tablet PO ONE (14:23)
[2018-03-29] MEDS ORDERED: Chlorhexidine Gluconate 2% 1 Pack (2 Cloths) TOPICAL ONE (14:23)
[2018-03-29 14:50] LABS: Hematocrit 26.8 % (39.0-51.0)
[2018-03-29] MEDS ORDERED: PEG 3350/E-Lyte Soln 4000 ML Bottle PO ONE (15:00)
[2018-03-29] MEDS ORDERED: Sodium Chlor 0.9% Inj 500 ML IV.SIG SCH (15:00)
[2018-03-29] MEDS: Sod Chloride 0.9% Inj 1,000 ML IV.CONT SCH ×2 (16:02→17:32)
[2018-03-29 17:58] LABS: Hematocrit 26.9 % (39.0-51.0); Hemoglobin 9.3 gm/dL (13.0-17.0)
[2018-03-29] MEDS: amLODIPine 5 MG Tablet PO SCH (20:15)
[2018-03-29 21:55] LABS: Hematocrit 27.4 % (39.0-51.0); Hemoglobin 9.2 gm/dL (13.0-17.0)
[2018-03-30] MEDS: Sod Chloride 0.9% Inj 1,000 ML IV.CONT SCH ×2 (00:55→07:31)
[2018-03-30] MEDS: Insulin NovoLOG Aspart Correctional Sugar Inj SQ SCH ×3 (03:30→13:42)
[2018-03-30] MEDS ORDERED: Metoprolol Tartrate 25 MG Tablet PO SCH (04:00)
[2018-03-30] MEDS ORDERED: Sodium Chlor 0.9% Inj 500 ML IV.SIG SCH (06:00)
[2018-03-30 07:27] LABS: INR 1.1 Ratio; Prothrombin Time 10.9 sec (9.8-11.6)
[2018-03-30] MEDS ORDERED: Chlorhexidine Gluconate 2% 1 Pack (2 Cloths) TOPICAL ONE (09:00)
--- NOTE | 2018-03-30 11:29 | GIPROC ---
[facility] [address] [facility]. [facility], [address] EGD PROCEDURE REPORT EXAM DATE: 03/30/2018 PATIENT NAME: Donnell Underwood MR #: [id number] BIRTHDATE: 1945 ATTENDING: Tanya Coelho MD ORDER #: [id number] BANKRUPTCY ASSISTANT: Franklyn Gonsales and Corinne Burkett STATUS: inpatient INDICATIONS: The patient is a 72 yr old male here for an EGD due to hematochezia and melena PROCEDURE PERFORMED: EGD, diagnostic MEDICATIONS: Per Anesthesia and None. TOPICAL ANESTHETIC: none CONSENT: The patient understands the risks and benefits of the procedure and understands that these risks include, but are not limited to: sedation, allergic reaction, infection, perforation and/or bleeding. Alternative means of evaluation and treatment include, among others: physical exam, x-rays, and/or surgical intervention. The patient elects to proceed with this endoscopic procedure. medical equipment was checked for proper function. Hand hygiene and appropriate measures for infection prevention was taken. After the risks, benefits and alternatives of the procedure were thoroughly explained, Informed consent was verified, confirmed and timeout was successfully executed by the treatment team. The patient was anesthetized with topical anesthesia and the EC-3490Li (Pedi C) endoscope was introduced through the mouth and advanced to the second portion of the duodenum. Retroflexion was performed and was normal The gastroscope was then slowly withdrawn and removed. ESOPHAGUS: The mucosa of the esophagus appeared normal. STOMACH: The mucosa of the stomach appeared normal. DUODENUM: The duodenal mucosa appeared normal in the duodenal bulb, 2nd part duodenum, and 3rd part duodenum. ADVERSE EVENTS: There were no complications. IMPRESSIONS: 1. The esophagus appeared normal 2. The mucosa of the stomach appeared normal 3. Normal duodenal mucosa in the duodenal bulb, 2nd part duodenum, and 3rd part duodenum 4. Retroflexion was performed and was normal RECOMMENDATIONS: No treatment PATIENT CONDITION: stable DISPOSITION: Observation REPEAT EXAM: NONE Tanya Coelho MD eSigned: Tanya Coelho MD 03/30/2018 11:29 AM cc:
--- NOTE | 2018-03-30 11:35 | GIPROC ---
[facility] [address] [facility]. [facility], [address] COLONOSCOPY PROCEDURE REPORT EXAM DATE: 03/30/2018 PATIENT NAME: Donnell Underwood MR #: [id number] BIRTHDATE: 1945 ENDOSCOPIST: Tanya Coelho MD ORDER #: [id number] TILE DESIGNER: Franklyn Gonsales and Corinne Burkett STATUS: inpatient INDICATIONS: The patient is a 72 yr old male here for a colonoscopy due to hematochezia PROCEDURE PERFORMED: Colonoscopy, diagnostic MEDICATIONS: Per Anesthesia and None. PREP QUALITY: fair PREP TYPE:GoLytely ESTIMATED BLOOD LOSS: None CONSENT: The patient understands the risks and benefits of the procedure and understands that these risks include, but are not limited to: sedation, allergic reaction, infection, perforation and/or bleeding. Alternative means of evaluation and treatment include, among others: physical exam, x-rays, and/or surgical intervention. The patient elects to proceed with this endoscopic procedure. medical equipment was checked for proper function. Hand hygiene and appropriate measures for infection prevention was taken. After the risks, benefits and alternatives of the procedure were thoroughly explained, Informed consent was verified, confirmed and timeout was successfully executed by the treatment team. A digital exam revealed no abnormalities of the rectum The Pentax EC-3490Li endoscope was introduced through the anus and advanced to the cecum, which was identified by both the appendix and ileocecal valve. The instrument was then slowly withdrawn as the colon was fully examined. COLON FINDINGS: Diverticulum was found in the sigmoid colon. The opening was medium sized. Retroflexed views revealed internal hemorrhoids and Retroflexed views revealed large internal hemorrhoids The scope was then completely withdrawn from the patient and the procedure terminated. PROCEDURE WITHDRAWAL TIME:9minutes ADVERSE EVENTS: There were no complications. IMPRESSIONS: 1. 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 Retroflexed views revealed large internal hemorrhoids RECOMMENDATIONS: 1. High fiber diet 2. No seeds, nuts and popcorn in diet RECALL: Return 10 years Colonoscopy Tanya Coehlo MD eSigned: Tanya Coelho MD 03/30/2018 11:35 AM cc:
[2018-03-30] MEDS: Pantoprazole Inj 40 MG Vial IV.PUSH SCH (13:42)
[2018-03-30] MEDS: amLODIPine 5 MG Tablet PO SCH (13:42)
[2018-03-30] MEDS: Gabapentin 300 MG Capsule PO SCH (13:42)
--- NOTE | 2018-03-30 14:11 | P.DS ---
Date of admission: 03/29/18 01:22 Primary care physician: [facility] Attending physician on discharge: Salo Rees Anticipated date of discharge: 03/30/18 Brief History from admission: 72-year-old male with past medical history significant for hypertension, hyperlipidemia, diabetes mellitus, neuropathy, coronary artery disease with pacemaker, atrial fibrillation anticoagulated on Xarelto presents to the emergency department for the evaluation of bright red blood per rectum. The patient reports that he recently mailed in Hemoccult cards to the MD and he was called earlier today stating that he had blood in his stool. He reports a 4 day history of dark, tarry stools. He states that earlier today he had bright red blood per rectum. He endorses an associated nausea and abdominal bloating. Positive dizziness/lightheadedness. No fever/chills. No chest pain or shortness of breath. No lateralizing signs/symptoms. Patient update on day of discharge: Cleared with GI Dr. Coelho for discharge. May restart aspirin and xarelto per GI DS: Diagnosis - Discharge Diagnosis (1) GI bleed Status: Acute (2) IBS (irritable bowel syndrome) Status: Acute (3) Rectal bleeding Status: Acute (4) A-fib Status: Acute (5) Symptomatic anemia Status: Acute (6) Diabetes mellitus Status: Chronic (7) Hypertension Status: Acute (8) Internal hemorrhoids Status: Acute DS: Summary Hospital Course: 72-year-old male with past medical history significant for hypertension, hyperlipidemia, diabetes mellitus, neuropathy, coronary artery disease with pacemaker, atrial fibrillation anticoagulated on Xarelto presents to the emergency department for the evaluation of bright red blood per rectum. Follow-up and discharge planning status post GI bleed. Patient laying in bed just came back from EGD and colonoscopy today. Denies any bleeding or blood in the stool. Denies any nausea or vomiting. Denies any pain or shortness of breath. Patient is cleared by GI for discharge and cleared to restart Xarelto and aspirin. - Time Spent with Patient Total time spent providing and/or coordinating discharge services: Less than 30 minutes - Quality: VTE Deep Vein Thrombosis/Pulmonary Embolism Present on Admission: No Exam Vital signs: Vital Signs 03/29/18 16:00 03/29/18 20:00 03/30/18 00:00 Temperature 98.9 F 97.7 F 97.7 F Pulse Rate 69 74 79 Respiratory Rate 18 18 18 Blood Pressure 150/81 H 191/80 H 175/76 H Pulse Oximetry 97 97 97 03/30/18 11:38 03/30/18 11:51 Temperature 97.4 F L 97.5 F L Pulse Rate 82 75 Respiratory Rate 18 18 Blood Pressure 143/65 H 134/65 Pulse Oximetry 98 98 Intake & Output 03/29/18 03/30/18 03/30/18 18:59 06:59 18:59 Intake Total 1999 1000 / 1000 200 / 200 Balance 1999 1000 1000 200 / 200 Weight 65 kg Intake: IV 1999 1000 / 1000 NS Inj 1,000 ML @ 125 mls/hr IV 1999 1000 / 1000 .CONT .Q8H ELLIS Rx#:[id number] Oral 0 / 0 Anesthesia Amount 200 / 200 Other: # Voids 5 3 Date of Last Bowel Movement 03/28/18 03/29/18 03/30/18 # Bowel Movements 5 6 Narrative: GENERAL: no apparent distress, well nourished, well built SKIN: Warm and dry. HEAD: Atraumatic. Normocephalic. EYES: Pupils equal and round. No scleral icterus. No injection or drainage. ENT: No nasal bleeding or discharge. Mucous membranes pink and moist. NECK: Trachea midline. No JVD. CARDIOVASCULAR: Regular rate and rhythm. RESPIRATORY: No accessory muscle use. Clear to auscultation. Breath sounds equal bilaterally. GASTROINTESTINAL: Abdomen non-tender, slight distention, slight umbilical hernia noted. Hepatic and splenic margins not palpable. MUSCULOSKELETAL: Extremities without clubbing, cyanosis, or edema. No obvious deformities. NEUROLOGICAL: Awake and alert. No obvious cranial nerve deficits. Motor grossly within normal limits. Five out of 5 muscle strength in the arms and legs. Normal speech. PSYCHIATRIC: Appropriate mood and affect; insight and judgment normal. Results Procedures completed during hospitalization: EGD: IMPRESSIONS: 1. The esophagus appeared normal, 2. The mucosa of the stomach appeared normal 3. Normal duodenal mucosa in the duodenal bulb, 2nd part duodenum, and 3rd part duodenum 4. Retroflexion was performed and was normal Colonoscopy: IMPRESSIONS: 1. 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 Retroflexed views revealed large internal hemorrhoids RECOMMENDATIONS: 1. High fiber diet, 2. No seeds, nuts and popcorn in diet RECALL: Return 10 years Colonoscopy Labs on day of discharge: Labs from last 24 hours 03/30/18 03/30/18 03/30/18 09:45 06:09 02:21 Hgb Hct PT 10.9 INR 1.1 POC Glucose 185 H 147 H 03/29/18 03/29/18 03/29/18 21:14 20:16 17:24 Hgb 9.2 L Hct 27.4 L PT INR POC Glucose 154 H 212 H 03/29/18 03/29/18 03/29/18 16:56 14:11 08:15 Hgb 9.3 L 9.0 L Hct 26.9 L 26.8 L PT INR POC Glucose 149 H Discharge Plan - Discharge Disposition Patient Disposition: Discharge Home - Discharge Condition Condition: Stable - Discharge Order Discharge Orders: Discharge Order (Routine); Ordered 03/30/18 Ordered By: Caitlin Benoit [facility] Clear for Discharge (Routine); Ordered 03/30/18 Ordered By: Caitlin Benoit Shirley - Physicians Team Primary Care Provider: [facility] Attending Provider: Salo Rees Other Providers: Tanya Coelho MD
== END 2018-03-30 16:36 | disposition home or self-care (01) ==
LOC: NEPC 19:56 → NEDA 22:30 → INTOOBSV 22:30 → OBSVTOIN 23:45 → N07 03-29 01:42
PROVIDERS: ADMIT Internal Medicine; ATTEND Internal Medicine
PROC: PANENDO (2018-03-30 10:51)
PROC: COLONOS (2018-03-30 10:51)